=== PATIENT | female | born 1940 | race Caucasian/White ===

== ENCOUNTER 2020-07-13 09:49 | Outpatient (CLI) | payer MEDICARE, SELFPAY ==
--- NOTE | ~2020-07-13 | MM_ITS ---
EXAMINATION: MM screening [facility] BI w ximena HISTORY: Screening mammogram TECHNIQUE: Craniocaudal and mediolateral oblique 3-D tomosynthesis images were obtained and synthetic 2-D images were generated. CAD analysis was submitted and interpreted. COMPARISON: 06/20/2109, 04/08/2016, 07/18/2014 BREAST PARENCHYMAL COMPOSITION: There are scattered areas of fibroglandular density. FINDINGS: Scattered benign-appearing calcifications are present. There is no evidence of suspicious m ass, calcification, or architectural distortion to suggest malignancy in either breast. There has bee n no suspicious interval change. IMPRESSION: 1. No mammographic evidence of malignancy. 2. Recommend routine screening mammography in one year. BI-RADS Category 2: Benign finding(s). Reviewed, dictated and finalized at location A. 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
--- NOTE | ~2020-07-13 | DEXA_ITS ---
Bone Density Report Name: Yolanda Aguirre Age: 79 Sex: Female Ethnicity: White Date of : 1940 Indication: postmenopausal; height loss; Referring Provider: Bianca Bravo Study: Bone densitometry was performed. Exam Date: July 13, 2020 Accession number: [id number] Bone Density: Region BMD T-score Z-score Classification AP Spine (L1-L4) 1.136 0.8 3.4 Normal Femoral Neck (Left) 0.646 -1.8 0.4 Osteopenia Total Hip (Left) 0.833 -0.9 1.1 Normal Total Hip Bilateral Avg 0.873 -0.5 1.5 Normal Femoral Neck (Right) 0.699 -1.4 0.9 Osteopenia Total Hip (Right) 0.913 -0.2 1.8 Normal World Health Organization criteria for BMD impression classify patients as: Normal (T-score at or above -1.0), Osteopenia (T-score between -1.0 and -2.5), or Osteoporosis (T-score at or below -2.5). 10-year Fracture Risk(1): Major Osteoporotic Fracture 14% Hip Fracture 3.6% Reported Risk Factors: [place] (), Neck BMD=0.646, BMI=30.0 (1) FRAX(R) Version 3.08. Fracture probability calculated for an untreated patient. Fracture probability may be lower if the patient has received treatment. Previous Exams: Region Exam Age BMD T-score BMD Change BMD Change Date g/cm2 vs Baseline vs Previous AP Spine(L1-L4) 07/13/2020 79 1.136 0.8 0.071(6.6%)# 0.065(6.1%)* 04/08/2016 75 1.071 0.2 0.005(0.5%)# -0.045(-4.0%)# 05/26/2011 70 1.115 0.6 0.050(4.7%)* 0.050(4.7%)* 10/28/2008 68 1.066 0.2 Total Hip(Left) 07/13/2020 79 0.833 -0.9 -0.070(-7.8%)# -0.010(-1.1%) 04/08/2016 75 0.843 -0.8 -0.061(-6.7%)# -0.018(-2.1%)# 05/26/2011 70 0.861 -0.7 -0.043(-4.8%)* -0.043(-4.8%)* 10/28/2008 68 0.904 -0.3 Total Hip(Right) 07/13/2020 79 0.913 -0.2 -0.002(-0.2%)# 0.083(9.9%)* 04/08/2016 75 0.831 -0.9 -0.085(-9.2%)# -0.054(-6.1%)# 05/26/2011 70 0.885 -0.5 -0.031(-3.4%)* -0.031(-3.4%)* 10/28/2008 68 0.915 -0.2 *Denotes significance at 95% confidence level, LSC for AP Spine = 0.022 g/cm2, LSC for Total Hip = 0.027 g/cm2 Clinical Information Provided by Patient: Has used the following medications: Vitamin D, Calcium Patient maximum height was 65 No regular weight bearing exercise Drinks caffeinated beverages Onset of menses at age 13 Number of children 4 Impression: The patient has low bone mass, based on the Left Femoral Neck T-score. The patient has an estimated ten-year risk of hip f
== END 2020-07-13 09:50 | disposition home or self-care (01) ==
PROVIDERS: PCP Family Medicine; Visit Provider Physician Assistant
DX: Z12.31 Encounter for screening mammogram for malignant neoplasm of breast (principal); Z78.0 Asymptomatic menopausal state; M85.852 Other specified disorders of bone density and structure, left thigh; M85.851 Other specified disorders of bone density and structure, right thigh
CPT/HCPCS: 77063; 77067; 77080

== ENCOUNTER 2022-07-14 09:51 | Outpatient (CLI) | payer MEDICARE, SELFPAY ==
--- NOTE | ~2022-07-14 | DEXA_ITS ---
Bone Density Report Name: PATRICIO JACKMAN Age: 81 Sex: Female Ethnicity: White Date of : 1940 Indication: postmenopausal; screening for osteoporosis; height loss; Referring Provider: GABRIELA REYNOLDS Study: Bone densitometry was performed. Exam Date: July 14, 2022 Accession number: [id number] Bone Density: Region BMD T-score Z-score Classification AP Spine(L1-L4) 1.118 0.6 3.4 Normal Femoral Neck (Left) 0.611 -2.1 0.2 Osteopenia Total Hip (Left) 0.821 -1.0 1.1 Normal Femoral Neck (Right) 0.697 -1.4 1.0 Osteopenia Total Hip (Right) 0.879 -0.5 1.6 Normal Total Hip Mean 0.850 -0.8 1.4 Normal World Health Organization criteria for BMD impression classify patients as: Normal (T-score at or above -1.0), Osteopenia (T-score between -1.0 and -2.5), or Osteoporosis (T-score at or below -2.5). 10-year Fracture Risk(1): Major Osteoporotic Fracture 16% Hip Fracture 4.9% Reported Risk Factors: [place] (), Neck BMD=0.611, BMI=29.8 (1) FRAX(R) Version 3.08. Fracture probability calculated for an untreated patient. Fracture probability may be lower if the patient has received treatment. Clinical Information Provided by Patient: Has used the following medications: Vitamin D, Calcium Patient maximum height was 65 Menopause Age: 51 No regular weight bearing exercise Drinks caffeinated beverages Onset of menses at age 12 Number of children 5 Impression: The patient has low bone mass, based on the Left Femoral Neck T-score. The patient has an estimated ten-year risk of hip fracture of 4.9% and an estimated ten-year risk of major fracture of 16%, based on the WHO FRAX algorithm. Discussion: BONE DENSITY IS LOW AT ONE OR MORE SKELETAL SITES. THE PATIENT'S BMD AND CLINICAL RISK FACTORS CONTRIBUTE TO THIS PATIENT'S INCREASED RISK OF FRACTURE. This patient's lowest T-score is low at one or more skeletal sites. It meets the World Health Organization's (WHO) criteria for ?low bone mass? (T-score between -1.0 and -2.5). The patient's 10-year risk of hip fracture as calculated by FRAX exceeds the threshold where pharmacological therapy is recommended by the National Osteoporosis Foundation (NOF). However, all treatment decisions require clinical judgment and consideration of individual patient factors, including patient preferences, comorbidities, previous drug use, risk factors not captured in the FRAX model (e.g., frailty, falls, vitamin D deficiency, increased bone turnover, interval significant decline in bone density) and possible under or overestimation of fracture risk by FRAX. The patient should follow a healthful lifestyle (good nutrition with adequate calcium and vitamin D, and appropriate weight-bearing exercise). Follow-Up: Consider a repeat BMD and Vertebral Fr
--- NOTE | ~2022-07-14 | MM_ITS ---
EXAMINATION: MM screening [facility] BI w ximena HISTORY: Screening TECHNIQUE: Craniocaudal and mediolateral oblique 3-D tomosynthesis images were obtained and synthetic 2-D images were generated. CAD analysis was submitted and interpreted. COMPARISON: Comparison to multiple prior studies sequentially, with oldest reviewed study dated 10/2012. BREAST PARENCHYMAL COMPOSITION: There are scattered areas of fibroglandular density. FINDINGS: There is no evidence of suspicious mass, calcification, or architectural distortion to sugg est malignancy in either breast. There has been no suspicious interval change. IMPRESSION: 1. No mammographic evidence of malignancy. 2. Recommend routine screening mammography in one year. 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
== END 2022-07-14 09:52 | disposition home or self-care (01) ==
PROVIDERS: PCP Family Medicine; Visit Provider Family Medicine
DX: Z12.31 Encounter for screening mammogram for malignant neoplasm of breast (principal); Z78.0 Asymptomatic menopausal state; M85.852 Other specified disorders of bone density and structure, left thigh; M85.851 Other specified disorders of bone density and structure, right thigh
CPT/HCPCS: 77063; 77067; 77080

== ENCOUNTER → 2022-10-18 11:08 | Outpatient (CLI) | payer MEDICARE, SELFPAY ==
--- NOTE | ~2022-10-18 | XR_ITS ---
Clinical Indication: Swelling PA and lateral views of the chest: Comparison: 07/12/2016 Findings: The lungs are clear, without evidence of focal consolidation or pleural effusion. Cardiome diastinal silhouette is stable, status post aortic valve replacement.. Bones and soft tissues are unr emarkable. Impression: Clear lungs. Status post aortic valve replacement. Reviewed, dictated and finalized at location . Impression: Clear lungs. Status post aortic valve replacement.
== END ==
PROVIDERS: PCP Family Medicine; Visit Provider Family Medicine
DX: R22.2 Localized swelling, mass and lump, trunk (principal); Z95.2 Presence of prosthetic heart valve
CPT/HCPCS: 71046

== ENCOUNTER 2024-12-15 16:58 | Emergency (ER) | payer MEDICARE, SELFPAY ==
--- NOTE | ~2024-12-15 | CT_ITS ---
History: Fall with loss of consciousness PROCEDURE: CT head without contrast. COMPARISON: None TECHNIQUE: Axial imaging of the head performed from the skull base to the vertex without IV contrast. Sagittal a nd coronal reformations obtained. DLP: 605 mGy-cm FINDINGS: The ventricles are enlarged. The dilatation of the ventricles is proportional to the degree of sulcal prominence, not uncommon in the senescent brain. Decreased attenuation is identified within the periventricular white matter, likely secondary to micr ovascular ischemic disease, in a patient of this age. There is no mass, mass effect or midline shift. Acute intracranial hemorrhage is identified along the right falx, high in the convexity, likely relat ed to recent trauma. This focus of hemorrhage measures 19 mm in cranial to caudal dimension, and 3.3 mm in medial to lateral dimension. Left occipital scalp hematoma without underlying fracture. Visualized paranasal sinuses are clear. The mastoid air cells are well aerated. No acute displaced fractures within the overlying cranium. Impression: Small acute intracranial hemorrhage along the right falx, high in the convexity, as detailed above. No surrounding edema. No midline shift. These findings were discussed with Ani Harp at 7:00 PM on 12/15/2024 Reviewed, dictated and finalized at location A. Impression: Small acute intracranial hemorrhage along the right falx, high in the convexity , as detailed above. No surrounding edema. No midline shift. These findings were discussed with Ani Hapr at 7:00 PM on 12/15/2024
--- NOTE | ~2024-12-15 | CT_ITS ---
CLINICAL INDICATION: COMPARISON: . TECHNIQUE: Multiple contiguous axial images of the chest was performed without the administration of intravenous contrast. This CT examination was performed utilizing dose reduction techniques. DLP: 280 mGy-cm FINDINGS/OBSERVATIONS: LUNG: Redemonstration of the left sided pneumothorax, previously seen on CT examination of the cervical spi ne. Lateral scar tissue is present, maintaining the left upper lobe without complete collapse. The left lower lobe is intact, with only a small posterior medial pneumothorax, as well as a small le ft-sided pleural effusion, likely hemorrhage from rib fractures. No right-sided pneumothorax is present. HEART: The heart is enlarged, without pericardial effusion. MEDIASTINUM: No pathologically enlarged or morphologically suspicious lymph nodes are identified within the medias tinum, bilateral axilla, within the soft tissues of the anterior chest wall. SOFT TISSUES OF THE CHEST: Unremarkable. BONES OF THE CHEST: Acute minimally displaced fractures of the left anterior lateral third through eighth ribs. No right-sided rib fractures are present. The sternum is intact, with multiple sternal wires. No lytic or blastic lesions are identified. IMPRESSION: Left-sided pneumothorax, of approximately 15-20%, as detailed above. Acute minimally displaced fractures of the left anterior lateral third through eighth ribs. These findings were discussed with Ani Harp at 7:10 PM on 12/15/2024 Reviewed, dictated and finalized at location A.
--- NOTE | ~2024-12-15 | CT_ITS ---
History: Fall PROCEDURE: CT cervical spine without intravenous contrast. COMPARISON: None TECHNIQUE: Multiple contiguous axial images of the cervical spine were performed without the administration of i ntravenous contrast. DLP: 450 mGy-cm FINDINGS: Straightening and slight reversal of the normal curvature of the cervical spine is identified, likely muscular in origin. Severe degenerative disease is identified with osteophyte formation, disc space narrowing, endplate c hanges and vacuum phenomena. Facet arthropathy is also noted. No acute fractures are present within the cervical spine. The right lung apex is unremarkable. A left upper lobe pneumothorax is present, for which the extent will be visualized on CT examination of the chest, performed on the same day. No soft tissue abnormality is present. The airway is patent. Impression: Straightening and slight reversal of the normal curvature of the cervical spine, likely muscular in o rigin. Degenerative disease, without acute fracture. Left-sided pneumothorax, the extent of which will be better delineated on CT examination of the chest , performed on the same day. These findings were discussed with Ani Harp at 7:10 PM on 12/15/2024. Reviewed, dictated and finalized at location A. Impression: Straightening and slight reversal of the normal curvature of the cervical spine , likely muscular in origin. Degenerative disease, without acute fracture. Left-sided pneumothorax, the extent of which will be better delineated on CT ex amination of the chest, performed on the same day. These findings were discussed with Ani Harp at 7:10 PM on 12/15/2024.
--- OUTSIDE RECORDS SUMMARY | 2024-12-15 17:00 | XMS_ITS | Referral Summary ---
Author Organization [facility] [address] [facility] [address] Address [address] [place] [address] Care Team Providers Care Web Production Manager Name Role Phone Ani Leon MD Primary Care Provider Encounters Date Type Department Care Team Description 09/27/2024 11:00 AM FIRE EXTINGUISHER REPAIRER Office Visit [facility] Cardiology [address] [facility] [address] [place] [address] Shaun Benton MD S/P aortic valve replacement with bioprosthetic valve (Primary Dx); History of coronary artery bypass surgery from Last 3 Months Allergies No known active allergies Medications multivit-minera x-jgpf-eqlijb (CENTRUM SILVER ULTRA WOMEN'S) tablet 0 0 5 Active omega-3 fatty acids-vitamin E (FISH OIL) 1,000 mg capsule take 1 by oral route every day 0 0 5 Active aspirin (ASPIR-81) 81 mg tablet take 1 Tablet by oral route every day 0 0 5 Active lisinopril (PRINIVIL,ZESTR IL) 5 mg tablet take 1 tablet by oral route 2 times every day 30 5 5 Active nitroglycerin (NITROSTAT) 0.[address] 1 tablet by sublingual route at the 1st sign of attack; may repeat every 5 min until relief; if pain persists after 3 tablets in 15 min, prompt medical attention is recommended 0 0 6 Active metFORMIN (GLUCOPHAGE) 1,000 mg tablet take 1 tablet by oral route 2 times every day with morning and evening meals 0 0 7 Active Additional Information Patient not taking.Reported on 09/27/2024 metoprolol (LOPRESSOR) 25 mg tablet take 1/2 tablet by oral route 2 times every day 0 0 5 Active Additional Information Patient taking differently:25 mgoral 2 times daily, Reported on 09/27/2024 atorvastatin (LIPITOR) 20 mg tablet Take 1 tablet (20 mg total) by mouth daily. 90 tablet 2 7 Active calcium-vits T4-G-V5-mineral s 166.75 mg- 166.75 unit capsule Take by mouth Active sertraline (ZOLOFT) 25 mg tablet 1 Active alendronate (FOSAMAX) 70 mg tablet Take 1 tablet (70 mg total) by mouth every 7 days Take in the morning with a full glass of water, on an empty stomach, and do not take anything else by mouth or lie down for the next 30 min. Active Active Problems Problem Noted Date Diagnosed Date Bicuspid aortic valve 03/13/2017 S/P aortic valve replacement with bioprosthetic valve 03/13/2017 Chronic fatigue 03/13/2017 Coronary artery disease invo lving [place] coronary artery of [place] heart without angina pectoris 03/13/2017 History of coronary artery bypass surgery 2015 Overview (11/04/2016): S/P CABG (coronary artery bypass graft) Muscle pain 03/23/2016 Overview (11/04/2016): Myalgia H/O acute myocardial infarction 03/23/2016 Overview (11/04/2016): H/O acute myocardial infarction Hypertension associated with diabetes 08/28/2014 Overview (11/04/2016): Hypertension Hypercholesterolemia 08/28/2014 Overview (11/04/2016): Hypercholesterolemia Tobacco dependence syndrome 08/28/2014 Overview (11/04/2016): Tobacco abuse Chronic renal impairment 08/28/2014 Overview (11/04/2016): Chronic kidney disease Mixed diabetic hyperlipidemi a associated with type 2 diabetes mellitus (CMS/HCC) 08/28/2014 Overview (11/04/2016): Diabetes Eczema 08/28/2014 Overview (11/04/2016): Eczema Aortic valve stenosis 08/28/2014 Overview (11/04/2016): Aortic stenosis Resolved Problems Problem Noted Date Diagnosed Date Resolved Date Dyslipidemia 03/23/2016 12/20/2021 Overview (11/04/2016): Dyslipidemia Social History Tobacco Use Types Packs/Day Years Used Date Smoking Tobacco: Former Smokeless Tobacco: Never Tobacco Cessation:Counseling Given: Yes Alcohol Use Standard Drinks/Week Comments No 0 (1 standard drink = 0.6 oz pur e alcohol) Comments Unknown Sex and Gender Information Value Date Recorded Sex Assigned at Not on file Legal Sex Female 2:01 AM FIRE EXTINGUISHER REPAIRER Gender Identity Not on file Sexual Orientation Not on file Last Filed Vital Signs Vital Sign Reading Time Taken Comments Blood Pressure 150/76 09/27/2024 11:06 AM FIRE EXTINGUISHER REPAIRER Pulse 82 09/27/2024 11:06 AM FIRE EXTINGUISHER REPAIRER Temperature - - Respiratory Rate 97 09/27/2024 11:0 6 AM FIRE EXTINGUISHER REPAIRER Oxygen Saturation 99% 12/20/2021 11: 42 AM CDT Inhaled Oxygen Concentration - - Weight 76.1 kg (167 lb 12.8 oz) 025 11:06 AM FIRE EXTINGUISHER REPAIRER Height 162.6 cm (5' 4 ) 09/27/2024 11:0 6 AM FIRE EXTINGUISHER REPAIRER Body Mass Index 28.8 09/27/2024 11:06 AM FIRE EXTINGUISHER REPAIRER Plan of Treatment Not on file Procedures Procedure Name Priority Date/Time Associated Diagnosis Comments POCT LIPID PANEL Routine 12/20/2021 12:4 7 PM CDT Mixed diabetic hyperlipidemia associated with type 2 diabetes mellitus (HCC) from Last 3 Months or Most Recently Relevant to Health Maintenance Results * POCT lipid panel (12/20/2021 12:47 PM CDT) Cholesterol, POC <100 mg/dL Comment:GLU = 140 HDL, POC 25 mg/dL Triglycerides, POC 119 mg/dL LDL Cholesterol POC 51 mg/dL Chol/HDL Ratio, POC N/A Non-HDL Cholesterol, POC N/A mg/dL Cholesterol Total, POC <100 mg/dL Capillary blood 12/20/2021 1 2:47 PM CDT Link Yi MD POINT OF CARE TEST ORDER BEBE Final Result from Last 3 Months or Most Recently Relevant to Health Maintenance Insurance Care Teams Web Production Manager Relationship Specialty Start Date End Date Ani Leon MD [address] [facility] [address] [place] [address] PCP - General Family Medicine 11/02/17
--- OUTSIDE RECORDS SUMMARY | 2024-12-15 17:00 | XMS_ITS | Clinical Summary ---
Author Organization [facility] [address] Address [address] [place] [address] Care Team Providers Care Police Captain Senior Name Role Phone Ani Leon MD Primary Care Provider Allergies No known active allergies Medications multivit-minera b-uqbq-ocgqoe (CENTRUM SILVER ULTRA WOMEN'S) tablet 0 0 [...] daily. 90 tablet 2 7 Active calcium-vits L0-A-W3-mineral s 166.75 mg- 166.75 unit capsule Take [...] fatigue 03/13/2017 Coronary artery disease invo lving minto coronary artery of [place]into heart without angina pectoris 03/13/2017 History of [...] a associated with type 2 diabetes mellitus ([facility]) 08/28/2014 Overview (11/04/2016): Diabetes Eczema 08/28/2014 Overview (11/04/2016): Eczema Aortic valve stenosis 08/28/2014 Overview (11/04/2016): Aortic stenosis Resolved Problems Problem Noted Date Diagnosed Date Resolved Date Dyslipidemia 03/23/2016 12/20/2021 Overview (11/04/2016): Dyslipidemia Encounters Date Type Department Care Team Description 09/27/2024 11:00 AM FINISHER ACCORDION Office Visit [facility] Medical Group Cardiology [address] [place] [address] Shaun Benton MD S/P aortic valve replacement with bioprosthetic valve (Primary Dx); History of coronary artery bypass surgery from Last 3 Months Medical History Medical History Date Comments Hx Other Medical hypertension, a ortic stenosis, eczema, obesity, hi; Comments: [facility] 08/28/2014 - Hx Other Medical CAD; Comments: [facility] 09/25/2014 - Family History Medical History Relation Name Comments Heart attack Father Myocardial infa rction; Cause of : Myocardial infarction Heart attack Mother Myocardial infa rction; Relation Name Status Comments Father Mother Social History Tobacco Use Types Packs/Day Years Used Date Smoking Tobacco: Former Smokeless Tobacco: Never Tobacco Cessation:Counseling Given: Yes Alcohol Use Standard Drinks/Week Comments No 0 (1 standard drink = 0.6 oz pur e alcohol) Comments Unknown Sex and Gender Information Value Date Recorded Sex Assigned at Not on file Legal Sex Female 2:01 AM FINISHER ACCORDION Gender Identity Not on file Sexual Orientation Not on file Obstetrics History Last Filed Vital Signs Vital Sign Reading Time Taken Comments Blood Pressure 150/76 09/27/2024 11:06 AM FINISHER ACCORDION Pulse 82 09/27/2024 11:06 AM FINISHER ACCORDION Temperature - - Respiratory Rate 97 09/27/2024 11:0 6 AM FINISHER ACCORDION Oxygen Saturation 99% 12/20/2021 11: 42 AM CDT Inhaled Oxygen Concentration - - Weight 76.1 kg (167 lb 12.8 oz) 025 11:06 AM FINISHER ACCORDION Height 162.6 cm (5' 4 ) 09/27/2024 11:0 6 AM FINISHER ACCORDION Body Mass Index 28.8 09/27/2024 11:06 AM FINISHER ACCORDION Plan of Treatment Health Maintenance Due Date Last Done Comments Albumin Creatinine Ratio, Urine 1940 Depression Screening 1940 Fall Risk Assessment 1940 Hemoglobin A1C 1940 Osteoporosis Screening-Bone Density Scan 1940 eGFR 1940 Dilated Eye Exam 1941 Foot Exam 1940 DTaP/Tdap/Td Vaccine (1 - Tdap) 1952 Hepatitis B Screening 1959 Pneumococcal vaccine 65+ (1 of 2 - PCV) 1960 Zoster Vaccine (1 of 2) 1991 Well Visit 65+ 2006 Lipid Panel 12/20/2022 12/20/2021, 04/30, 02/08/2019, Additional history exists Influenza Vaccine (Season Ended) 2025 05/09/2019, 05/13/2018, 05/29/2017, Additional history exists Procedures Procedure Name Priority Date/Time Associated Diagnosis [...] Most Recently Relevant to Health Maintenance Insurance [facility] HMO REF [facility] Address: [address] [address] [place] [address] [facility] [employer]CR HMO REF [facility] Address: [address] [address] [place] [address] Care Teams Police Captain Senior Relationship Specialty Start Date End Date Ani Leon MD [address] [place] [address] PCP - General Family Medicine 11/02/17
--- OUTSIDE RECORDS SUMMARY | 2024-12-15 17:00 | XMS_ITS | Clinical Summary ---
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 Name Role Phone Kathleen Vázquez MD Primary Care Provider [phone] Social History Tobacco Use Types Packs/Day Years Used Date Smoking Tobacco: Former Comments Unknown Sex and Gender Information Value Date Recorded Sex Assigned at Not on file Legal Sex Female 9:46 PM CDT Gender Identity Not on file Sexual Orientation Not on file Last Filed Vital Signs Vital Sign Reading Time Taken Comments Blood Pressure 126/70 10/20/2014 2:55 PM CDT Pulse 62 10/20/2014 2:54 PM CDT Temperature - - Respiratory Rate - - Oxygen Saturation - - Inhaled Oxygen Concentration - - Weight 80.7 kg (178 lb) 10/20/2014 2:54 PM CDT Height 162.6 cm (5' 4 ) 10/20/2014 2:54 PM CDT Body Mass Index 30.55 10/20/2014 2:54 PM CDT Plan of Treatment Health Maintenance Due Date Last Done Comments DTaP, Tdap and Td Vaccines ( 1 - Tdap) 1960 Pneumococcal Vaccine: 50+ Ye ars (1 of 1 - PCV) 1991 Zoster Vaccines (1 of 2) 1991 Dexa Scan (General) 2006 RSV Immunization or 60+ Years (1 - 1-dose 75+ series) 2016 COVID-19 Vaccine (2023-2 5 season) 2024 Meningococcal B Vaccine Aged Out No l onger eligible based on patient's age to complete this topic Meningococcal Vaccine Aged Out No emmy cornelius eligible based on patient's age to complete this topic RSV Immunizations Under 20 Months Aged Out No longer eligible based on patient's age to complete this topic Care Teams Machine Setter Sheet Metal Relationship Specialty Start Date End Date Kathleen Vázquez MD PCP - General 10/27/14
[2024-12-15 17:07] VITALS: BP 147/93; PULSE 98; RESP 16; TEMP 36.9; O2SAT 100
--- NOTE | 2024-12-15 17:10 | PC.NURSE ---
KAVITHA Law assessing pt. in triage room.
--- NOTE | 2024-12-15 17:12 | ED_ITS ---
HPI - Fall General Chief Complaint: Fall <Rissa Harp PA-C - Last Filed: 12/16/24 03:06> Stated Complaint: fall, hit head <Rsisa Harp PA-C - Last Filed: 12/16/24 03:06> Time Seen by Provider: 12/15/24 17:12 <Rissa Harp PA-C - Last Filed: 12/16/24 03:06> Focused HPI: 84-year-old female presents to emergency department for fall that occurred prior to arrival. Patient was leaning on a gate in her backyard that she did not realize was open, the gate open and cause the patient to fall down approximately 4 steps. She hit the back of her head on the ground and lost consciousness for about 30 seconds. She is not anticoagulated. She is reporting pain and laceration to the back of her head and pain to the left anterior and posterior ribs. She denies other injuries acquired including back pain, abdominal pain, upper lower extremity injury. Last Tdap unknown. GENERAL: Well-appearing, well-nourished, and in no acute distress. HEAD: Normocephalic. Approximately 4 cm laceration to the posterior scalp, no active bleeding, dried blood to the hair CHEST: Clear to auscultation. No respiratory distress. Tenderness to the left anterior posterior chest wall with no crepitus or deformity HEART: Regular rate and rhythm. NEURO: Alert and oriented x3. Patient screened in triage and initial orders placed. Additional care and disposition to be based upon diagnostic testing and treatment. <Rissa Harp PA-C - Last Filed: 12/16/24 03:06> Source: patient <Sol Francis MD - Last Filed: 12/15/24 20:02> Mode of arrival: EMS <Sol Francis MD - Last Filed: 12/15/24 20:02> Limitations: no limitations <Sol Francis MD - Last Filed: 12/15/24 20:02> History of Present Illness HPI Narrative: Agree with the above with the following additions/corrections: Lock gave way on the fence. Patient took generic acetaminophen prior to arrival. She notes that she is a heart patient with a history of a myocardial infarction in August 2014 requiring stent(s); follows with cardiology at [facility] but then it was followed by a triple bypass procedure in February at [facility] in [facility] with an artificial aortic valve and aortic valve repair. Lost consciousness for approximately 30 seconds reported by son who witnessed the fall. Patient not on anticoagulation but on 81mg ASA. She is complaining of pain where the laceration is back of her head, headache, and, in particular, pain on the left side as well as under her left breast. <Sol Francis MD - Last Filed: 12/15/24 20:02> Related Data Home Medications: Home Medications Medication Instructions Recorded Confirmed Last Taken Type aspirin 81 mg tablet,delayed 81 mg PO DAILY 05/18/20 12/15/24 Unknown History release (Adult Low Dose Aspirin) rosghxky-cjrwlvh-vabe-lutein tablet tablet PO 05/18/20 10/31/24 Unknown History nitroglycerin 0.4 mg sublingual 0.4 mg sublingual Q5M PRN chest 05/18/20 12/15/24 Unknown History tablet pain omega-3 fatty acids 1,000 mg 1,000 mg PO BID 05/18/20 12/15/24 Unknown History capsule (Fish Oil Concentrate) <Rissa Harp PA-C - Last Filed: 12/16/24 03:06> Allergies/Adverse Reactions: Allergies Allergy/AdvReac Type Severity Reaction Status Date / Time No Known Allergies Allergy Mild Verified 12/15/24 16:58 <Rissa Harp PA-C - Last Filed: 12/16/24 03:06> [facility] Past Medical History Medical History: Medical History (Updated 12/16/24 @ 00:01 by Background Slade) Osteopenia Mixed hyperlipidemia Healthcare maintenance Former tobacco use Elevated ALT measurement Vitamin D deficiency, unspecified Valvular heart disease Stable angina Osteopenia of multiple sites Ischemic cardiomyopathy Impaired glucose tolerance Impaired fasting glucose Hyperlipidemia with target LDL less than 100 Hx of myocardial infarction 2015 High risk medication use CKD (chronic kidney disease) stage 3, GFR 30-59 ml/min Breast screening Borderline diabetes Benign essential HTN Aortic valve sclerosis Acute right-sided thoracic back pain Major depressive disorder, recurrent, moderate Prediabetes CAD (coronary artery disease) Mixed hyperlipidemia HTN (hypertension) <Rissa Harp PA-C - Last Filed: 12/16/24 03:06> Surgical History Surgical History: Surgical History (Updated 12/15/24 @ 19:36 by Sol Francis MD) H/O aortic valve replacement [facility] History of right coronary artery stent placement History of coronary artery bypass graft x 2 History of aortic valve replacement with bioprosthetic valve Status post transcatheter aortic valve replacement History of coronary artery stent placement 2015 S/P CABG x 3 <ANGELIKA Brinoes Last Filed: 12/16/24 03:06> Family History Family History: Family History Father Family history of heart disease in male family member before age 55 Hypertension, Onset Age: 79 Family history of coronary artery disease, Onset Age: 79 Mother Family history of heart disease in male family member before age 55 Cerebrovascular accident Sibling Family history of malignant neoplasm of breast in first degree relative Grandparent Family history of heart disease in male family member before age 55 Other Diabetes mellitus <ANGELIKA Briones Last Filed: 12/16/24 03:06> Social History Social History: Social History Social History: Smoking status: Former smoker Tobacco type: cigarettes Second hand tobacco smoke exposure: No Smoking end date: 07/31/14 Alcohol intake: never Substance use: never Substance use type: does not use Do You Feel Safe in your Home?: Yes Lack of Transportation: No Lack of Food: Never True Current Housing: I Have Housing Concerned About Future Housing: No Difficulty Paying Gas/Electric Bills: No Difficulty Paying for Meds: No Currently Unemployed: YES Education: Don't Know Difficulty w/ Childcare or Family Care: No Living arrangements: with family Occupation/Education: retired Gender identity (if verbalized by the patient): Female Sexual Orientation (if Verbalized by the Patient): Straight or Heterosexual <ANGELIKA Briones Last Filed: 12/16/24 03:06> Exam 2 Narrative: GENERAL: Well-appearing, well-nourished, and in no acute distress. HEAD: Normocephalic, atraumatic. 3 cm posterior lateral linear laceration on scalp. Significant bleeding noted on blue armando underneath but bleeding now well controlled on exam after irritgation has been performed, blood on armando may also represent dilution from this. EYES: Non injected, non icteric. ENT: Nares clear, no rhinorrhea or epistaxis. NECK: Supple. CHEST: Speaking in full sentences. No respiratory distress. Tenderness to palpation along left lateral chest as well as in particular along left anterior chest particularly inframammary. No subcutaneous emphysema/crepitus. HEART: Regular rate and rhythm. ABDOMEN: Soft, nondistended. EXTREMITIES: Normal range of motion. No lower extremity edema. SKIN: Warm, dry, laceration as above NEURO: No focal deficits. Alert and oriented x3. PSYCH: Normal mood and affect. <Sol Farncis MD - Last Filed: 12/15/24 20:02> Course Reevaluation(s) Reevaluation #1: Patient signed out to me. CT brain shows small intracranial hemorrhage; this is immediately discussed with patient/family and transfer initiated; they have requested [facility] so I have contacted them; accepting Dr Doherty. Patient/son now requesting [facility]. I contacted [facility], d/w accepting ER Dr Lassiter. <Katelyn Bernal MD - Last Filed: 12/15/24 20:11> Vital Signs Vital signs: Vital Signs Temperature 98.5 F 12/15/24 17:07 Pulse Rate 98 12/15/24 17:07 Respiratory Rate 16 12/15/24 17:07 Blood Pressure 147/93 H 12/15/24 17:07 Pulse Oximetry 100 12/15/24 17:07 Temperature 98.5 F 12/15/24 17:07 Pulse Rate 113 H 12/15/24 20:46 Respiratory Rate 15 12/15/24 20:46 Blood Pressure 134/77 12/15/24 20:46 Pulse Oximetry 98 12/15/24 20:46 <Rissa Harp PA-C - Last Filed: 12/16/24 03:06> Vital Signs Temperature 98.5 F 12/15/24 17:07 Pulse Rate 98 12/15/24 17:07 Respiratory Rate 16 12/15/24 17:07 Blood Pressure 147/93 H 12/15/24 17:07 Pulse Oximetry 100 12/15/24 17:07 Temperature 98.5 F 12/15/24 17:07 Pulse Rate 113 H 12/15/24 20:46 Respiratory Rate 15 12/15/24 20:46 Blood Pressure 134/77 12/15/24 20:46 Pulse Oximetry 98 12/15/24 20:46 <Sol Francis MD - Last Filed: 12/15/24 20:02> Vital Signs Temperature 98.5 F 12/15/24 17:07 Pulse Rate 98 12/15/24 17:07 Respiratory Rate 16 12/15/24 17:07 Blood Pressure 147/93 H 12/15/24 17:07 Pulse Oximetry 100 12/15/24 17:07 Temperature 98.5 F 12/15/24 17:07 Pulse Rate 113 H 12/15/24 20:46 Respiratory Rate 15 12/15/24 20:46 Blood Pressure 134/77 12/15/24 20:46 Pulse Oximetry 98 12/15/24 20:46 <Katelyn Bernal MD - Last Filed: 12/15/24 20:11> Procedures Laceration Laceration 1: Date: 12/15/24 <Sol Francis MD - Last Filed: 12/15/24 20:02> Time: 19:00 <Sol Francis MD - Last Filed: 12/15/24 20:02> Site: scalp <Sol Francis MD - Last Filed: 12/15/24 20:02> Side (If applicable): left <Sol Francis MD - Last Filed: 12/15/24 20:02> Size (cm): 3 <Sol Francis MD - Last Filed: 12/15/24 20:02> Description: linear <Sol Francis MD - Last Filed: 12/15/24 20:02> Depth: simple, single layer <Sol Francis MD - Last Filed: 12/15/24 20:02> Local Anesthetic: none <Sol Francis MD - Last Filed: 12/15/24 20:02> Pre-repair: wound explored and irrigated <Sol Francis MD - Last Filed: 12/15/24 20:02> ====== Skin Level ======: Skin layer closed with: nasrin <Sol Francis MD - Last Filed: 12/15/24 20:02> Number of sutures: 6 <Sol Francis MD - Last Filed: 12/15/24 20:02> Technique: simple, interrupted <Sol Francis MD - Last Filed: 12/15/24 20:02> ====== Subcutaneous Layer ======: ====== Muscle Layer ======: ====== Tendon Layer ======: MDM - Fall MDM Narrative Medical decision making narrative: Patient presents after an accidental ground level fall in which she was leaning on gait which he gave way and she struck her head on concrete behind her. She lost consciousness for 30 seconds as reported by her son. Not on anticoagulation but is on 81 mg aspirin. Sustained a head laceration is complaining of pain there, general headache, and pain along left lateral and anterior chest particularly under breast. In the emergency department she is afebrile with vital signs that are acceptable, mild hypertension. Tetanus updated. CT initially attempted but patient into much pain and she is return to the room. Patient is medicated with morphine and feeling better on reassessment. She has a leukocytosis. She is not anemic. Creatinine is slightly elevated; will give small fluid bolus. Laceration repair as above. PA notified by radiologist that patient has intracranial hemorrhage as below. Oncoming ED physician Dr Bernal informed patient and we both updated patient's son. PA notified by radiologist that patient also has multiple rib fractures and pneumothorax. She has been saturating appropriately but NRB O2 for lung expansion/re-inflation ordered. Oncoming physician discussed patient with OSH who accepted transfer. Transportation to be arranged. == Critical Care: 1 or more vital organ systems impaired with a high probability of imminent or life-threatening deterioration in the patient's condition requiring frequent personal assessment and manipulation of the patient's condition. This included time spent evaluating the patient, speaking with EMS pre-hospital personnel and family, reviewing/interpreting laboratory/imaging studies, discussing the case with consultants or admitting teams, retrieving data and reviewing charts, monitoring for decompensation, documenting the visit, and performing bundled procedures exclusive of separately billed procedures. <Sol Francis MD - Last Filed: 12/15/24 20:02> Differential Diagnosis Differential diagnosis: Likely compression fracture, concussion with loss of consciousness and other (Intracranial hemorrhage, pneumothorax/hemothorax/hemopneumothorax; rib fracures; laceration; skull fracture) <Sol Francis MD - Last Filed: 12/15/24 20:02> Lab Data Attestation: I reviewed the patient's lab results. <Sol Francis MD - Last Filed: 12/15/24 20:02> Result diagrams: 12/15/24 18:14 12/15/24 18:14 <Rissa Harp PA-C - Last Filed: 12/16/24 03:06> Labs: Lab Results 12/15/24 Range/Units 18:14 WBC 12.8 H (4.5-10.0) K/mm3 RBC 4.29 (4.2-5.4) M/mm3 Hgb 12.0 (12.0-15.0) g/dL Hct 38.2 (37.0-47.0) % MCV 89.0 (80-100) fl MCH 28.0 (26-34) pg MCHC 31.4 L (32-36) g/dl RDW 13.5 (11.5-14.5) % Plt Count 210 (150-375) k/mm3 MPV 11.3 H (7.4-10.4) fl Immature Gran % (Auto) 0.7 H (0-0.5) % Neut % (Auto) 80.2 H (45.5-73.1) % Lymph % (Auto) 10.0 L (18.3-44.2) % [place] % (Auto) 8.0 (2.6-8.5) % Eos % (Auto) 0.5 (0-4.4) % Baso % (Auto) 0.6 (0.2-1.2) % Lymph # (Auto) 1.28 (0.9-3.2) K/mm3 [place] # (Auto) 1.0 H (0.1-0.6) K/mm3 Eos # (Auto) 0.1 (0-0.3) K/mm3 Baso # (Auto) 0.1 (0.0-0.1) K/mm3 Abs Immat Gran (auto) 0.09 H (0.00-0.031) K/mm3 Absolute Neuts (auto) 10.3 H (1.3-6.7) K/mm3 Absolute Nucleated RBC 0.000 (0.0-0.012) K/mm3 Nucleated RBC % 0.0 (0.0-0.2) % PT 13.6 (11.1-14.7) Seconds INR 1.0 APTT 29.0 (22.3-36.8) Seconds Sodium 139 (137-145) mmol/L Potassium 5.1 H (3.4-5.0) mmol/L Chloride 102 (98-107) mmol/L Carbon Dioxide 26 (22-30) mmol/L Anion Gap 11 (4-12) mmol/L BUN 37 H (7-17) mg/dL Creatinine 1.18 H (0.7-1.0) mg/dL Estim Creat Clear Calc 31 ml/min Estimated GFR 44 L (59 - ) Glucose 127 H (65-110) mg/dL Calcium 9.2 (8.4-10.2) mg/dL Total Bilirubin 0.9 (0.2-1.3) mg/dL AST 41 H (14-36) U/L ALT 31 (6-35) U/L Alkaline Phosphatase 62 (38-126) U/L Total Protein 8.0 (6.3-8.2) g/dL Albumin 4.4 (3.5-5.1) g/dL <Rissa Harp PA-C - Last Filed: 12/16/24 03:06> Lab Results 12/15/24 Range/Units 18:14 WBC 12.8 H (4.5-10.0) K/mm3 RBC 4.29 (4.2-5.4) M/mm3 Hgb 12.0 (12.0-15.0) g/dL Hct 38.2 (37.0-47.0) % MCV 89.0 (80-100) fl MCH 28.0 (26-34) pg MCHC 31.4 L (32-36) g/dl RDW 13.5 (11.5-14.5) % Plt Count 210 (150-375) k/mm3 MPV 11.3 H (7.4-10.4) fl Immature Gran % (Auto) 0.7 H (0-0.5) % Neut % (Auto) 80.2 H (45.5-73.1) % Lymph % (Auto) 10.0 L (18.3-44.2) % [place] % (Auto) 8.0 (2.6-8.5) % Eos % (Auto) 0.5 (0-4.4) % Baso % (Auto) 0.6 (0.2-1.2) % Lymph # (Auto) 1.28 (0.9-3.2) K/mm3 [place] # (Auto) 1.0 H (0.1-0.6) K/mm3 Eos # (Auto) 0.1 (0-0.3) K/mm3 Baso # (Auto) 0.1 (0.0-0.1) K/mm3 Abs Immat Gran (auto) 0.09 H (0.00-0.031) K/mm3 Absolute Neuts (auto) 10.3 H (1.3-6.7) K/mm3 Absolute Nucleated RBC 0.000 (0.0-0.012) K/mm3 Nucleated RBC % 0.0 (0.0-0.2) % PT 13.6 (11.1-14.7) Seconds INR 1.0 APTT 29.0 (22.3-36.8) Seconds Sodium 139 (137-145) mmol/L Potassium 5.1 H (3.4-5.0) mmol/L Chloride 102 (98-107) mmol/L Carbon Dioxide 26 (22-30) mmol/L Anion Gap 11 (4-12) mmol/L BUN 37 H (7-17) mg/dL Creatinine 1.18 H (0.7-1.0) mg/dL Estim Creat Clear Calc 31 ml/min Estimated GFR 44 L (59 - ) Glucose 127 H (65-110) mg/dL Calcium 9.2 (8.4-10.2) mg/dL Total Bilirubin 0.9 (0.2-1.3) mg/dL AST 41 H (14-36) U/L ALT 31 (6-35) U/L Alkaline Phosphatase 62 (38-126) U/L Total Protein 8.0 (6.3-8.2) g/dL Albumin 4.4 (3.5-5.1) g/dL <Sol Francis MD - Last Filed: 12/15/24 20:02> Lab Results 12/15/24 Range/Units 18:14 WBC 12.8 H (4.5-10.0) K/mm3 RBC 4.29 (4.2-5.4) M/mm3 Hgb 12.0 (12.0-15.0) g/dL Hct 38.2 (37.0-47.0) % MCV 89.0 (80-100) fl MCH 28.0 (26-34) pg MCHC 31.4 L (32-36) g/dl RDW 13.5 (11.5-14.5) % Plt Count 210 (150-375) k/mm3 MPV 11.3 H (7.4-10.4) fl Immature Gran % (Auto) 0.7 H (0-0.5) % Neut % (Auto) 80.2 H (45.5-73.1) % Lymph % (Auto) 10.0 L (18.3-44.2) % [place] % (Auto) 8.0 (2.6-8.5) % Eos % (Auto) 0.5 (0-4.4) % Baso % (Auto) 0.6 (0.2-1.2) % Lymph # (Auto) 1.28 (0.9-3.2) K/mm3 [place] # (Auto) 1.0 H (0.1-0.6) K/mm3 Eos # (Auto) 0.1 (0-0.3) K/mm3 Baso # (Auto) 0.1 (0.0-0.1) K/mm3 Abs Immat Gran (auto) 0.09 H (0.00-0.031) K/mm3 Absolute Neuts (auto) 10.3 H (1.3-6.7) K/mm3 Absolute Nucleated RBC 0.000 (0.0-0.012) K/mm3 Nucleated RBC % 0.0 (0.0-0.2) % PT 13.6 (11.1-14.7) Seconds INR 1.0 APTT 29.0 (22.3-36.8) Seconds Sodium 139 (137-145) mmol/L Potassium 5.1 H (3.4-5.0) mmol/L Chloride 102 (98-107) mmol/L Carbon Dioxide 26 (22-30) mmol/L Anion Gap 11 (4-12) mmol/L BUN 37 H (7-17) mg/dL Creatinine 1.18 H (0.7-1.0) mg/dL Estim Creat Clear Calc 31 ml/min Estimated GFR 44 L (59 - ) Glucose 127 H (65-110) mg/dL Calcium 9.2 (8.4-10.2) mg/dL Total Bilirubin 0.9 (0.2-1.3) mg/dL AST 41 H (14-36) U/L ALT 31 (6-35) U/L Alkaline Phosphatase 62 (38-126) U/L Total Protein 8.0 (6.3-8.2) g/dL Albumin 4.4 (3.5-5.1) g/dL <Katelyn Bernal MD - Last Filed: 12/15/24 20:11> Imaging Data Radiologist's impression: Impressions Head CT 12/15/24 19:01 Impression: Small acute intracranial hemorrhage along the right falx, high in the convexity, as detailed above. No surrounding edema. No midline shift. These findings were discussed with Ani Harp at 7:00 PM on 12/15/[address] 12/15/24 19:09 Impression: Straightening and slight reversal of the normal curvature of the cervical spine, likely muscular in origin. Degenerative disease, without acute fracture. Left-sided pneumothorax, the extent of which will be better delineated on CT examination of the chest, performed on the same day. These findings were discussed with Ani Harp at 7:10 PM on 12/15/2024. Chest CT 12/15/24 19:14 IMPRESSION: Left-sided pneumothorax, of approximately 15-20%, as detailed above. Acute minimally displaced fractures of the left anterior lateral third through eighth ribs. These findings were discussed with Ani Harp at 7:10 PM on 12/15/2024 <Sol Francis MD - Last Filed: 12/15/24 20:02> Critical Care Time Critical Care Time Critical Care Time: Yes <Sol Francis MD - Last Filed: 12/15/24 20:02> Total Critical Care Time: 35 <Sol Francis MD - Last Filed: 12/15/24 20:02> Discharge Plan Discharge Clinical Impression: Fall, Laceration of scalp, Leukocytosis, ELEAZAR (acute kidney injury), Intracranial hemorrhage following injury, Pneumothorax, left, Multiple rib fractures, Fracture of ribs, multiple, closed <Rissa Harp PA-C - Last Filed: 12/16/24 03:06> Patient Disposition: Acute Care Hospital <Rissa Harp PA-C - Last Filed: 12/16/24 03:06> Condition: Serious <ANGELIKA Briones Last Filed: 12/16/24 03:06> Patient Language: Guyanese <Rissa Harp PA-C - Last Filed: 12/16/24 03:06> Prescriptions: No Action aspirin [Adult Low Dose Aspirin] 81 mg tablet,delayed release (DR/EC) 81 mg PO DAILY coxdmjrm-ndgwgee-qqed-lutein Tablet PO nitroglycerin 0.4 mg tablet, sublingual 0.4 mg sublingual Q5M PRN (Reason: chest pain) Rx Instructions: do not exceed 3 doses per episode omega-3 fatty acids [Fish Oil Concentrate] 1,000 mg capsule 1,000 mg PO BID alendronate 70 mg tablet See Rx Instructions .ROUTE .COMPLEX Qty: 12 3RF Dose Instruction: TAKE 1 TABLET BY MOUTH WEEKLY WITH 8 OZ OF PLAIN WATER 30 MINUTES BEFORE FIRST FOOD, DRINK OR MEDS. STAY UPRIGHT FOR 30 MINS Rx Instructions: TAKE 1 TABLET BY MOUTH WEEKLY WITH 8 OZ OF PLAIN WATER 30 MINUTES BEFORE FIRST FOOD, DRINK OR MEDS. STAY UPRIGHT FOR 30 MINS lisinopril 10 mg tablet See Rx Instructions .ROUTE .COMPLEX Qty: 180 3RF Dose Instruction: TAKE 1 TABLET BY MOUTH TWICE DAILY Rx Instructions: TAKE 1 TABLET BY MOUTH TWICE DAILY atorvastatin 20 mg tablet 20 mg PO DAILY Qty: 100 1RF sertraline 25 mg tablet See Rx Instructions .ROUTE .COMPLEX Qty: 100 6RF Dose Instruction: TAKE 2 TABLETS BY MOUTH DAILY Rx Instructions: TAKE 2 TABLETS BY MOUTH DAILY metoprolol tartrate 25 mg tablet 12.5 mg PO BID Qty: 100 2RF <Rissa Harp PA-C - Last Filed: 12/16/24 03:06> Follow-up/Referrals: Sancho Zavala MD [Primary Care Provider] - <Rissa Harp PA-C - Last Filed: 12/16/24 03:06>
--- NOTE | 2024-12-15 17:13 | PC.NURSE ---
Pt. brought back to a room by ALYSSA Alfaro via WC. Pt. alert and VSS at this time. Son in WR and provided with update.
--- OUTSIDE RECORDS SUMMARY | 2024-12-15 17:26 | XMS_ITS | Clinical Summary ---
Author Organization [facility] Address [address] [place] [id number] Care Team Providers Care Physical Ther Name Role Phone Kathleen Vázquez MD Primary Care Provider [phone] Social History Tobacco Use Types Packs/Day Years [...] age to complete this topic Care Teams Physical Ther Relationship Specialty Start Date End Date Kathleen Vázquez MD PCP - General 10/27/14
[2024-12-15] MEDS: MORPHINE SULFATE (*CRX) 4 MG/ML INJ IV PUSH (18:05)
[2024-12-15] MEDS: TETANUS,DIPHTHERIA,AC PERTUSSIS ADULT (0.5 ML) BOOSTRIX IM (18:06)
[2024-12-15 18:21] LABS: Basophils Absolute Auto 0.1 K/mm3 (0.0-0.1); Basophils Percent Auto 0.6 % (0.2-1.2); Eosinophils Absolute Auto 0.1 K/mm3 (0-0.3); Eosinophils Percent Auto 0.5 % (0-4.4); Hematocrit 38.2 % (37.0-47.0); Immature Granulocyte Absolute 0.09 K/mm3 (0.00-0.031); Immature Granulocyte Percent A 0.7 % (0-0.5); Lymphocytes Absolute Auto 1.28 K/mm3 (0.9-3.2); Mean Corpuscular HGB Conc 31.4 g/dl (32-36); Mean Platelet Volume 11.3 fl (7.4-10.4); Neutrophils Absolute Auto 10.3 K/mm3 (1.3-6.7); Neutrophils Percent Auto 80.2 % (45.5-73.1); Platelet Count Result 210 k/mm3 (150-375); Red Blood Count 4.29 M/mm3 (4.2-5.4); Red Cell Distribution Width 13.5 % (11.5-14.5); White Blood Count 12.8 K/mm3 (4.5-10.0)
[2024-12-15 18:31] LABS: Prothrombin Time 13.6 Seconds (11.1-14.7)
[2024-12-15 18:32] LABS: Alanine Aminotransferase 31 U/L (6-35); Albumin Level 4.4 g/dL (3.5-5.1); Alkaline Phosphatase 62 U/L (38-126); Anion Gap 11 mmol/L (4-12); Aspartate Amino Transferase 41 U/L (14-36); Bilirubin,Total 0.9 mg/dL (0.2-1.3); Blood Urea Nitrogen 37 mg/dL (7-17); Calcium 9.2 mg/dL (8.4-10.2); Carbon Dioxide 26 mmol/L (22-30); Chloride 102 mmol/L (98-107); Estimated CRCL calculation 31 ml/min; Estimated Glomerular Filt Rate 44; Glucose 127 mg/dL (65-110); Potassium 5.1 mmol/L (3.4-5.0); Sodium 139 mmol/L (137-145)
[2024-12-15] MEDS: SODIUM CHLORIDE 0.9% IV 500 ML 999 ML IV CONT (19:06)
[2024-12-15] MEDS: HYDROmorphone HCL INJ (*CRX) 2 MG/ML VIAL 0.5 MG IV PUSH ×2 (19:42→21:02)
[2024-12-15 20:16] VITALS: BP 119/70; RESP 26; O2SAT 99
--- NOTE | 2024-12-15 20:19 | PC.NURSE ---
This RN spoke to Zaheer SHAH from [facility] and gave nurse-nurse report for patient acceptance. Informed of ETA to this facility of 2029.
[2024-12-15 20:31] VITALS: BP 126/61; PULSE 106; RESP 18; O2SAT 99
[2024-12-15 20:46] VITALS: BP 134/77; PULSE 113; RESP 15; O2SAT 98
== END 2024-12-15 21:10 | disposition short-term general hospital (02) ==
PROVIDERS: Student in an Organized Health Care Education/Training Program; Emergency Provider Emergency Medicine; PCP Family Medicine
DX: S01.01XA Laceration without foreign body of scalp, initial encounter (principal); S22.42XA Multiple fractures of ribs, left side, initial encounter for closed fracture; J93.9 Pneumothorax, unspecified; N17.9 Acute kidney failure, unspecified; W10.9XXA Fall (on) (from) unspecified stairs and steps, initial encounter; Z79.82 Long term (current) use of aspirin; E78.2 Mixed hyperlipidemia; E55.9 Vitamin D deficiency, unspecified; N18.30 Chronic kidney disease, stage 3 unspecified; I25.2 Old myocardial infarction; I12.9 Hypertensive chronic kidney disease with stage 1 through stage 4 chronic kidney disease, or unspecified chronic kidney disease; I25.10 Atherosclerotic heart disease of native coronary artery without angina pectoris; Z87.891 Personal history of nicotine dependence; Z23 Encounter for immunization
CPT/HCPCS: 12002; 36415; 70450; 71250; 72125; 80053; 85025; 85610; 85730; 90471; 90715; 96361; 96374; 96375; 96376; 99291; J1171; J2270; J7040

== ENCOUNTER 2025-01-09 15:48 | Outpatient (CLI) | payer MEDICARE, SELFPAY ==
--- NOTE | ~2025-01-09 | XR_ITS ---
Clinical Indication: Atrial fibrillation PA and lateral views of the chest: Comparison: 10/18/2022 Findings: The lungs are clear, without evidence of focal consolidation or pleural effusion. Cardiome diastinal silhouette is stable, status post aortic valve replacement. Bones and soft tissues are unre markable. Impression: Clear lungs. Reviewed, dictated and finalized at location M. Impression: Clear lungs.
== END 2025-01-09 15:49 | disposition home or self-care (01) ==
LOC: MICIMG 15:50
PROVIDERS: PCP Family Medicine; Visit Provider Physician Assistant
DX: I48.91 Unspecified atrial fibrillation (principal)
CPT/HCPCS: 71046

== ENCOUNTER 2025-03-03 16:50 | Inpatient (IN) | payer MEDICARE, SELFPAY ==
[2025-03-03] VITALS (9 sets, daily range): BP systolic 94–138; BP diastolic 56–81; PULSE 92–166; RESP 18–33; TEMP 36.9–37.2; O2SAT 96–98; BMI 28.1
--- NOTE | ~2025-03-03 | XR_ITS ---
CHEST RADIOGRAPH CLINICAL HISTORY: cough, shortness of breath . COMPARISON: 01/09/2025 TECHNIQUE: Single portable view of the chest. FINDINGS Sternal wires and mediastinal clips are identified, the wires are midline and intact. The remainder of the cardiomediastinal silhouette is otherwise unremarkable. Left-sided pleural thickening, unchanged from previous examination and likely secondary to prior rib fractures with subsequent left-sided pneumothorax (in November 2024). Interstitial thickening detected bilaterally, unchanged from prior. The remainder of the lungs are clear. IMPRESSION: No focal infiltrate or effusion. Reviewed, dictated and finalized at location A.
--- OUTSIDE RECORDS SUMMARY | 2025-03-03 16:54 | XMS_ITS | Clinical Summary ---
Author Organization [facility] [address] Address [address] [place] [address] Care Team Providers Care Airline Pilot/First Officer Name Role Phone Sancho Zavala MD Primary Care Provider Allergies No known active allergies Medications multivit-minera h-godf-kbixim (CENTRUM SILVER ULTRA WOMEN'S) tablet 0 0 [...] Active Additional Information Patient not taking.Reported on 01/14/2025 metoprolol (LOPRESSOR) 25 mg tablet take 1/2 tablet by oral route 2 times every day 0 0 5 Active Additional Information Patient taking differently: (No dose reported), Take 0.5 tablet in the morning and 1 tablet at night, Reported on 01/14/2025 atorvastatin (LIPITOR) 20 mg tablet Take 1 tablet (20 mg total) by mouth daily. 90 tablet 2 7 Active calcium-vits T2-P-Z9-mineral s 166.75 mg- 166.75 unit capsule Take [...] down for the next 30 min. 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 Bicuspid aortic valve 03/13/2017 S/P aortic valve replacement with bioprosthetic valve 03/13/2017 Chronic fatigue 03/13/2017 Coronary artery disease invo lving [place] coronary artery of [place] heart without angina pectoris 03/13/2017 History of [...] Encounters Date Type Department Care Team Description 01/30/2025 9:00 AM CDT Office Visit [facility] Cardiology [address] [facility] [address] [place] [phone] Shaun Benton MD S/P aortic valve replacement with bioprosthetic valve (Primary Dx); History of coronary artery bypass surgery; Persistent atrial fibrillation (HCC) 01/23/2025 2:00 PM CDT Ancillary Procedure [facility] Cardiology at [address] [place] [phone] Persistent atrial fibrillation (HCC) 01/16/2025 Anticoagulation Visit [facility] Cardiology at [address] [place] [address] Iona Bryan RN Atrial fibrillation, unspecified type (HCC) (Primary Dx) 01/15/2025 Telephone [facility] Cardiology [address] [facility] [address] [place] [address] Shaun Benton MD 01/14/2025 2:00 PM CDT Ancillary Procedure [facility] Cardiology at [address] [place] [address] 01/14/2025 1:30 PM CDT Office Visit [facility] Cardiology at [address] [place] [phone] Shaun Benton MD S/P aortic valve replacement with bioprosthetic valve (Primary Dx); History of coronary artery bypass surgery; Persistent atrial fibrillation (HCC); Other thrombophilia (HCC) 01/13/2025 Telephone [facility] Cardiology [address] [place] [address] Shaun Benton MD from Last 3 Months Medical History Medical History Date Comments Hx Other Medical hypertension, a ortic stenosis, eczema, obesity, hi; Comments: [facility] 08/28/2014 - Hx Other Medical CAD; Comments: [facility] 09/25/2014 - Family History Medical History [...] on file Legal Sex Female 2:01 AM TICKET TAKER Gender Identity Not on file Sexual Orientation Not on file Obstetrics History Last Filed Vital Signs Vital Sign Reading Time Taken Comments Blood Pressure 122/60 01/30/2025 8:59 AM CDT Pulse 59 01/30/2025 8:59 AM CDT Temperature - - Respiratory Rate 97 09/27/2024 11:06 AM TICKET TAKER Oxygen Saturation 96% 01/30/2025 8:59 AM CDT Inhaled Oxygen Concentration - - Weight 75.8 kg (167 lb 3.2 oz) 01/30/2025 8:59 A M CDT Height 162.6 cm (5' 4) 01/30/2025 8:59 AM CDT Body Mass Index 28.7 01/30/2025 8:59 AM CDT Plan of Treatment Health Maintenance Due Date Last Done Comments Albumin Creatinine Ratio, Urine 1940 Depression Screening 1940 Fall Risk Assessment 1940 Osteoporosis Screening-Bone Density Scan 1940 eGFR 1940 Dilated Eye Exam 1940 Foot Exam 1940 DTaP/Tdap/Td Vaccine (1 - Tdap) 1952 Hepatitis B Screening 1959 Pneumococcal vaccine 65+ (1 of 2 - PCV) 1960 Zoster Vaccine (1 of 2) 1991 Well Visit 65+ 2006 Lipid Panel 12/20/2022 12/20/2021, 04/30, 02/08/2019, Additional history exists Influenza Vaccine (#1) 2025 9, 05/13/2018, 05/29/2017, Additional history exists Hemoglobin A1C 06/22/2025 12/20/2024, 12/16/2024 Procedures Procedure Name Priority Date/Time Associated Diagnosis Comments TRANSTHORACIC ECHO (TTE) COMPLETE W DOPPLER/CF WO CONTRAST Routine 01/23/2025 2:24 PM CDT Persistent atrial fibrillation (HCC) HOLTER MONITOR 48 HR Routine 01/14/2025 2:26 PM CDT Persistent atrial fibrillation (HCC) POCT LIPID PANEL Routine 12/20/2021 12:4 7 PM CDT Mixed diabetic hyperlipidemia associated with type 2 diabetes mellitus (HCC) from Last 3 Months or Most Recently Relevant to Health Maintenance Results * TRANSTHORACIC ECHO (TTE) COMPLETE W DOPPLER/CF WO CONTRAST (01/23/2025 2:24 PM CDT) Estimated EF 65-70 % CONS SCIMAGE EF Mod BP 65 % CONS SCIMAGE Anatomical Region Laterality Modality Ultrasound 01/23/2025 1:58 PM CDT Narrative 01/23/2025 4:44 PM CDT [facility] Cardiology [facility] [address], [place] [address] [phone] P:[phone] Echocardiographic Report Patient Name: PATRICIO AGUIRRE A : 1940 Study Date: 01/23/2025 1:58:36 PM Gender: F Supervisor Bakery Sanitation: SAMANTHA Location: [facility] Ref Provider: SHAUN BENTON Height(Cm): 163 BSA: 1.84 Weight(Kg): 74.4 Heart Rate: 120 BP: 120 / 72 Quality: Good Order Provider: SHAUN BENTON PROCEDURES: Echocardiographic Report: Transthoracic echocardiogram with complete 2D, M-Mode, and color Doppler examination. INDICATIONS: History of Aortic Valve Replacement and I48.19 Other persistent atrial fibrillation. MEASUREMENTS: 2D/MM Value Range Doppler Value Range EF Mod BP 65 % [ 54 - 74 ] BISHNU Vmax 2.18 cm2 [ 2.00 - 4.00 ] Estimated EF 65-70 % AV Mean PG 9 mmHg LVIDd 2D 3.69 cm [ 3.80 - 5.20 ] AV Peak Blu 1.92 m/s [ 1.00 - 1.70 ] LVIDd MM 4.44 cm [ 3.80 - 5.20 ] AV Peak PG 15 mmHg LVIDs 2D 2.69 cm [ 2.20 - 3.50 ] AV VTI 35.76 cm LVIDs MM 3.34 cm [ 2.20 - 3.50 ] LVOT Diam 2.05 cm [ 1.70 - 2.10 ] LVPWd 2D 1.14 cm [ 0.60 - 0.90 ] LVOT Peak Blu 1.28 m/s [ 0.70 - 1.10 ] LVPWd MM 0.84 cm [ 0.60 - 0.90 ] LVOT VTI 22.61 cm IVSd 2D 1.00 cm [ 0.60 - 0.90 ] MV E Peak Blu 1.18 m/s [ 0.60 - 1.30 ] IVSd MM 0.92 cm [ 0.60 - 0.90 ] MV Decel Time 220 msec [ 104 - 258 ] LA Dimension MM 3.92 cm [ 2.70 - 3.80 ] PV Peak Blu 1.06 m/s [ 0.40 - 0.80 ] AoR Diam MM 3.60 cm [ 2.70 - 3.70 ] TR Peak Blu 2.65 m/s [ 1.00 - 2.80 ] LA Volume Index 38 cc/m2 [ 16 - 34 ] TR Peak PG 28 mmHg ACS MM 1.04 cm RVSP 36.00 mmHg [ 10.00 - 36.00 ] Lateral E` 0.10 m/s [ 0.10 - 0.15 ] E/E` 11 2D/MM Value Range Doppler Value Range - FINDINGS: Interpretation Site: Exam was interpreted at [facility]. Left Ventricle: Normal left ventricular size. Mild concentric left ventricular hypertrophy. Normal global left ventricular systolic function. Indeterminate diastolic function. Ejection fraction is measured at 65 %. Ejection Fraction is visually estimated to be 65-70 %. These segments of the LV are hypokinetic: basal inferior segment. These segments of the LV are akinetic: basal inferoseptum segment. Right Ventricle: Normal right ventricular systolic function. Mild enlargement of right ventricle. Left Atrium: There is severe enlargement of left atrium. Right Atrium: There is moderate enlargement of right atrium. Atrial Septum: Normal atrial septum. Mitral Valve: Mild mitral annular calcification. Mild mitral valve regurgitation. There is no hemodynamically significant mitral stenosis by Doppler. Aortic Valve: Peak Velocity of 1.92 m/s. Peak gradient of 15.0 mmHg. Mean gradient of 9.0 mmHg. Valve area of 2.2 cm2. Trace aortic valve regurgitation. Gradients normal for valve type and size. Normal appearing aortic valve bioprosthesis. Tricuspid Valve: Normal appearance of the tricuspid valve. Mild pulmonary hypertension based on right ventricular systolic pressure. Estimated peak RVSP is 36 mmHg. Mild tricuspid regurgitation. Pulmonic Valve: Normal appearance of the pulmonic valve. No pulmonic stenosis. Mild pulmonic regurgitation. Pericardium: Normal pericardium with no significant pericardial effusion. Aorta: No aortic root dilation. IVC: Normal size and normal respiratory collapse consistent with normal right atrial pressure (<5 mmHg). CONCLUSIONS: Normal left ventricular size. Mild concentric left ventricular hypertrophy. Normal global left ventricular systolic function. Indeterminate diastolic function. Ejection fraction is measured at 65 %. Ejection Fraction is visually estimated to be 65-70 %. These segments of the LV are hypokinetic: basal inferior segment. These segments of the LV are akinetic: basal inferoseptum segment. Normal right ventricular systolic function. Mild enlargement of right ventricle. There is severe enlargement of left atrium. There is moderate enlargement of right atrium. Mild mitral annular calcification. Mild mitral valve regurgitation. Peak Velocity of 1.92 m/s. Peak gradient of 15.0 mmHg. Mean gradient of 9.0 mmHg. Valve area of 2.2 cm2. Trace aortic valve regurgitation. Gradients normal for valve type and size. Normal appearing aortic valve bioprosthesis. Mild pulmonary hypertension based on right ventricular systolic pressure. Estimated peak RVSP is 36 mmHg. Mild tricuspid regurgitation. Mild pulmonic regurgitation. Atrial fibrillation with rapid ventricular response throughout the entirety of the study with heart rates between 100- 120 beats per minute. Electronically Signed By: Marvin Alvarado MD 01/23/2025 4:43:27 PM CDT Procedure Note Marvin Alvarado MD - 01/23/2025 [facility] Cardiology [address] [facility], [address], [place] [address] P:[phone] P:[phone] Echocardiographic Report Patient Name: PATRICIO AGUIRRE A : 1940 Study Date: 01/23/2025 1:58:36 PM Gender: F Supervisor Bakery Sanitation: SAMANTHA Location: [facility] Ref Provider: SHAUN BENTON Height(Cm): 163 BSA: 1.84 Weight(Kg): 74.4 Heart Rate: 120 BP: 120 / 72 Quality: Good Order Provider: SHAUN BENTON PROCEDURES: Echocardiographic Report: Transthoracic echocardiogram with complete 2D, M-Mode, and color Dopplerexamination. INDICATIONS: History of Aortic Valve Replacement and I48.19 Other persistent atrialfibrillation. MEASUREMENTS: 2D/MM Value Range Doppler ValueRange EF Mod BP 65 % [ 54 - 74 ] BISHNU Vmax 2.18cm2 [ 2.00 - 4.00 ] Estimated EF 65-70 % AV Mean PG 9mmHg LVIDd 2D 3.69 cm [ 3.80 - 5.20 ] AV Peak Blu 1.92m/s [ 1.00 - 1.70 ] LVIDd MM 4.44 cm [ 3.80 - 5.20 ] AV Peak PG 15mmHg LVIDs 2D 2.69 cm [ 2.20 - 3.50 ] AV VTI 35.76cm LVIDs MM 3.34 cm [ 2.20 - 3.50 ] LVOT Diam 2.05 cm[ 1.70 - 2.10 ] LVPWd 2D 1.14 cm [ 0.60 - 0.90 ] LVOT Peak Blu 1.28m/s [ 0.70 - 1.10 ] LVPWd MM 0.84 cm [ 0.60 - 0.90 ] LVOT VTI 22.61cm IVSd 2D 1.00 cm [ 0.60 - 0.90 ] MV E Peak Blu 1.18m/s [ 0.60 - 1.30 ] IVSd MM 0.92 cm [ 0.60 - 0.90 ] MV Decel Time 220msec [ 104 - 258 ] LA Dimension MM 3.92 cm [ 2.70 - 3.80 ] PV Peak Blu 1.06m/s [ 0.40 - 0.80 ] AoR Diam MM 3.60 cm [ 2.70 - 3.70 ] TR Peak Blu 2.65m/s [ 1.00 - 2.80 ] LA Volume Index 38 cc/m2 [ 16 - 34 ] TR Peak PG 28mmHg ACS MM 1.04 cm RVSP 36.00mmHg [ 10.00 - 36.00 ] Lateral E` 0.10 m/s [ 0.10 - 0.15 ] E/E` 11 2D/MM Value Range Doppler ValueRange - FINDINGS: Interpretation Site: Exam was interpreted at [facility]. Left Ventricle: Normal left ventricular size. Mild concentric left ventricularhypertrophy. Normal global left ventricular systolic function. Indeterminate diastolic function.Ejection fraction is measured at 65 %. Ejection Fraction is visually estimated to be 65-70%. These segments of the LV are hypokinetic: basal inferior segment. These segmentsof the LV are akinetic: basal inferoseptum segment. Right Ventricle: Normal right ventricular systolic function. Mild enlargement of rightventricle. Left Atrium: There is severe enlargement of left atrium. Right Atrium: There is moderate enlargement of right atrium. Atrial Septum: Normal atrial septum. Mitral Valve: Mild mitral annular calcification. Mild mitral valve regurgitation. Thereis no hemodynamically significant mitral stenosis by Doppler. Aortic Valve: Peak Velocity of 1.92 m/s. Peak gradient of 15.0 mmHg. Mean gradient of9.0 mmHg. Valve area of 2.2 cm2. Trace aortic valve regurgitation. Gradients normal forvalve type and size. Normal appearing aortic valve bioprosthesis. Tricuspid Valve: Normal appearance of the tricuspid valve. Mild pulmonary hypertensionbased on right ventricular systolic pressure. Estimated peak RVSP is 36 mmHg. Mildtricuspid regurgitation. Pulmonic Valve: Normal appearance of the pulmonic valve. No pulmonic stenosis. Mildpulmonic regurgitation. Pericardium: Normal pericardium with no significant pericardial effusion. Aorta: No aortic root dilation. IVC: Normal size and normal respiratory collapse consistent with normal rightatrial pressure (<5 mmHg). CONCLUSIONS: Normal left ventricular size. Mild concentric left ventricularhypertrophy. Normal global left ventricular systolic function. Indeterminate diastolic function.Ejection fraction is measured at 65 %. Ejection Fraction is visually estimated to be 65-70%. These segments of the LV are hypokinetic: basal inferior segment. These segmentsof the LV are akinetic: basal inferoseptum segment. Normal right ventricular systolic function. Mild enlargement of rightventricle. There is severe enlargement of left atrium. There is moderate enlargement of right atrium. Mild mitral annular calcification. Mild mitral valve regurgitation. Peak Velocity of 1.92 m/s. Peak gradient of 15.0 mmHg. Mean gradient of9.0 mmHg. Valve area of 2.2 cm2. Trace aortic valve regurgitation. Gradients normal forvalve type and size. Normal appearing aortic valve bioprosthesis. Mild pulmonary hypertension based on right ventricular systolic pressure.Estimated peak RVSP is 36 mmHg. Mild tricuspid regurgitation. Mild pulmonic regurgitation. Atrial fibrillation with rapid ventricular response throughout theentirety of the study with heart rates between 100- 120 beats per minute. Electronically Signed By: Marvin Alvarado MD 01/23/2025 4:43:27 PM CDT Shaun Benton MD CV ECHO PROCEDURES Final Result * 48 HR Holter Monitor (01/14/2025 2:26 PM CDT) Anatomical Region Laterality Modality Electrocardiogra phy Narrative 01/30/2025 7:01 AM CDT AMBULATORY MANAGER MARKET DEVELOPMENT REPORT Patient Name: Patricio Aguirre Date of : 1940 Requesting Physician: Chetan Date of interpretation: 01/30/25 Type of monitor : 48 hour Holter monitor Date of the study/Enrollment period: Initiated on 01/14/2025 Indication: Atrial fibrillation Quality of the study: Favorable Interpretation: Patient's basic cardiac rhythm is atrial fibrillation with controlled ventricular response the heart rate varies from a minimum of 53 to a maximum of 179. The average heart rate was 94. There were no pauses identified. There was no evidence of sinus rhythm during this study the rhythm was persistent/chronic atrial fibrillation No supraventricular arrhythmias other than AFib were identified Ventricular ectopic activity was rare single PVCs occurred at a rate of less than 1 complex per hour. There were no ventricular couplets or runs There were no symptoms during this exam Conclusions: Atrial fibrillation with overall controlled ventricular response Rare ventricular ectopic activity No evidence of sinus rhythm No symptoms Voice recognition software was used to complete this document, therefore, sewing machine operator variances may occur. Shaun Benton MD [facility] 01/30/25 Shaun Benton MD CV CARDIAC SERVICES PROC EDURES Final Result * POCT lipid panel (12/20/2021 12:47 PM [...] Most Recently Relevant to Health Maintenance Insurance [facility] MEDICARE ADVANTAGE Care Teams Airline Pilot/First Officer Relationship Specialty Start Date End Date Sancho Zavala MD [address] [place] [address] PCP - General Family Medicine 01/14/25
--- OUTSIDE RECORDS SUMMARY | 2025-03-03 16:54 | XMS_ITS | Referral Summary ---
Author Organization [place] [facility] [address] [address] [place] [phone] Care Team Providers Care Active Directory Architect Name Role Phone Sancho Zavala MD Primary Care Provider Encounters Date Type Department Care Team Description 01/30/2025 9:00 AM CDT Office Visit [facility] Cardiology [address] [place] [address] [address] [place] [address] Shaun Benton MD S/P aortic valve replacement with bioprosthetic valve (Primary Dx); History of coronary artery bypass surgery; Persistent atrial fibrillation (HCC) 01/23/2025 2:00 PM CDT Ancillary Procedure [facility] Cardiology at [address] [place] [address] Persistent atrial fibrillation (HCC) 01/16/2025 Anticoagulation Visit [facility] Cardiology at [address] [place] [address] Iona Bryan RN Atrial fibrillation, unspecified type (HCC) (Primary Dx) 01/15/2025 Telephone [facility] Cardiology [address] [place] [address] [address] [place] [address] Shaun Benton MD 01/14/2025 2:00 PM CDT Ancillary Procedure [facility] Cardiology at [address] [place] [address] 01/14/2025 1:30 PM CDT Office Visit [facility] Cardiology at [address] [place] [address] Shaun Benton MD S/P aortic valve replacement with bioprosthetic valve (Primary Dx); History of coronary artery bypass surgery; Persistent atrial fibrillation (HCC); Other thrombophilia (HCC) 01/13/2025 Telephone [facility] Cardiology [address] [place] [address] Shaun Benton MD from Last 3 Months Allergies No known active allergies Medications multivit-minera i-hxcr-arifhr (CENTRUM SILVER ULTRA WOMEN'S) tablet 0 0 [...] daily. 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 Gender Identity Not on file Sexual Orientation Not on file Last Filed Vital Signs Vital Sign Reading Time Taken Comments Blood Pressure 122/60 01/30/2025 8:59 AM CDT Pulse 59 01/30/2025 8:59 AM CDT Temperature - - Respiratory Rate 97 09/27/2024 11:06 AM SOCIAL STUDIES DEPARTMENT CHAIR Oxygen Saturation 96% 01/30/2025 8:59 AM CDT Inhaled Oxygen Concentration - - Weight 75.8 kg (167 lb 3.2 oz) 01/30/2025 8:59 A M CDT Height 162.6 cm (5' 4) 01/30/2025 8:59 AM CDT Body Mass Index 28.7 01/30/2025 8:59 AM CDT Plan of Treatment Not on file Procedures [...] PM CDT Narrative 01/23/2025 4:44 PM CDT [facility] Cardiology [address], [place] [address] P:[phone] P:[phone] Echocardiographic Report Patient Name: PATRICIO AGUIRRE A : 1940 Study Date: 01/23/2025 1:58:36 PM Gender: F 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 Left Ventricle: Normal left ventricular size. Mild [...] Procedure Note Marvin Alvarado MD - 01/23/2025 [facility] Cardiology [address], [address], [place] [address] P:[phone] P:[phone] Echocardiographic Report Patient Name: PATRICIO AGUIRRE A : 1940 Study Date: 01/23/2025 1:58:36 PM Gender: F 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 Left Ventricle: Normal left ventricular size. Mild [...] Marvin Alvarado MD 01/23/2025 4:43:27 PM CDT us Shaun Benton MD CV ECHO PROCEDURES Final Result * 48 HR Holter Monitor (01/14/2025 2:26 PM CDT) Anatomical Region Laterality Modality Electrocardiogra phy Narrative 01/30/2025 7:01 AM CDT AMBULATORY FRONT DESK COORDINATOR REPORT Patient Name: Patricio Aguirre Date of [...] was used to complete this document, therefore, fender repairer variances may occur. Shaun Benton MD [facility] 01/30/25 Shaun Benton MD CV CARDIAC SERVICES PROC EDURES Final Result * POCT lipid panel (12/20/2021 12:47 PM CDT) Cholesterol, POC <100 mg/dL Comment:GLU = 140 HDL, POC 25 mg/dL Triglycerides, POC 119 mg/dL LDL Cholesterol POC 51 mg/dL Chol/HDL Ratio, POC N/A Non-HDL Cholesterol, POC N/A mg/dL Cholesterol Total, POC <100 mg/dL Capillary blood 12/20/2021 1 2:47 PM CDT us Link Yi MD POINT OF CARE TEST ORDER BEBE Final Result from Last 3 Months or Most Recently Relevant to Health Maintenance Insurance [facility] MEDICARE ADVANTAGE [facility] MEDICARE Address: [facility] [address] [place] [address] Care Teams Active Directory Architect Relationship Specialty Start Date End Date Sancho Zavala MD [address] [place] [id number] PCP - General Family Medicine 01/14/25
--- OUTSIDE RECORDS SUMMARY | 2025-03-03 16:54 | XMS_ITS | Clinical Summary ---
Author Organization [facility] Address [address] [place] [id number] Care Team Providers Care Licensed Staff Mft Name Role Phone Kathleen Vázquez MD Primary Care Provider [phone] Social History Tobacco Use Types Packs/Day Years [...] 2:54 PM CDT Height 162.6 cm (5' 4) 10/20/2014 2:54 PM CDT Body Mass Index [...] age to complete this topic Care Teams Licensed Staff Mft Relationship Specialty Start Date End Date Kathleen Vázquez MD PCP - General 10/27/14
--- OUTSIDE RECORDS SUMMARY | 2025-03-03 16:55 | XMS_ITS | Clinical Summary ---
Author Organization [facility] Address [address] [facility] [place] [address] Care Team Providers Care Civil Process Server Name Role Phone Sancho Zavala MD Primary Care Provider [phone] Source Comments [facility],non-owned Affiliates and Associated Physician Practices is amultiple site organization consisting of ambulatory clinics and hospital sitesin [place], [place], [place] and [place]. This disclosure is being madepursuant to the Care Everywhere program and may not contain all information available regarding this patient. Last updated 18.[facility] Allergies No known active allergies Medications * Be aware that medications may not be up to date on this document. Alwaysverify current medications with the patient. acetaminophen (Tylenol) 500 MG tablet Take 2 (two) tablets by mouth every 8 hours Maximum allowable Acetaminophen amount = 4 Grams (4000 mg) / 24 hours. 5 Active atorvastatin (Lipitor) 20 MG tablet Take 1 (one) tablet by mouth at bedtime 5 Active metoprolol tartrate IR (Lopressor) 25 MG tablet Take 0.5 (one-half) tablet by mouth 2 times daily 5 Active lidocaine (Lidoderm) 5 % patch Apply 1 (one) patch to skin once daily Apply patch to most painful area and remove after 12 hours. May reapply a new patch 12 hours later. 5 Active polyethylene glycol 3350 (Miralax) 17 g packetIndicati ons:Constipati on Take 17 (seventeen) g by mouth once daily Reasons: Constipation 5 Active senna-docusate (Senokot-S) 8.6-50 MG tablet Take 1 (one) tablet by mouth once daily 5 Active vitamin D3 (Cholecalcifer ol) 25 MCG (1000 UNITS) tablet Take 2 (two) tablets by mouth once daily 5 Active oxyCODONE, immediate release, (Roxicodone) 5 MG tabletIndicati ons:Acute Pain Take 1 (one) tablet by mouth every 6 hours as needed for Pain Reasons: Acute Pain 12 tablet 5 Active Active Problems Problem Noted Date Diagnosed Date Lumbar transverse process fracture 12/19/2024 Acute pain 12/19/2024 Acute blood loss anemia 12/19/2024 Lesion of bladder 12/19/2024 Scalp laceration 12/19/2024 Fall, initial encounter 12/16/2024 Closed fracture of multiple ribs of left side, initial encounter 12/16/2024 Pneumothorax, unspecified type 12/16/2024 SAH (subarachnoid hemorrhage) 12/16/2024 Encounters Date Type Department Care Team Description 01/20/2025 Telephone [facility] - General Surgery [address] [place] [phone] Isabella Ballard RN Coordination Of Care 01/17/2025 Transitional Care [facility] CARE COORDINATION [address] [place] [address] Eileen Doran RN Transitions Of Care 01/16/2025 12:00 PM CDT Clinical Support [facility] - General Surgery [address] [place] [phone] Closed fracture of multiple ribs of left side, initial encounter 01/16/2025 Travel 01/15/2025 9:57 AM CDT - 01/15/2025 11:59 PM CDT Hospital Encounter [facility] - [facility] Imaging Discharge Disposition: Home or Self Care 01/14/2025 Telephone [facility] - General Surgery [address] [place] [phone] Isabella Ballard RN Imaging 12/24/2024 Transitional Care [facility] CARE COORDINATION [address] [place] [address] Eileen Doran RN Transitions Of Care 12/16/2024 11:14 AM CDT Anesthesia Event [facility] DIAGNOSTIC RAD [address] [place] [address] Vitor Red, 12/15/2024 9:51 PM CDT - 12/21/2024 7:00 PM CDT Hospital Encounter [facility] 5S ACUTE [address] [place] [address] Adis Gillis MD Chukwuanu, Kene A, MD Behr, Christopher A, MD Trauma Discharge Disposition: Home or Self Care 12/15/2024 Travel from Last 3 Months Immunizations Immunization Administration Dates Next Due TDAP (7yrs+) 12/15/2024(Deferred: Other - giv en at OSH prior to transfer) Social History Tobacco Use Types Packs/Day Years Used Date Smoking Tobacco: Former Cigarettes Q uit: 1985 Passive Smoke Exposure: Past Smokeless Tobacco: Never Tobacco Cessation:Counseling Given: Not Answered Alcohol Use Standard Drinks/Week Comments Never 0 (1 standard drink = 0.6 oz pur e alcohol) AUDIT-C Answer Date Recorded Q1: How often do you have a drink containing alcohol? Never 12/16/2024 Q2: How many drinks containi ng alcohol do you have on a typical day when you are drinking? Patient does not drink Q3: How often do you have si x or more drinks on one occasion? Never 12/16/2024 Overall Financial Resource Strain (CARDIA) Answe r Date Recorded How hard is it for you to pa y for the very basics like food, housing, medical care, and heating? Not very hard 12/16/2024 [facility] - Occupational Stress Questionnaire Answer Date Recorded Do you feel stress - tense, restless, nervous, or anxious, or unable to sleep at night because your mind is troubled all the time - these days? Not at all 12/16/2024 Hunger Vital Sign Answer Date Recorded Within the past 12 months, y ou worried that your food would run out before you got the money to buy more. Never true 12/17/19 25 Within the past 12 months, t he food you bought just didn't last and you didn't have money to get more. Never true 12/16/2024 PRAPARE - Transportation Answer Date Re corded In the past 12 months, has l ack of transportation kept you from medical appointments or from getting medications? No 11/28 In the past 12 months, has l ack of transportation kept you from meetings, work, or from getting things needed for daily living? No 12/16/2024 Housing Stability Vital Sign Answer Yovany e Recorded In the last 12 months, was t here a time when you were not able to pay the mortgage or rent on time? No 12/16/2024 In the past 12 months, how m any times have you moved where you were living? 1 12/16/2024 At any time in the past 12 m [facility], were you homeless or living in a longterm (including now)? No 12/16/2024 Comments Unknown Sex and Gender Information Value Date Recorded Sex Assigned at Not on file Legal Sex Female 8:09 PM CDT Gender Identity Not on file Sexual Orientation Not on file Last Filed Vital Signs Vital Sign Reading Time Taken Comments Blood Pressure 127/66 01/16/2025 11:41 AM CDT Pulse 56 01/16/2025 11:41 AM CDT Temperature 36.7 C (98 F) 01/16/2025 11:41 AM CDT Respiratory Rate 18 01/16/2025 11:41 AM CDT Oxygen Saturation 97% 01/16/2025 11:41 AM CDT Inhaled Oxygen Concentration - - Weight 79.4 kg (175 lb) 01/16/2025 11:41 AM CDT Height 162.6 cm (5' 4) 01/16/2025 11:41 AM CDT Body Mass Index 30.04 01/16/2025 11:41 AM CDT Plan of Treatment Health Maintenance Due Date Last Done Comments BONE DENSITY TESTING 1941 DTAP/TDAP/TD VACCINES (1 - Tdap) 1960 PNEUMOCOCCAL VACCINE 50+ (1 of 1 - PCV) 1991 ZOSTER VACCINE (1 of 2) 1991 Respiratory Syncytial Virus (RSV) Vaccine Pt: or over 60 yrs (1 - 1-dose 75+ series) 2016 COVID-19 VACCINE ( - 2023-2 5 season) 2024 DEPRESSION SCREENING 07/31/2024 MEDICARE AWV CALENDAR YEAR 2024 INFLUENZA VACCINE (#1) 2025 HEPATITIS B VACCINE Aged Out No longe r eligible based on patient's age to complete this topic HIB VACCINE Aged Out No longer eligi ble based on patient's age to complete this topic HPV VACCINE Aged Out No longer eligi ble based on patient's age to complete this topic MENINGOCOCCAL (Group B) VACC INE SHARED DECISION-MAKING Aged Out No longer eligibl e based on patient's age to complete this topic MENINGOCOCCAL GROUPS A/C/Y/W VACCINE Aged Out No longer eligible b ased on patient's age to complete this topic Procedures Procedure Name Priority Date/Time Associated Diagnosis Comments XR CHEST OUTSIDE Routine 01/09/2025 10:4 2 AM CDT POTASSIUM BLOOD STAT 12/21/2024 5:41 PM CDT EKG 12-LEAD Routine 12/21/2024 4:56 PM CDT Fall, initial encounter XR CHEST 1VW PORTABLE Routine 12/21/2024 3:14 PM CDT Pneumothorax, unspecified type BASIC METABOLIC PANEL (CALCIUM TOTAL) Routine 12/21/2024 1:59 PM CDT GLUCOSE - POINT OF CARE Routine 12/21/2024 8:15 AM CDT XR CHEST 1VW PORTABLE Routine 12/21/2024 6:03 AM CDT Pneumothorax, unspecified type PHOSPHORUS BLOOD Routine 12/21/2024 4:07 AM CDT MAGNESIUM BLOOD Routine 12/21/2024 4:07 AM CDT BASIC METABOLIC PANEL (CALCIUM TOTAL) Routine 12/21/2024 4:07 AM CDT GLUCOSE - POINT OF CARE Routine 12/20/2024 4:44 PM CDT GLUCOSE - POINT OF CARE Routine 12/20/2024 12:08 PM CDT GLUCOSE - POINT OF CARE Routine 12/20/2024 8:19 AM CDT XR CHEST 1VW PORTABLE Routine 12/20/2024 4:59 AM CDT Pneumothorax, unspecified type HEMOGLOBIN A1C Routine 12/20/2024 3:14 AM CDT PHOSPHORUS BLOOD Routine 12/20/2024 3:14 AM CDT MAGNESIUM BLOOD Routine 12/20/2024 3:14 AM CDT BASIC METABOLIC PANEL (CALCIUM TOTAL) Routine 12/20/2024 3:14 AM CDT GLUCOSE - POINT OF CARE Routine 12/19/2024 11:17 PM CDT GLUCOSE - POINT OF CARE Routine 12/19/2024 6:45 PM CDT GLUCOSE - POINT OF CARE Routine 12/19/2024 11:45 AM CDT GLUCOSE - POINT OF CARE Routine 12/19/2024 8:30 AM CDT XR CHEST 1VW PORTABLE Routine 12/19/2024 4:45 AM CDT Pneumothorax, unspecified type PHOSPHORUS BLOOD Routine 12/19/2024 3:49 AM CDT MAGNESIUM BLOOD Routine 12/19/2024 3:49 AM CDT CBC W AUTO DIFFERENTIAL Routine 12/19/2024 3:49 AM CDT CALCIUM IONIZED WHOLE BLOOD Routine 12/19/2024 3:49 AM CDT BASIC METABOLIC PANEL (CALCIUM TOTAL) Routine 12/19/2024 3:49 AM CDT GLUCOSE - POINT OF CARE Routine 12/18/2024 10:14 PM CDT GLUCOSE - POINT OF CARE Routine 12/18/2024 9:17 PM CDT GLUCOSE - POINT OF CARE Routine 12/18/2024 4:24 PM CDT GLUCOSE - POINT OF CARE Routine 12/18/2024 11:54 AM CDT GLUCOSE - POINT OF CARE Routine 12/18/2024 8:07 AM CDT PHOSPHORUS BLOOD Routine 12/18/2024 5:39 AM CDT MAGNESIUM BLOOD Routine 12/18/2024 5:39 AM CDT CBC W AUTO DIFFERENTIAL Routine 12/18/2024 5:39 AM CDT CALCIUM IONIZED WHOLE BLOOD Routine 12/18/2024 5:39 AM CDT BASIC METABOLIC PANEL (CALCIUM TOTAL) Routine 12/18/2024 5:39 AM CDT GLUCOSE - POINT OF CARE Routine 12/17/2024 7:55 PM CDT GLUCOSE - POINT OF CARE Routine 12/17/2024 6:37 PM CDT CARDIAC EKG ORDER 12/17/2024 2:0 0 PM CDT GLUCOSE - POINT OF CARE Routine 12/17/2024 11:54 AM CDT GLUCOSE - POINT OF CARE Routine 12/17/2024 8:43 AM CDT XR CHEST 1VW PORTABLE Routine 12/17/2024 4:30 AM CDT Fall, initial encounter Closed fracture of multiple ribs of left side, initial encounter Pneumothorax, unspecified type CALCIUM IONIZED WHOLE BLOOD Routine 12/17/2024 1:38 AM CDT PHOSPHORUS BLOOD Routine 12/17/2024 1:38 AM CDT MAGNESIUM BLOOD Routine 12/17/2024 1:38 AM CDT CBC W AUTO DIFFERENTIAL Routine 12/17/2024 1:38 AM CDT BASIC METABOLIC PANEL (CALCIUM TOTAL) Routine 12/17/2024 1:38 AM CDT GLUCOSE - POINT OF CARE Routine 12/16/2024 11:06 PM CDT GLUCOSE - POINT OF CARE Routine 12/16/2024 5:[address] 3D RECON W INDEPENDENT WKSN STAT 12/16/2024 1:24 PM CDT Closed fracture of multiple ribs of left side, initial encounter GLUCOSE - POINT OF CARE Routine 12/16/2024 11:55 AM CDT NEURAXIAL BLOCK Routine 12/16/2024 11:15 AM CDT GLUCOSE - POINT OF CARE Routine 12/16/2024 8:17 AM CDT CALCIUM IONIZED WHOLE BLOOD STAT 12/16/2024 7:55 AM CDT PHOSPHORUS BLOOD STAT 12/16/2024 7:55 AM CDT MAGNESIUM BLOOD STAT 12/16/2024 7:55 AM CDT BASIC METABOLIC PANEL (CALCIUM TOTAL) STAT 12/16/2024 7:55 AM CDT CBC W/O DIFFERENTIAL STAT 12/16/2024 7:[address] HEAD WO CONTRAST STAT 12/16/2024 6 :29 AM CDT Fall, initial encounter HEMOGLOBIN A1C BAILEY 12/16/2024 5:54 AM CDT URINALYSIS W/MICROSCOPIC NO CULTURE STAT 12/16/2024 5:53 AM CDT URINE DRUG SCREEN IMMUNOASSAY STAT 12/16/2024 5:53 AM CDT XR CHEST 1VW PORTABLE Routine 12/16/2024 4:19 AM CDT Fall, initial encounter GLUCOSE - POINT OF CARE Routine 12/16/2024 4:14 AM CDT GLUCOSE - POINT OF CARE Routine 12/16/2024 3:51 AM CDT EKG 12-LEAD STAT 12/15/2024 11:24 PM CDT Fall, initial encounter BLOOD TYPE VERIFICATION STAT 12/15/2024 11:[address] LUMBAR SPINE WO CONTRAST STAT 12/15/2024 11:07 PM CDT Fall, initial encounter CT THORACIC SPINE WO CONTRAST STAT 12/15/2024 11:07 PM CDT Fall, initial encounter CT CHEST ABDOMEN PELVIS W CONT STAT 12/15/2024 11:07 PM CDT Fall, initial encounter CT CERVICAL SPINE WO CONTRAST STAT 12/15/2024 11:07 PM CDT Fall, initial encounter CT FACIAL BONES WO CONTRAST STAT 12/15/2024 11:07 PM CDT Fall, initial encounter CT HEAD WO CONTRAST STAT 12/15/2024 1 1:07 PM CDT Fall, initial encounter XR CHEST 1VW PORTABLE STAT 12/15/2024 10:39 PM CDT Fall, initial encounter XR PELVIS 1 OR 2VW STAT 12/15/2024 10 :08 PM CDT Fall, initial encounter XR CHEST 1VW PORTABLE STAT 12/15/2024 10:08 PM CDT Fall, initial encounter TYPE + SCREEN PANEL STAT 12/15/2024 1 0:06 PM CDT TEG 6S PLATELET MAPPING STAT 12/15/2024 10:06 PM CDT TEG 6 GLOBAL HEMOSTASIS W/ LYSIS STAT 12/15/2024 10:06 PM CDT PT-INR [facility] STAT 12/15/2024 10:06 PM CDT CBC W AUTO DIFFERENTIAL STAT 12/15/2024 10:06 PM CDT BASIC METABOLIC PANEL (CALCIUM TOTAL) STAT 12/15/2024 10:06 PM CDT ALCOHOL ETHYL BLOOD STAT 12/15/2024 1 0:06 PM CDT from Last 3 Months Results * XR Chest Outside (01/09/2025 10:42 AM CDT) Narrative [facility] RADIOLOGY - 02/11/2025 10:42 AM CDT This is a study from an outside facility that has been uploaded into PACS. us Provider [employer] IMAGING Final Result [facility] RADIOLOGY * POTASSIUM BLOOD (12/21/2024 5:41 PM CDT) Potassium 4.5 3.5 - 4.5 mmol/L 12/21/2024 6:18 PM CDT [facility] Blood BLOOD SPECIMEN / Unknown Venipuncture / Unknown 12/21/2024 5:41 PM CDT 12/21/2024 5:58 PM CDT us Avani Smith PA-C LAB - CHEMISTRY ORDERABLES Fin al Result Performing Organization Address City/[facility]/ZIP Co de Phone Number [facility] [place] [address] [place] [address], [facility] [phone] * EKG 12-LEAD (12/21/2024 4:56 PM CDT) Only the most recent of2 resultswithin the time period is included. Ventricular Rate 111 BPM [facility] MUSE QRS Duration ms 78 ms [facility] MUSE Q-T Interval ms 338 ms [facility] MUSE QTC Calculation (Bezet) 459 ms [facility] MUSE Calculated R Stanley 10 degrees [facility] MUSE Calculated T Stanley -22 degrees [facility] MUSE Interpretation EKG ATRIAL FIBRILLATION WITH RAPID VENTRICULAR RESPONSE ABNORMAL ECG WHEN COMPARED WITH ECG OF 15-DEC-2024 23:24, NONSPECIFIC T WAVE ABNORMALITY, IMPROVED IN LATERAL LEADS Confirmed by JENNIFER CANAS MD ([id number]) on 12/23/2024 12:38:05 PM [facility] MUSE 12/21/2024 4:56 PM CDT 12/23/2024 12:38 PM CDT Avani Smith PA-C ECG ORDERABLES Edited Result - Final Performing Organization Address [facility] de Phone Number [facility] CHRIS * XR Chest 1Vw Portable (12/21/2024 3:14 PM CDT) Only the most recent of8 resultswithin the time period is included. Anatomical Region Laterality Modality Chest Digital Radiogra phy 12/21/2024 3:31 PM CDT Narrative 12/21/2024 6:06 PM CDT PROCEDURE: XR CHEST 1VW PORTABLE, DATE/TIME OF EXAM: 12/21/2024 3:14 PM, LOCATION [facility] INDICATION: J93.9: Pneumothorax, unspecified type ADDITIONAL CLINICAL INFORMATION: Ordering Provider Reason For Exam: S/p L chest tube pull Technologist Note: Additional: COMPARISON: Chest x-ray from 12/21/2024. FINDINGS/IMPRESSION: Median sternotomy changes, mediastinal surgical clips, prosthetic cardiac valve are unchanged. Interval removal of left thoracostomy tube. Improving small left apical pneumothorax. Trace right pleural effusion. Bibasilar atelectasis/airspace disease. Mild pulmonary edema. Cardiomediastinal silhouette is normal. Redemonstrated multiple left-sided rib fractures. > Dictated by Luis Byrd MD (resident in diagnostic radiology). Philipp Green MD have personally reviewed and interpreted this examination/study. > Interpreting Provider: Philipp Shepherd MD on 12/21/2024 6:06 PM Procedure Note Philipp Shepherd MD - 12/21/2024 PROCEDURE: XR CHEST 1VW PORTABLE, DATE/TIME OF EXAM: 12/21/2024 3:14PM, LOCATION [facility] INDICATION: J93.9: Pneumothorax, unspecified type ADDITIONAL CLINICAL INFORMATION: Ordering Provider Reason For Exam: S/p L chest tube pull Technologist Note: Additional: COMPARISON: Chest x-ray from 12/21/2024. FINDINGS/IMPRESSION: Median sternotomy changes, mediastinal surgical clips, prostheticcardiac valve are unchanged. Interval removal of left thoracostomy tube. Improving small left apical pneumothorax. Trace right pleural effusion. Bibasilar atelectasis/airspace disease. Mild pulmonary edema. Cardiomediastinal silhouette is normal. Redemonstrated multipleleft-sided rib fractures. > Dictated by Luis Byrd MD (resident in diagnostic radiology). Philipp Green MD have personally reviewed and interpreted this examination/study. > Interpreting Provider: Philipp Shepherd MD on 12/21/2024 6:06 PM Avani Smith PA-C DIAGNOSTIC IMAGING ORDERABLES Final Result * (ABNORMAL) BASIC METABOLIC PANEL (CALCIUM TOTAL) (12/21/2024 1:59 PM CDT) Only the most recent of8 resultswithin the time period is included. BUN 30(H) 7 - 26 mg/dL 12/21/2024 2:27 PM CDT [facility] Creatinine 1.01(H) 0.56 - 0.96 mg/dL 12/21/2024 2:27 PM CDT [facility] Sodium 138 136 - 145 mmol/L 12/21/2024 2:27 PM [facility] Potassium 5.1(H) 3.5 - 4.5 mmol/L 12/21/2024 2:27 PM [facility] Chloride 105 98 - 107 mmol/L 12/21/2024 2:27 PM [facility] CO2 21(L) 22 - 29 mmol/L 12/21/2024 2:27 PM [facility] Glucose 122(H) 70 - 99 mg/dL 12/21/2024 2:27 PM [facility] Calcium 9.0 8.4 - 10.2 mg/dL 12/21/2024 2:27 PM [facility] Anion Gap 12 6 - 16 12/21/2024 2:27 PM [facility] BUN/Creatinine Ratio 30(H) 7 - 23 12/21/2024 2:27 PM [facility] Osmolality Calculated 293 275 - 295 mOsm/kg 12/21/2024 2:27 PM [facility] eGFR by CKD-EPI 55(L) >=90 mL/min/1.7 3 m2 12/21/2024 2:27 PM [facility] Blood BLOOD SPECIMEN / Unknown Lab Venipuncture / Unknown 12/21/2024 1:59 PM CDT 12/21/2024 2:06 PM CDT us Avani Smith PA-C LAB - CHEMISTRY ORDERABLES Fin al Result Performing Organization Address [facility]/State/ZIP Co de Phone Number [facility] [address] [place] [phone], [facility] [phone] * (ABNORMAL) GLUCOSE - POINT OF CARE (12/21/2024 8:15 AM CDT) Only the most recent of23 resultswithin the time period is included. Glucose WB/POC 126(H) 70 - 99 mg/dL 12/21/2024 8:16 AM [facility] Specimen Type Arterial/C apillary 12/21/2024 8:16 AM [facility] Blood BLOOD SPECIMEN / Unknown 12/21/2024 8:15 AM CDT 12/21/2024 8:16 AM CDT Frank River MD LAB - POINT OF CARE ORDERA BLES Final Result Performing Organization Address City/[facility]/ZIP Co de Phone Number [address] [address], [place] [phone] * PHOSPHORUS BLOOD (12/21/2024 4:07 AM CDT) Only the most recent of6 resultswithin the time period is included. Phosphorus 4.9 2.9 - 5.1 mg/dL 12/21/2024 5:00 AM CDT [facility] Blood BLOOD SPECIMEN / Unknown Lab Venipuncture / Unknown 12/21/2024 4:07 AM CDT 12/21/2024 4:24 AM CDT Frank River MD LAB - CHEMISTRY ORDERABLES Final Result Performing Organization Address [facility] Co de Phone Number [address] [address], [place] [phone] * MAGNESIUM BLOOD (12/21/2024 4:07 AM CDT) Only the most recent of6 resultswithin the time period is included. Magnesium 1.9 1.6 - 2.6 mg/dL 12/21/2024 5:00 AM CDT [facility] Blood BLOOD SPECIMEN / Unknown Lab Venipuncture / Unknown 12/21/2024 4:07 AM CDT 12/21/2024 4:24 AM CDT Frank River MD LAB - CHEMISTRY ORDERABLES Final Result Performing Organization Address City/[facility]/ZIP Co de Phone Number [address] [address], [place] [phone] * (ABNORMAL) HEMOGLOBIN A1C (12/20/2024 3:14 AM CDT) Only the most recent of2 resultswithin the time period is included. Hemoglobin A1c 5.9(H) <=5.6 % 12/20/2024 11:23 AM [facility] Estimated Average Glucose 123 mg/dL 12/20/2024 11:23 AM T [facility] Comment: HbA1c Interpretation: Normal : < 5.7% Pre-diabetes: 5.7-6.4% Diabetes: Equal to or greater than 6.5% Test results diagnostic of diabetes should be repeated for confirmation. Treatment target values recommended by ADA and other clinical organizations should be used to evaluate metabolic control in patients. Reference: [place] [employer], Standards of Care in Diabetes -2020 In patients 70 years and older consider HbA1c target range of 7.0-7.5% (Reference: José Miguel Durand et al. JAMDA. 2012) The Sebia assay for the measurement of HbA1c is a National Glycohemoglobin Standardization Program (NGSP) certified method. Blood BLOOD SPECIMEN / Unknown Lab Venipuncture / Unknown 12/20/2024 3:14 AM CDT 12/20/2024 4:46 AM CDT Andra Santillan APRN-SOIL CONSERVATIONIST LAB - CHEMISTRY ORDERABL ES Final Result [facility] [address] [address], [facility] [phone] * (ABNORMAL) CALCIUM IONIZED WHOLE BLOOD (12/19/2024 3:49 AM CDT) Only the most recent of4 resultswithin the time period is included. Calcium Ionized 1.20 mmol/L 12/19/2024 3:58 AM [facility] pH 7.36 7.35 - 7.45 pH 12/19/2024 3:58 AM T [facility] Ionized Calcium pH Adjusted 1.18(L) 1.19 - 1.34 mmol/L 12/19/2024 3:58 AM T [facility] Blood BLOOD SPECIMEN / Unknown Lab Venipuncture / Unknown 12/19/2024 3:49 AM CDT 12/19/2024 3:53 AM CDT us Frank River MD LAB - CHEMISTRY ORDERABLES Final Result [facility] [address] [place] [address], [facility] [phone] * (ABNORMAL) CBC W AUTO DIFFERENTIAL (12/19/2024 3:49 AM CDT) Only the most recent of4 resultswithin the time period is included. WBC 8.5 4.0 - 10.7 x10E9/L 12/19/2024 4:06 AM [facility] RBC Count 3.70(L) 3.90 - 5.20 x10E12/L 12/19/2024 4:06 AM [facility] Hemoglobin 10.5(L) 11.9 - 15.8 g/dL 12/19/2024 4:06 AM [facility] Hematocrit 32.0(L) 34.8 - 46.1 % 12/19/2024 4:06 AM [facility] MCV 86.5 80.0 - 98.0 fL 12/19/2024 4:06 AM [facility] MCH 28.4 26.7 - 33.6 pg 12/19/2024 4:06 AM [facility] MCHC 32.8 31.7 - 36.3 g/dL 12/19/2024 4:06 AM [facility] RDW-CV 13.6 11.3 - 14.8 % 12/19/2024 4:06 AM [facility] Platelet Count 189 150 - 420 x10E9/L 12/19/2024 4:06 AM [facility] MPV 11.6(H) 7.8 - 11.4 fL 12/19/2024 4:06 AM [facility] Neutrophil % 59.1 41.0 - 74.0 % 12/19/2024 4:06 AM [facility] Lymphocyte % 25.3 17.0 - 47.0 % 12/19/2024 4:06 AM [facility] Monocyte % 11.2(H) 3.0 - 11.0 % 12/19/2024 4:06 AM [facility] Eosinophil % 3.3 0.0 - 7.0 % 12/19/2024 4:06 AM [facility] Basophil % 0.9 0.0 - 1.6 % 12/19/2024 4:06 AM [facility] Immature Granulocytes % 0.2 0.0 - 1.0 % 12/19/2024 4:06 AM [facility] Neutrophil Absolute 5.00 1.60 - 7.50 x10E9/L 12/19/2024 4:06 AM [facility] Lymphocyte Absolute 2.14 1.00 - 4.40 x10E9/L 12/19/2024 4:06 AM [facility] Monocyte Absolute 0.95 0.15 - 1.00 x10E9/L 12/19/2024 4:06 AM [facility] [facility] Eosinophil Absolute 0.28 0.00 - 0.60 x10E9/L 12/19/2024 4:06 AM [facility] Basophil Absolute 0.08 0.00 - 0.13 x10E9/L 12/19/2024 4:06 AM [facility] Blood BLOOD SPECIMEN / Unknown Lab Venipuncture / Unknown 12/19/2024 3:49 AM CDT 12/19/2024 3:57 AM CDT us Frank River MD LAB - HEMATOLOGY ORDERABLE S Final Result Performing Organization Address [facility]/State/[facility] Co de Phone Number [address] [address], [facility] [phone] * CARDIAC EKG ORDER (12/17/2024 2:00 PM CDT) Narrative 12/17/2024 2:00 PM CDT Ordered by an unspecified provider. us Scanned Document CARDIAC SERVICES ORDERABLES Fin al Result * CT 3D Recon W Independent Wksn (12/16/2024 1:24 PM CDT) Anatomical Region Laterality Modality Computed Tomogra phy 12/16/2024 2:41 PM CDT Impressions 12/16/2024 2:42 PM CDT IMPRESSION: Three-dimensional rendering for operative planning. > Interpreting Provider: Beba Maddox MD on 12/16/2024 2:42 PM Narrative 12/16/2024 2:42 PM CDT PROCEDURE: CT 3D RECON W INDEPENDENT WKSN, DATE/TIME OF EXAM: 12/16/2024 1:24 PM, LOCATION [facility] INDICATION: S22.42XA: Closed fracture of multiple ribs of left side, initial encounter ADDITIONAL CLINICAL INFORMATION: Ordering Provider Reason For Exam: chest CT - rib fractures Technologist Note: Additional: COMPARISON: None. TECHNIQUE: Three-dimensional shaded surface rendering of the ribs was performed by a technologist on a separate three-dimensional workstation at the request of the referring physician and submitted for review. FINDINGS: The three-dimensional images confirm the findings of CT scan of the chest abdomen and pelvis obtained on the same day. Please see the report from the original study for further details. Procedure Note Beba Maddox MD - 12/16/2024 PROCEDURE: CT 3D RECON W INDEPENDENT SN, DATE/TIME OF EXAM:12/16/2024 1:24 PM, LOCATION [facility] INDICATION: S22.42XA: Closed fracture of multiple ribs of left side, initialencounter ADDITIONAL CLINICAL INFORMATION: Ordering Provider Reason For Exam: chest CT - rib fractures Technologist Note: Additional: COMPARISON: None. TECHNIQUE: Three-dimensional shaded surface rendering of the ribs was performed by a technologist on a separate three-dimensional workstationat the request of the referring physician and submitted for review. FINDINGS: The three-dimensional images confirm the findings of CT scan of thechest abdomen and pelvis obtained on the same day. Please see the report fromthe original study for further details. IMPRESSION: Three-dimensional rendering for operative planning. > Interpreting Provider: Beba Maddox MD on 52:42 PM us Frank River MD CT ORDERABLES Final Resu lt * EPIDURAL BLOCK PERF (12/16/2024 11:15 AM CDT) Narrative Vitor Red DO - 12/16/2024 11:15 AM CDT Vitor Red DO 12/16/2024 11:19 AM Neuraxial Block Note Pre-Procedure: Procedure Name: Neuraxial Block Patient Location: Inpatient Room Indications: at surgeon's request and procedure for pain Pre-Anesthetic Checklist: Patient identified, IV Checked, Risks and benefits discussed, Surgical consent verified, Monitors and equipment, Site examined, Pre-op evaluation done, Time-out performed, Informed consent obtained, Questions answered/anesthesia questions answered and Allergies reviewed Anticoagulation/ Anti-thrombosis status confirmed? Yes Supplemental O2: nasal cannula Monitors: BP, continuous pluse ox and EKG Patient Condition: awake and sedated, meaningful contact maintained throughout procedure Patient Sedated? No Procedure: Block Type: Epidural Prep: Chloraprep Sterile Field: mask, cap/hat, sterile established and sterile gloves Approach: midline Skin was localized? Yes Skin localized with: lidocaine (XYLOCAINE) 1 % injection - Infiltration 1 mL - 12/16/2024 11:00:00 AM 1 mL - 12/16/2024 11:09:00 AM Epidural Block: Is this procedure for postop pain? Yes Reason: anticipated postoperative pain Diagnosis: see diagnosis Needle Type: Tuohy Needle gauge: 18 G Needle length: 90 mm Placement Site: Other - please comment (T8) Number of Attempts: 2 Loss of Resistance: 7 saline Catheter threaded to (cm): 20 Catheter length at skin (cm): 12 CSF Aspirated from catheter: No Blood Aspirated: No Test Dose: lidocaine 1.5% with 1-200,000 epinephrine 3 mL at 12/16/2024 11:12 AM Test Dose Response: No Epidural Local Anesthetic Used? Yes Epidural Local Anesthetic: bupivacaine PF (MARCAINE PF) 0.25 % injection - Epidural 5 mL - 12/16/2024 11:17:00 AM Degree of difficulty: none Procedure Tolerance: tolerated well Sensory Level: other - please comment Position post procedure: head of bed elevated 30 degrees, supine Vital Signs: Vital signs moniitored and stable throughout. See nursing vitals flowsheet for details. Start Time: 12/16/2024 11:00 AM End Time: 12/16/2024 11:18 AM Total Time: 18 Staff: Anesthesia Provider: Vitor Red DO - performed the procedure Provider #1: Fuentes Max DO - performed the procedure Provider #2: Crystal Salcedo DO Additional Notes: The patient was seen for post-operative pain. I have seen and examined the patient with the resident and I agree with the findings and plan of care as documented by the resident. Procedure was performed for post operative pain. I was present for and supervised the entire procedure. Referring/Authorizing Physician: Aleta LO# #diagnosis# Vitor Red DO [employer] [facility] Department of Anesthesiology & Critical Care 12/16/2024 11:18 AM us Frank River MD GENERAL ANESTHESIA ORDERAB LES Final Result * (ABNORMAL) CBC W/O DIFFERENTIAL (12/16/2024 7:55 AM T) WBC 10.3 4.0 - 10.7 x10E9/L 12/16/2024 8:06 AM [facility] RBC Count 3.84(L) 3.90 - 5.20 x10E12/L 12/16/2024 8:06 AM [facility] Hemoglobin 10.8(L) 11.9 - 15.8 g/dL 12/16/2024 8:06 AM [facility] Hematocrit 32.9(L) 34.8 - 46.1 % 12/16/2024 8:06 AM [facility] MCV 85.7 80.0 - 98.0 fL 12/16/2024 8:06 AM [facility] MCH 28.1 26.7 - 33.6 pg 12/16/2024 8:06 AM [facility] MCHC 32.8 31.7 - 36.3 g/dL 12/16/2024 8:06 AM [facility] RDW-CV 13.5 11.3 - 14.8 % 12/16/2024 8:06 AM [facility] Platelet Count 172 150 - 420 x10E9/L 12/16/2024 8:06 AM [facility] MPV 11.4 7.8 - 11.4 fL 12/16/2024 8:06 AM [facility] Blood BLOOD SPECIMEN / Unknown Venipuncture / Unknown 12/16/2024 7:55 AM CDT 12/16/2024 8:00 AM CDT us Frank River MD LAB - HEMATOLOGY ORDERABLE S Final Result [facility] [address] [place] [address], [facility] [phone] * CT Head Wo Contrast (12/16/2024 6:29 AM CDT) Only the most recent of2 resultswithin the time period is included. Anatomical Region Laterality Modality Head Computed Tomogra phy 12/16/2024 6:37 AM CDT Impressions 12/16/2024 1:32 PM CDT IMPRESSION: 1.Interval slightly increased trace volume of subdural hemorrhage along the superior parasagittal falx measuring up to 4 mm. 2.No midline shift. The basal cisterns are patent. Report dictated by Paul Landry MD, (Billet Cutter). I, Ponce Segura MD have personally reviewed and interpreted this examination/study. > Interpreting Provider: Ponce Segura MD on 12/16/2024 1:32 PM Narrative 12/16/2024 1:32 PM CDT PROCEDURE: CT HEAD WO CONTRAST, DATE/TIME OF EXAM: 12/16/2024 6:29 AM, LOCATION [facility] INDICATION: W19.XXXA: Fall, initial encounter EXAMINATION: Computed tomography (CT) of the head without contrast ADDITIONAL CLINICAL INFORMATION: Ordering Provider Reason For Exam: follow up on trace SAH TECHNIQUE: CT of the head was performed without contrast according to standard protocol. CT dose reduction technique was used, including Automated Exposure Control. COMPARISON: CT head 12/15/2024 FINDINGS: Interval slightly increased trace volume of subdural hemorrhage along the superior parasagittal falx (series 5, image 40 and 41) measuring up to 4 mm. Soft tissue laceration and swelling along the left parietal scalp with associated skin nasrin. There is mild cerebral volume loss with associated ex vacuo ventricular dilatation. The basilar cisterns are patent. No mass effect or midline shift is seen. The givens-white matter differentiation is normal. Periventricular white matter hypoattenuation is indicative of chronic small vessel ischemic disease. There is vascular calcification of the carotid siphons and V4 segments of the vertebral arteries. No acute calvarial fracture is identified. Other than bilateral cataract extractions, the orbits appear normal. There is mild paranasal sinus disease. The mastoid air cells are clear. Periodontal disease. Procedure Note Ponce Segura MD - 12/16/2024 PROCEDURE: CT HEAD WO CONTRAST, DATE/TIME OF EXAM: 12/16/2024 6:29 AM, LOCATION [facility] INDICATION: [id number].XXXA: Fall, initial encounter EXAMINATION: Computed tomography (CT) of the head without contrast ADDITIONAL CLINICAL INFORMATION: Ordering Provider Reason For Exam: follow up on trace SAH TECHNIQUE: CT of the head was performed without contrast according to standard protocol. CT dose reduction technique was used, including Automated Exposure Control. COMPARISON: CT head 12/15/2024 FINDINGS: Interval slightly increased trace volume of subdural hemorrhage alongthe superior parasagittal falx (series 5, image 40 and 41) measuring up to 4 mm. Soft tissue laceration and swelling along the left parietal scalpwith associated skin nasrin. There is mild cerebral volume loss with associated ex vacuo ventricular dilatation. The basilar cisterns are patent. No mass effect or midline shift is seen. The givens-white matter differentiation is normal. Periventricular white matter hypoattenuation is indicative of chronicsmall vessel ischemic disease. There is vascular calcification of the carotid siphons and V4 segments of the vertebral arteries. No acute calvarial fracture is identified. Other than bilateral cataract extractions, the orbits appear normal. There is mild paranasal sinus disease. The mastoid air cells are clear. Periodontal disease. IMPRESSION: 1.Interval slightly increased trace volume of subdural hemorrhage alongthe superior parasagittal falx measuring up to 4 mm. 2.No midline shift. The basal cisterns are patent. Report dictated by Paul Landry MD, (Billet Cutter). IPonce MD have personally reviewed and interpreted this examination/study. > Interpreting Provider: Ponce Segura MD on 12/16/2024 1:32 PM Dante Jarquin MD CT ORDERABLES Final Result * (ABNORMAL) URINALYSIS W/MICROSCOPIC NO CULTURE (12/16/2024 5:53 AM [facility]) Color UA Yellow Yellow, Straw 12/16/2024 6:08 AM [facility] Clarity UA Clear Clear 12/16/2024 6:08 AM [facility] Glucose UA Negative Negative 12/16/2024 6:08 AM [facility] Bilirubin UA Negative Negative 12/16/2024 6:08 AM [facility] Ketone UA Negative Negative 12/16/2024 6:08 AM [facility] Specific [place] UA 1.020 1.005 - 1.030 12/16/2024 6:08 AM [facility] Blood UA 2+(A) Negative 12/16/2024 6:08 AM [facility] pH UA 5.0 5.0 - 8.0 pH 12/16/2024 6:08 AM [facility] Protein UA Negative Negative 12/16/2024 6:08 AM [facility] Urobilinogen UA Negative Negative mg/dL 12/16/2024 6:08 AM [facility] Nitrite UA Negative Negative 12/16/2024 6:08 AM [facility] Leukocyte Esterase UA Negative Negative 12/16/2024 6:08 AM [facility] RBC UA 6-10(A) 0 - 5 # /hpf 12/16/2024 6:08 AM [facility] WBC UA 0-5 0 - 5 # /hpf 12/16/2024 6:08 AM [facility] Bacteria UA None Seen None Seen 12/16/2024 6:08 AM [facility] Squamous Epithelial Cells 0-2 0 - 5 /hpf 12/16/2024 6:08 AM [facility] Urine URINE SPECIMEN OBTAINED BY SINGLE CATHETERIZATION OF URINARY BLADDER / Unknown Collection / Unknown 12/16/2024 5:53 AM CDT 12/16/2024 5:59 AM T us Frank River MD LAB - URINALYSIS ORDERABLE S Final Result [facility] [address] [place] [address], [facility] [phone] * (ABNORMAL) URINE DRUG SCREEN IMMUNOASSAY (12/16/2024 5:53 AM CDT) [facility] Amphetamines Screen Urine Negative Negative : < 1000 ng/mL 12/16/2024 6:20 AM [facility] Barbiturates Screen Urine Negative Negative : < 200 ng/mL 12/16/2024 6:20 AM [facility] Benzodiazepine Screen Urine Negative Negative : < 200 ng/mL 12/16/2024 6:20 AM [facility] Opiates Urine Positive(A) Negative : < 300 ng/mL 12/16/2024 6:20 AM [facility] Comment:Positive urine opiat e screening results should be confirmed by another generally accepted non-immunological method such as gas chromatography or mass spectrometry. Cocaine Metabolites Urine Negative Negative : < 300 ng/mL 12/16/2024 6:20 AM [facility] Phencyclidine Screen Urine Negative Negative : < 25 ng/ml 12/16/2024 6:20 AM [facility] Cannabinoids Screen Urine Negative Negative : <50 ng/mL 12/16/2024 6:20 AM [facility] Methadone Screen Urine Negative Negative : < 300 ng/mL 12/16/2024 6:20 AM [facility] Fentanyl Screen Urine Positive(A) Negative : <1.5 ng/mL 12/16/2024 6:20 AM [facility] Comment:Positive urine fenta nyl screening results should be confirmed by another generally accepted non-immunological method such as gas chromatography or mass spectrometry. Urine URINE / Unknown Collection / Unknown 12/16/2024 5:53 AM CDT 12/16/2024 6:00 AM [facility] - 12/16/2024 6:20 AM [facility] The Urine Toxicology Screening Panel does not screen for Propoxyphene, Meprobamate, Carisoprodol, Trazodone, fklg-pwz-xoybojl medications and/or volatiles (Acetone, Isopropanol, Methanol or Ethylene Glycol). Ethanol, Salicylate, Acetaminophen, Tricyclic Antidepressants and several therapeutic drugs may be individually assayed in serum or plasma specimen. Toxicology testing by the [facility] is an aid to medical diagnosis and treatment of patients. No documented chain of custody was maintained. Results are intended to be used for clinical purposes only. us Frank River MD LAB - URINE CHEMISTRY ORDE LUIZA Final Result Performing Organization Address City/[facility]/ZIP Co de Phone Number [facility] [address] [place] [address], [facility] [phone] * BLOOD TYPE VERIFICATION (12/15/2024 11:22 PM CDT) ABO Rh O POS 12/16/2024 12:01 AM CDT [facility] Blood Bank BLOOD SPECIMEN / Unknown Venipuncture / Unknown 12/15/2024 11:22 PM CDT 12/15/2024 11:27 PM CDT Adis Gillis MD LAB - BLOOD BANK ORDERA BLES Final Result Performing Organization Address [facility] Co de Phone Number [facility] [address] [place] [address], [facility] [phone] * CT CHEST ABDOMEN PELVIS W CONT - Abdomen-pelvis trauma, blunt or penetrating (12/15/2024 11:07 PM CDT) Anatomical Region Laterality Modality Chest, Abdomen, Pelvis Computed Tomography 12/15/2024 11:1 2 PM CDT Impressions 12/16/2024 4:45 AM CDT Impression: 1.Acute fractures of the left third through eighth ribs with a left-sided chest tube in place with a small left pneumothorax. 2.No acute injury in the abdomen or pelvis. 3.There is a 1.9 x 1.8 cm hyperdense lesion noted in the left posterior urinary bladder. This is indeterminate but could represent malignancy. Recommend direct visualization. 4.Small hiatal hernia. 5.Colonic diverticulosis 6.Cholelithiasis > Dictated by Artem Crowder MD, (resident in diagnostic radiology). IPonce MD have personally reviewed and interpreted this examination/study. > Interpreting Provider: Ponce Segura MD on 12/16/2024 4:45 AM Narrative 12/16/2024 4:45 AM CDT PROCEDURE: CT CHEST ABDOMEN PELVIS W CONT, DATE/TIME OF EXAM: 12/15/2024 11:09 PM, LOCATION [facility] INDICATION: [id number].XXXA: Fall, initial encounter COMPARISON: None. TECHNIQUE: CT of the chest, abdomen, and pelvis was performed after the uneventful administration of 100 mL of Isovue 370 intravenous contrast according to standard protocol. Findings: Chest: Lower Neck and Axillae: Subcentimeter hypodense nodules within the thyroid gland. Lungs: There is a small left pneumothorax with left-sided chest tube in place. No suspicious pulmonary nodules are identified. Heart and Pericardium: The cardiac chambers are normal in size. No pericardial fluid or thickening is present. Mediastinum and Jillian: Postoperative changes of median sternotomy. No mediastinal hematoma Thoracic Vasculature: The aorta and its branches are atherosclerotic. Abdomen/pelvis: Liver: Multiple subcentimeter hypoattenuating hepatic lesions are too small to characterize, but likely represent hepatic cysts. Gallbladder and Bile Ducts: Multiple gallstones are seen. No wall thickening or pericholecystic fluid. Spleen: Normal. Pancreas: Normal. Adrenals: Normal. Kidneys: There is a 2.8 cm cyst inferior pole of the right kidney. Kidneys otherwise normal Gastrointestinal: There is a small hiatal hernia. Stomach otherwise normal. Small bowel loops are within normal limits. There is sigmoid colonic diverticulosis without diverticulitis. There is no evidence of bowel obstruction. Normal appendix. Mesentery/Peritoneum/Retroperitoneum: No free intraperitoneal air. No free fluid in the abdomen or pelvis. Bladder: There is a 1.9 x 1.8 cm hyperdense lesion noted along the left posterior bladder. Reproductive Organs: The uterus is normal. Abdominal Vasculature: Extensive atherosclerotic calcification of the aorta and its branch vessels. Bones: Bone windows demonstrate no suspicious lytic or blastic lesions. Acute fractures of the left third fourth fifth sixth seventh and eighth ribs. Soft tissues: Small hematoma left chest wall, likely secondary to fractures. Subcutaneous air in the left chest wall, likely postprocedural Procedure Note Ponce Segura MD - 12/16/2024 PROCEDURE: CT CHEST ABDOMEN PELVIS W CONT, DATE/TIME OF EXAM:12/15/2024 11:09 PM, LOCATION [facility] INDICATION: [id number].XXXA: Fall, initial encounter COMPARISON: None. TECHNIQUE: CT of the chest, abdomen, and pelvis was performed after the uneventful administration of 100 mL of Isovue 370 intravenous contrast according to standard protocol. Findings: Chest: Lower Neck and Axillae: Subcentimeter hypodense nodules within the thyroid gland. Lungs: There is a small left pneumothorax with left-sided chest tube in place.No suspicious pulmonary nodules are identified. Heart and Pericardium: The cardiac chambers are normal in size. No pericardial fluid orthickening is present. Mediastinum and Jillian: Postoperative changes of median sternotomy. No mediastinal hematoma Thoracic Vasculature: The aorta and its branches are atherosclerotic. Abdomen/pelvis: Liver: Multiple subcentimeter hypoattenuating hepatic lesions are too small to characterize, but likely represent hepatic cysts. Gallbladder and Bile Ducts: Multiple gallstones are seen. No wall thickening or pericholecystic fluid. Spleen: Normal. Pancreas: Normal. Adrenals: Normal. Kidneys: There is a 2.8 cm cyst inferior pole of the right kidney. Kidneysotherwise normal Gastrointestinal: There is a small hiatal hernia. Stomach otherwise normal. Small bowelloops are within normal limits. There is sigmoid colonic diverticulosiswithout diverticulitis. There is no evidence of bowel obstruction. Normalappendix. Mesentery/Peritoneum/Retroperitoneum: No free intraperitoneal air. No free fluid in the abdomen or pelvis. Bladder: There is a 1.9 x 1.8 cm hyperdense lesion noted along the left posterior bladder. Reproductive Organs: The uterus is normal. Abdominal Vasculature: Extensive atherosclerotic calcification of the aorta and its branch vessels. Bones: Bone windows demonstrate no suspicious lytic or blastic lesions. Acute fractures of the left third fourth fifth sixth seventh and eighth ribs. Soft tissues: Small hematoma left chest wall, likely secondary to fractures.Subcutaneous air in the left chest wall, likely postprocedural Impression: 1.Acute fractures of the left third through eighth ribs with aleft-sided chest tube in place with a small left pneumothorax. 2.No acute injury in the abdomen or pelvis. 3.There is a 1.9 x 1.8 cm hyperdense lesion noted in the left posterior urinary bladder. This is indeterminate but could represent malignancy. Recommend direct visualization. 4.Small hiatal hernia. 5.Colonic diverticulosis 6.Cholelithiasis > Dictated by Artem Crowder MD, (resident in diagnostic radiology). Ponce Green MD have personally reviewed and interpreted this examination/study. > Interpreting Provider: Ponce Segura MD on 12/16/2024 4:45 AM Frank River MD CT ORDERABLES Final Resu lt * CT LUMBAR SPINE WO CONTRAST - T/L-spine trauma, Spine fracture (12/15/2024 11:07 PM CDT) Anatomical Region Laterality Modality Spine Computed Tomogra phy 12/15/2024 11:1 9 PM CDT Impressions 12/16/2024 2:16 AM CDT IMPRESSION: 1.Trace volume of extra-axial, possibly subdural hemorrhage along the superior parasagittal falx (series 4, image 12 and series 6, image 37). 2.Soft tissue laceration and swelling along the left parietal scalp with associated skin nasrin. 3.No acute facial bone fractures identified. 4.Comminuted, mildly displaced, acute fracture of the left L3 transverse process. Mildly displaced, acute fracture of the left L4 transverse process. Additional fractures are not excluded. 5.Otherwise, no evidence of visible/displaced acute fracture in the cervical, thoracic, or lumbar spine. 6.Small left pneumothorax. Left-sided chest tube. Consolidation at the left lung base, likely aspiration. Partially visualized multiple left-sided rib fractures. 7.Please refer to the concurrent, dedicated body report for findings in the chest, abdomen, and pelvis. Report dictated by Paul Landry MD, (Billet Cutter). Casey Green MD have personally reviewed and interpreted this examination/study. > Interpreting Provider: Casey Smith MD on 12/16/2024 2:16 AM Narrative 12/16/2024 2:16 AM CDT PROCEDURE: CT HEAD WO CONTRAST, CT LUMBAR SPINE WO CONTRAST, CT THORACIC SPINE WO CONTRAST, CT CERVICAL SPINE WO CONTRAST, CT FACIAL BONES WO CONTRAST, DATE/TIME OF EXAM: 12/15/2024 11:09 PM, LOCATION [facility] INDICATION: W19.XXXA: Fall, initial encounter EXAMINATION: 1. Computed tomography (CT) of the head without contrast 2. CT of the maxillofacial bones, orbits, and paranasal sinuses without contrast 3. CT of the cervical spine without contrast 4. CT of the thoracic spine without contrast 5. CT of the lumbar spine without contrast TECHNIQUE: CT of the head, cervical spine, and maxillofacial bones, orbits, and paranasal sinuses was performed without contrast according to standard protocol. Reformatted axial, sagittal, and coronal images of the thoracic and lumbar spine were obtained by the technologist from a concurrently performed body CT and sent to the workstation for review. CT dose reduction technique was used, including Automated Exposure Control. COMPARISON: No prior study is available for comparison at the time of this dictation. FINDINGS: Head: The study is limited due to motion artifact. Trace volume of extra-axial hemorrhage along the superior parasagittal falx (series 4, image 12 and series 6, image 37), possibly subdural or perhaps subarachnoid. Evaluation is however limited due to the presence of motion artifacts. Soft tissue laceration and swelling along the left parietal scalp with associated skin nasrin. There is mild cerebral volume loss with associated ex vacuo ventricular dilatation. The basilar cisterns are patent. No mass effect or midline shift is seen. The givens-white matter differentiation is obscured by motion artifact. Periventricular white matter hypoattenuation is indicative of chronic small vessel ischemic disease. There is vascular calcification of the carotid siphons and V4 segments of the vertebral arteries. No acute calvarial fracture is identified. Maxillofacial: Other than bilateral cataract extractions, the orbits appear normal. There is mild paranasal sinus disease. There are small raghu bullosa of the middle turbinates. Hypertrophy of the inferior turbinates. There are scattered dental caries, broken and missing teeth, and periapical lucencies. The hard palate, mandible, and temporomandibular joints appear normal. No acute facial bone fractures are identified. The mastoid air cells are clear. No soft tissue abnormality is identified. Cervical spine: Grade 1 anterolisthesis of C2 on C3, C3 on C4. Grade 1 retrolisthesis of C4 on C5. Mild dextrocurvature of the cervical spine. Congenital nonfusion of the posterior arch of C1. The bones are diffusely mineralized. Vertebral bodies are normal in height without evidence of acute fracture. Other than middle atlantoaxial joint osteoarthritis, the craniocervical junction appears normal. There is advanced degenerative disc disease. No high-grade central canal stenosis is seen. There are varying degrees of advanced facet osteoarthritis. There are varying degrees of advanced uncovertebral joint osteoarthritis with the same degree of neural foraminal stenosis at these levels. There is atherosclerotic calcification of the carotid bifurcations. A 7 mm hypodense nodule within the left thyroid gland. Retropharyngeal course of the bilateral common and internal carotid arteries. There is a small left apical pneumothorax. Paraseptal emphysema and apical scarring are noted. Thoracic spine: Dextroscoliosis of the thoracic spine. The bones are diffusely demineralized. Less than 20% height loss of the T1, T2, T3 lateral bodies secondary to Schmorl's nodes. Lucency along the anterior lateral osteophyte of the T12 vertebral body, (series 8, image 72), is age-indeterminate. Please correlate with point tenderness.. A subcentimeter sclerotic focus within the T5 vertebral body, likely bone island. No acute fracture seen. There is advanced degenerative disc disease with multilevel Schmorl's nodes. No central canal stenosis is seen. There are varying degrees of mild facet osteoarthritis. There are varying degrees of neural foraminal stenosis at multiple levels. Small left pneumothorax. Left-sided chest tube. Consolidation at the left lung base, likely aspiration. Partially visualized multiple left-sided rib fractures. Atherosclerotic calcifications of the aorta. Lumbar spine: Levoscoliosis of the lumbar spine secondary to degenerative changes at the level of L2-3. Chronic mild anterior wedging of L1 and L2 vertebral bodies less than 20% height loss. Comminuted, mildly displaced, acute fracture of the left L3 transverse process. Mildly displaced, acute fracture of the left L4 transverse process. Subtle lucency along the left aspect of the sacrum may represent a nondisplaced fracture or artifacts. The bones are diffusely osteopenic. There is advanced degenerative disc disease. Severe central canal stenosis at L4-5 secondary to posterior disc bulge and ligamentum flavum hypertrophy. There are varying degrees of advanced facet osteoarthritis. There are varying degrees of neural foraminal stenosis at multiple levels. There is atherosclerotic calcification of the abdominal aorta and its branch vessels. Colonic diverticulosis. A 3.4 cm simple cyst within the inferior pole of the right kidney. Brain injury guidelines: Skull fracture: No Subdural hematoma: </=4mm. Epidural hematoma: No epidural hematoma. Intraparenchymal hemorrhage: No intraparenchymal hemorrhage. Subarachnoid hemorrhage: No subarachnoid hemorrhage. Intraventricular hemorrhage: No. Midline shift: No. Procedure Note Casey Smith MD - 12/16/2024 PROCEDURE: CT HEAD WO CONTRAST, CT LUMBAR SPINE WO CONTRAST, CTTHORACIC SPINE WO CONTRAST, CT CERVICAL SPINE WO CONTRAST, CT FACIAL BONES WO CONTRAST, DATE/TIME OF EXAM: 12/15/2024 11:09 PM, LOCATION [facility] INDICATION: [id number]: Fall, initial encounter EXAMINATION: 1. Computed tomography (CT) of the head without contrast 2. CT of the maxillofacial bones, orbits, and paranasal sinuses without contrast 3. CT of the cervical spine without contrast 4. CT of the thoracic spine without contrast 5. CT of the lumbar spine without contrast TECHNIQUE: CT of the head, cervical spine, and maxillofacial bones,orbits, and paranasal sinuses was performed without contrast according tostandard protocol. Reformatted axial, sagittal, and coronal images of thethoracic and lumbar spine were obtained by the technologist from a concurrently performed body CT and sent to the workstation for review. CT dosereduction technique was used, including Automated Exposure Control. COMPARISON: No prior study is available for comparison at the time ofthis dictation. FINDINGS: Head: The study is limited due to motion artifact. Trace volume of extra-axial hemorrhage along the superior parasagittalfalx (series 4, image 12 and series 6, image 37), possibly subdural orperhaps subarachnoid. Evaluation is however limited due to the presence ofmotion artifacts. Soft tissue laceration and swelling along the left parietal scalp with associated skin nasrin. There is mild cerebral volume losswith associated ex vacuo ventricular dilatation. The basilar cisterns are patent. No mass effect or midline shift is seen. The givens-white matter differentiation is obscured by motion artifact. Periventricular white matter hypoattenuation is indicative of chronic small vessel ischemic disease. There is vascular calcification of the carotid siphons and V4 segments of the vertebral arteries. No acute calvarial fracture is identified. Maxillofacial: Other than bilateral cataract extractions, the orbits appear normal.There is mild paranasal sinus disease. There are small raghu bullosa of the middle turbinates. Hypertrophy of the inferior turbinates. There are scattered dental caries, broken and missing teeth, and periapical lucencies. The hard palate, mandible, and temporomandibular jointsappear normal. No acute facial bone fractures are identified. The mastoid air cells are clear. No soft tissue abnormality is identified. Cervical spine: Grade 1 anterolisthesis of C2 on C3, C3 on C4. Grade 1 retrolisthesis ofC4 on C5. Mild dextrocurvature of the cervical spine. 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 The bones are diffusely mineralized. Vertebral bodies are normal in height without evidence of acute fracture. Otherthan middle atlantoaxial joint osteoarthritis, the craniocervical junction appears normal. There is advanced degenerative disc disease. Nohigh-grade central canal stenosis is seen. There are varying degrees of advancedfacet osteoarthritis. There are varying degrees of advanced uncovertebraljoint osteoarthritis with the same degree of neural foraminal stenosis atthese levels. There is atherosclerotic calcification of the carotidbifurcations. A 7 mm hypodense nodule within the left thyroid gland. Retropharyngeal course of the bilateral common and internal carotid arteries. There is a small left apical pneumothorax. Paraseptal emphysema and apical scarring are noted. Thoracic spine: Dextroscoliosis of the thoracic spine. The bones are diffusely demineralized. Less than 20% height loss of the T1, T2, T3 lateralbodies secondary to Schmorl's nodes. Lucency along the anterior lateralosteophyte of the T12 vertebral body, (series 8, image 72), is age-indeterminate. Please correlate with point tenderness.. A subcentimeter sclerotic focus within the T5 vertebral body, likely bone island. No acute fractureseen. There is advanced degenerative disc disease with multilevel Schmorl's nodes. No central canal stenosis is seen. There are varying degrees of mild facet osteoarthritis. There are varying degrees of neuralforaminal stenosis at multiple levels. Small left pneumothorax. Left-sided chest tube. Consolidation at the left lung base, likely aspiration. Partially visualized multiple left-sided rib fractures. Atherosclerotic calcifications of the aorta. Lumbar spine: Levoscoliosis of the lumbar spine secondary to degenerative changes atthe level of L2-3. Chronic mild anterior wedging of L1 and L2 vertebralbodies less than 20% height loss. Comminuted, mildly displaced, acute fractureof the left L3 transverse process. Mildly displaced, acute fracture of the left L4 transverse process. Subtle lucency along the left aspect of the sacrum may represent a nondisplaced fracture or artifacts. The bones are diffusely osteopenic. There is advanced degenerative disc disease.Severe central canal stenosis at L4-5 secondary to posterior disc bulge and ligamentum flavum hypertrophy. There are varying degrees of advancedfacet osteoarthritis. There are varying degrees of neural foraminal stenosisat multiple levels. There is atherosclerotic calcification of the abdominal aorta and its branch vessels. Colonic diverticulosis. A 3.4 cm simplecyst within the inferior pole of the right kidney. Brain injury guidelines: Skull fracture: No Subdural hematoma: </=4mm. Epidural hematoma: No epidural hematoma. Intraparenchymal hemorrhage: No intraparenchymal hemorrhage. Subarachnoid hemorrhage: No subarachnoid hemorrhage. Intraventricular hemorrhage: No. Midline shift: No. IMPRESSION: 1.Trace volume of extra-axial, possibly subdural hemorrhage along the superior parasagittal falx (series 4, image 12 and series 6, image 37). 2.Soft tissue laceration and swelling along the left parietal scalp with associated skin nasrin. 3.No acute facial bone fractures identified. 4.Comminuted, mildly displaced, acute fracture of the left L3 transverse process. Mildly displaced, acute fracture of the left L4 transverse process. Additional fractures are not excluded. 5.Otherwise, no evidence of visible/displaced acute fracture in the cervical, thoracic, or lumbar spine. 6.Small left pneumothorax. Left-sided chest tube. Consolidation at theleft lung base, likely aspiration. Partially visualized multiple left-sidedrib fractures. 7.Please refer to the concurrent, dedicated body report for findings inthe chest, abdomen, and pelvis. Report dictated by Paul Landry MD, (Billet Cutter). I, Casey Smith MD have personally reviewed and interpretedthis examination/study. > Interpreting Provider: Casey Smith MD on 12/16/2024 2:16 AM us [place] MD CT ORDERABLES Final Resu lt * CT THORACIC SPINE WO CONTRAST - T/L-spine trauma, spine fracture (12/15/2024 11:07 PM CDT) Anatomical Region Laterality Modality Spine Computed Tomogra phy 12/15/2024 11:1 9 PM CDT Impressions 12/16/2024 2:16 AM CDT IMPRESSION: 1.Trace volume of extra-axial, possibly subdural hemorrhage along the superior parasagittal falx (series 4, image 12 and series 6, image 37). 2.Soft tissue laceration and swelling along the left parietal scalp with associated skin nasrin. 3.No acute facial bone fractures identified. 4.Comminuted, mildly displaced, acute fracture of the left L3 transverse process. Mildly displaced, acute fracture of the left L4 transverse process. Additional fractures are not excluded. 5.Otherwise, no evidence of visible/displaced acute fracture in the cervical, thoracic, or lumbar spine. 6.Small left pneumothorax. Left-sided chest tube. Consolidation at the left lung base, likely aspiration. Partially visualized multiple left-sided rib fractures. 7.Please refer to the concurrent, dedicated body report for findings in the chest, abdomen, and pelvis. Report dictated by Paul Landyr MD, (Billet Cutter). I, Casey Smith MD have personally reviewed and interpreted this examination/study. > Interpreting Provider: Casey Smith MD on 12/16/2024 2:16 AM Narrative 12/16/2024 2:16 AM CDT PROCEDURE: CT HEAD WO CONTRAST, CT LUMBAR SPINE WO CONTRAST, CT THORACIC SPINE WO CONTRAST, CT CERVICAL SPINE WO CONTRAST, CT FACIAL BONES WO CONTRAST, DATE/TIME OF EXAM: 12/15/2024 11:09 PM, LOCATION [facility] INDICATION: [id number]: Fall, initial encounter EXAMINATION: 1. Computed tomography (CT) of the head without contrast 2. CT of the maxillofacial bones, orbits, and paranasal sinuses without contrast 3. CT of the cervical spine without contrast 4. CT of the thoracic spine without contrast 5. CT of the lumbar spine without contrast TECHNIQUE: CT of the head, cervical spine, and maxillofacial bones, orbits, and paranasal sinuses was performed without contrast according to standard protocol. Reformatted axial, sagittal, and coronal images of the thoracic and lumbar spine were obtained by the technologist from a concurrently performed body CT and sent to the workstation for review. CT dose reduction technique was used, including Automated Exposure Control. COMPARISON: No prior study is available for comparison at the time of this dictation. FINDINGS: Head: The study is limited due to motion artifact. Trace volume of extra-axial hemorrhage along the superior parasagittal falx (series 4, image 12 and series 6, image 37), possibly subdural or perhaps subarachnoid. Evaluation is however limited due to the presence of motion artifacts. Soft tissue laceration and swelling along the left parietal scalp with associated skin nasrin. There is mild cerebral volume loss with associated ex vacuo ventricular dilatation. The basilar cisterns are patent. No mass effect or midline shift is seen. The givens-white matter differentiation is obscured by motion artifact. Periventricular white matter hypoattenuation is indicative of chronic small vessel ischemic disease. There is vascular calcification of the carotid siphons and V4 segments of the vertebral arteries. No acute calvarial fracture is identified. Maxillofacial: Other than bilateral cataract extractions, the orbits appear normal. There is mild paranasal sinus disease. There are small raghu bullosa of the middle turbinates. Hypertrophy of the inferior turbinates. There are scattered dental caries, broken and missing teeth, and periapical lucencies. The hard palate, mandible, and temporomandibular joints appear normal. No acute facial bone fractures are identified. The mastoid air cells are clear. No soft tissue abnormality is identified. Cervical spine: Grade 1 anterolisthesis of C2 on C3, C3 on C4. Grade 1 retrolisthesis of C4 on C5. Mild dextrocurvature of the cervical spine. Congenital nonfusion of the posterior arch of C1. The bones are diffusely mineralized. Vertebral bodies are normal in height without evidence of acute fracture. Other than middle atlantoaxial joint osteoarthritis, the craniocervical junction appears normal. There is advanced degenerative disc disease. No high-grade central canal stenosis is seen. There are varying degrees of advanced facet osteoarthritis. There are varying degrees of advanced uncovertebral joint osteoarthritis with the same degree of neural foraminal stenosis at these levels. There is atherosclerotic calcification of the carotid bifurcations. A 7 mm hypodense nodule within the left thyroid gland. Retropharyngeal course of the bilateral common and internal carotid arteries. There is a small left apical pneumothorax. Paraseptal emphysema and apical scarring are noted. Thoracic spine: Dextroscoliosis of the thoracic spine. The bones are diffusely demineralized. Less than 20% height loss of the T1, T2, T3 lateral bodies secondary to Schmorl's nodes. Lucency along the anterior lateral osteophyte of the T12 vertebral body, (series 8, image 72), is age-indeterminate. Please correlate with point tenderness.. A subcentimeter sclerotic focus within the T5 vertebral body, likely bone island. No acute fracture seen. There is advanced degenerative disc disease with multilevel Schmorl's nodes. No central canal stenosis is seen. There are varying degrees of mild facet osteoarthritis. There are varying degrees of neural foraminal stenosis at multiple levels. Small left pneumothorax. Left-sided chest tube. Consolidation at the left lung base, likely aspiration. Partially visualized multiple left-sided rib fractures. Atherosclerotic calcifications of the aorta. Lumbar spine: Levoscoliosis of the lumbar spine secondary to degenerative changes at the level of L2-3. Chronic mild anterior wedging of L1 and L2 vertebral bodies less than 20% height loss. Comminuted, mildly displaced, acute fracture of the left L3 transverse process. Mildly displaced, acute fracture of the left L4 transverse process. Subtle lucency along the left aspect of the sacrum may represent a nondisplaced fracture or artifacts. The bones are diffusely osteopenic. There is advanced degenerative disc disease. Severe central canal stenosis at L4-5 secondary to posterior disc bulge and ligamentum flavum hypertrophy. There are varying degrees of advanced facet osteoarthritis. There are varying degrees of neural foraminal stenosis at multiple levels. There is atherosclerotic calcification of the abdominal aorta and its branch vessels. Colonic diverticulosis. A 3.4 cm simple cyst within the inferior pole of the right kidney. Brain injury guidelines: Skull fracture: No Subdural hematoma: </=4mm. Epidural hematoma: No epidural hematoma. Intraparenchymal hemorrhage: No intraparenchymal hemorrhage. Subarachnoid hemorrhage: No subarachnoid hemorrhage. Intraventricular hemorrhage: No. Midline shift: No. Procedure Note Casey Smith MD - 12/16/2024 PROCEDURE: CT HEAD WO CONTRAST, CT LUMBAR SPINE WO CONTRAST, CTTHORACIC SPINE WO CONTRAST, CT CERVICAL SPINE WO CONTRAST, CT FACIAL BONES WO CONTRAST, DATE/TIME OF EXAM: 12/15/2024 11:09 PM, LOCATION [facility] INDICATION: [id number]: Fall, initial encounter EXAMINATION: 1. Computed tomography (CT) of the head without contrast 2. CT of the maxillofacial bones, orbits, and paranasal sinuses without contrast 3. CT of the cervical spine without contrast 4. CT of the thoracic spine without contrast 5. CT of the lumbar spine without contrast TECHNIQUE: CT of the head, cervical spine, and maxillofacial bones,orbits, and paranasal sinuses was performed without contrast according tostandard protocol. Reformatted axial, sagittal, and coronal images of thethoracic and lumbar spine were obtained by the technologist from a concurrently performed body CT and sent to the workstation for review. CT dosereduction technique was used, including Automated Exposure Control. COMPARISON: No prior study is available for comparison at the time ofthis dictation. FINDINGS: Head: The study is limited due to motion artifact. Trace volume of extra-axial hemorrhage along the superior parasagittalfalx (series 4, image 12 and series 6, image 37), possibly subdural orperhaps subarachnoid. Evaluation is however limited due to the presence ofmotion artifacts. Soft tissue laceration and swelling along the left parietal scalp with associated skin nasrin. There is mild cerebral volume losswith associated ex vacuo ventricular dilatation. The basilar cisterns are patent. No mass effect or midline shift is seen. The givens-white matter differentiation is obscured by motion artifact. Periventricular white matter hypoattenuation is indicative of chronic small vessel ischemic disease. There is vascular calcification of the carotid siphons and V4 segments of the vertebral arteries. No acute calvarial fracture is identified. Maxillofacial: Other than bilateral cataract extractions, the orbits appear normal.There is mild paranasal sinus disease. There are small raghu bullosa of the middle turbinates. Hypertrophy of the inferior turbinates. There are scattered dental caries, broken and missing teeth, and periapical lucencies. The hard palate, mandible, and temporomandibular jointsappear normal. No acute facial bone fractures are identified. The mastoid air cells are clear. No soft tissue abnormality is identified. Cervical spine: Grade 1 anterolisthesis of C2 on C3, C3 on C4. Grade 1 retrolisthesis ofC4 on C5. Mild dextrocurvature of the cervical spine. 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 The bones are diffusely mineralized. Vertebral bodies are normal in height without evidence of acute fracture. Otherthan middle atlantoaxial joint osteoarthritis, the craniocervical junction appears normal. There is advanced degenerative disc disease. Nohigh-grade central canal stenosis is seen. There are varying degrees of advancedfacet osteoarthritis. There are varying degrees of advanced uncovertebraljoint osteoarthritis with the same degree of neural foraminal stenosis atthese levels. There is atherosclerotic calcification of the carotidbifurcations. A 7 mm hypodense nodule within the left thyroid gland. Retropharyngeal course of the bilateral common and internal carotid arteries. There is a small left apical pneumothorax. Paraseptal emphysema and apical scarring are noted. Thoracic spine: Dextroscoliosis of the thoracic spine. The bones are diffusely demineralized. Less than 20% height loss of the T1, T2, T3 lateralbodies secondary to Schmorl's nodes. Lucency along the anterior lateralosteophyte of the T12 vertebral body, (series 8, image 72), is age-indeterminate. Please correlate with point tenderness.. A subcentimeter sclerotic focus within the T5 vertebral body, likely bone island. No acute fractureseen. There is advanced degenerative disc disease with multilevel Schmorl's nodes. No central canal stenosis is seen. There are varying degrees of mild facet osteoarthritis. There are varying degrees of neuralforaminal stenosis at multiple levels. Small left pneumothorax. Left-sided chest tube. Consolidation at the left lung base, likely aspiration. Partially visualized multiple left-sided rib fractures. Atherosclerotic calcifications of the aorta. Lumbar spine: Levoscoliosis of the lumbar spine secondary to degenerative changes atthe level of L2-3. Chronic mild anterior wedging of L1 and L2 vertebralbodies less than 20% height loss. Comminuted, mildly displaced, acute fractureof the left L3 transverse process. Mildly displaced, acute fracture of the left L4 transverse process. Subtle lucency along the left aspect of the sacrum may represent a nondisplaced fracture or artifacts. The bones are diffusely osteopenic. There is advanced degenerative disc disease.Severe central canal stenosis at L4-5 secondary to posterior disc bulge and ligamentum flavum hypertrophy. There are varying degrees of advancedfacet osteoarthritis. There are varying degrees of neural foraminal stenosisat multiple levels. There is atherosclerotic calcification of the abdominal aorta and its branch vessels. Colonic diverticulosis. A 3.4 cm simplecyst within the inferior pole of the right kidney. Brain injury guidelines: Skull fracture: No Subdural hematoma: </=4mm. Epidural hematoma: No epidural hematoma. Intraparenchymal hemorrhage: No intraparenchymal hemorrhage. Subarachnoid hemorrhage: No subarachnoid hemorrhage. Intraventricular hemorrhage: No. Midline shift: No. IMPRESSION: 1.Trace volume of extra-axial, possibly subdural hemorrhage along the superior parasagittal falx (series 4, image 12 and series 6, image 37). 2.Soft tissue laceration and swelling along the left parietal scalp with associated skin nasrin. 3.No acute facial bone fractures identified. 4.Comminuted, mildly displaced, acute fracture of the left L3 transverse process. Mildly displaced, acute fracture of the left L4 transverse process. Additional fractures are not excluded. 5.Otherwise, no evidence of visible/displaced acute fracture in the cervical, thoracic, or lumbar spine. 6.Small left pneumothorax. Left-sided chest tube. Consolidation at theleft lung base, likely aspiration. Partially visualized multiple left-sidedrib fractures. 7.Please refer to the concurrent, dedicated body report for findings inthe chest, abdomen, and pelvis. Report dictated by Paul Landry MD, (Billet Cutter). I, Casey Smith MD have personally reviewed and interpretedthis examination/study. > Interpreting Provider: Casey Smith MD on 12/16/2024 2:16 AM [place] MD CT ORDERABLES Final Resu lt * CT CERVICAL SPINE WO CONTRAST - C-Spine Trauma, Spine fracture (12/15/2024 11:07 PM CDT) Anatomical Region Laterality Modality Spine Computed Tomogra phy 12/15/2024 11:1 9 PM CDT Impressions 12/16/2024 2:16 AM CDT IMPRESSION: 1.Trace volume of extra-axial, possibly subdural hemorrhage along the superior parasagittal falx (series 4, image 12 and series 6, image 37). 2.Soft tissue laceration and swelling along the left parietal scalp with associated skin nasrin. 3.No acute facial bone fractures identified. 4.Comminuted, mildly displaced, acute fracture of the left L3 transverse process. Mildly displaced, acute fracture of the left L4 transverse process. Additional fractures are not excluded. 5.Otherwise, no evidence of visible/displaced acute fracture in the cervical, thoracic, or lumbar spine. 6.Small left pneumothorax. Left-sided chest tube. Consolidation at the left lung base, likely aspiration. Partially visualized multiple left-sided rib fractures. 7.Please refer to the concurrent, dedicated body report for findings in the chest, abdomen, and pelvis. Report dictated by Paul Landry MD, (Billet Cutter). I, Casey Smith MD have personally reviewed and interpreted this examination/study. > Interpreting Provider: Casey Smith MD on 12/16/2024 2:16 AM Narrative 12/16/2024 2:16 AM CDT PROCEDURE: CT HEAD WO CONTRAST, CT LUMBAR SPINE WO CONTRAST, CT THORACIC SPINE WO CONTRAST, CT CERVICAL SPINE WO CONTRAST, CT FACIAL BONES WO CONTRAST, DATE/TIME OF EXAM: 12/15/2024 11:09 PM, LOCATION [facility] INDICATION: [id number]: Fall, initial encounter EXAMINATION: 1. Computed tomography (CT) of the head without contrast 2. CT of the maxillofacial bones, orbits, and paranasal sinuses without contrast 3. CT of the cervical spine without contrast 4. CT of the thoracic spine without contrast 5. CT of the lumbar spine without contrast TECHNIQUE: CT of the head, cervical spine, and maxillofacial bones, orbits, and paranasal sinuses was performed without contrast according to standard protocol. Reformatted axial, sagittal, and coronal images of the thoracic and lumbar spine were obtained by the technologist from a concurrently performed body CT and sent to the workstation for review. CT dose reduction technique was used, including Automated Exposure Control. COMPARISON: No prior study is available for comparison at the time of this dictation. FINDINGS: Head: The study is limited due to motion artifact. Trace volume of extra-axial hemorrhage along the superior parasagittal falx (series 4, image 12 and series 6, image 37), possibly subdural or perhaps subarachnoid. Evaluation is however limited due to the presence of motion artifacts. Soft tissue laceration and swelling along the left parietal scalp with associated skin nasrin. There is mild cerebral volume loss with associated ex vacuo ventricular dilatation. The basilar cisterns are patent. No mass effect or midline shift is seen. The givens-white matter differentiation is obscured by motion artifact. Periventricular white matter hypoattenuation is indicative of chronic small vessel ischemic disease. There is vascular calcification of the carotid siphons and V4 segments of the vertebral arteries. No acute calvarial fracture is identified. Maxillofacial: Other than bilateral cataract extractions, the orbits appear normal. There is mild paranasal sinus disease. There are small raghu bullosa of the middle turbinates. Hypertrophy of the inferior turbinates. There are scattered dental caries, broken and missing teeth, and periapical lucencies. The hard palate, mandible, and temporomandibular joints appear normal. No acute facial bone fractures are identified. The mastoid air cells are clear. No soft tissue abnormality is identified. Cervical spine: Grade 1 anterolisthesis of C2 on C3, C3 on C4. Grade 1 retrolisthesis of C4 on C5. Mild dextrocurvature of the cervical spine. Congenital nonfusion of the posterior arch of C1. The bones are diffusely mineralized. Vertebral bodies are normal in height without evidence of acute fracture. Other than middle atlantoaxial joint osteoarthritis, the craniocervical junction appears normal. There is advanced degenerative disc disease. No high-grade central canal stenosis is seen. There are varying degrees of advanced facet osteoarthritis. There are varying degrees of advanced uncovertebral joint osteoarthritis with the same degree of neural foraminal stenosis at these levels. There is atherosclerotic calcification of the carotid bifurcations. A 7 mm hypodense nodule within the left thyroid gland. Retropharyngeal course of the bilateral common and internal carotid arteries. There is a small left apical pneumothorax. Paraseptal emphysema and apical scarring are noted. Thoracic spine: Dextroscoliosis of the thoracic spine. The bones are diffusely demineralized. Less than 20% height loss of the T1, T2, T3 lateral bodies secondary to Schmorl's nodes. Lucency along the anterior lateral osteophyte of the T12 vertebral body, (series 8, image 72), is age-indeterminate. Please correlate with point tenderness.. A subcentimeter sclerotic focus within the T5 vertebral body, likely bone island. No acute fracture seen. There is advanced degenerative disc disease with multilevel Schmorl's nodes. No central canal stenosis is seen. There are varying degrees of mild facet osteoarthritis. There are varying degrees of neural foraminal stenosis at multiple levels. Small left pneumothorax. Left-sided chest tube. Consolidation at the left lung base, likely aspiration. Partially visualized multiple left-sided rib fractures. Atherosclerotic calcifications of the aorta. Lumbar spine: Levoscoliosis of the lumbar spine secondary to degenerative changes at the level of L2-3. Chronic mild anterior wedging of L1 and L2 vertebral bodies less than 20% height loss. Comminuted, mildly displaced, acute fracture of the left L3 transverse process. Mildly displaced, acute fracture of the left L4 transverse process. Subtle lucency along the left aspect of the sacrum may represent a nondisplaced fracture or artifacts. The bones are diffusely osteopenic. There is advanced degenerative disc disease. Severe central canal stenosis at L4-5 secondary to posterior disc bulge and ligamentum flavum hypertrophy. There are varying degrees of advanced facet osteoarthritis. There are varying degrees of neural foraminal stenosis at multiple levels. There is atherosclerotic calcification of the abdominal aorta and its branch vessels. Colonic diverticulosis. A 3.4 cm simple cyst within the inferior pole of the right kidney. Brain injury guidelines: Skull fracture: No Subdural hematoma: </=4mm. Epidural hematoma: No epidural hematoma. Intraparenchymal hemorrhage: No intraparenchymal hemorrhage. Subarachnoid hemorrhage: No subarachnoid hemorrhage. Intraventricular hemorrhage: No. Midline shift: No. Procedure Note Casey Smith MD - 12/16/2024 PROCEDURE: CT HEAD WO CONTRAST, CT LUMBAR SPINE WO CONTRAST, CTTHORACIC SPINE WO CONTRAST, CT CERVICAL SPINE WO CONTRAST, CT FACIAL BONES WO CONTRAST, DATE/TIME OF EXAM: 12/15/2024 11:09 PM, LOCATION [facility] INDICATION: [id number]: Fall, initial encounter EXAMINATION: 1. Computed tomography (CT) of the head without contrast 2. CT of the maxillofacial bones, orbits, and paranasal sinuses without contrast 3. CT of the cervical spine without contrast 4. CT of the thoracic spine without contrast 5. CT of the lumbar spine without contrast TECHNIQUE: CT of the head, cervical spine, and maxillofacial bones,orbits, and paranasal sinuses was performed without contrast according tostandard protocol. Reformatted axial, sagittal, and coronal images of thethoracic and lumbar spine were obtained by the technologist from a concurrently performed body CT and sent to the workstation for review. CT dosereduction technique was used, including Automated Exposure Control. COMPARISON: No prior study is available for comparison at the time ofthis dictation. FINDINGS: Head: The study is limited due to motion artifact. Trace volume of extra-axial hemorrhage along the superior parasagittalfalx (series 4, image 12 and series 6, image 37), possibly subdural orperhaps subarachnoid. Evaluation is however limited due to the presence ofmotion artifacts. Soft tissue laceration and swelling along the left parietal scalp with associated skin nasrin. There is mild cerebral volume losswith associated ex vacuo ventricular dilatation. The basilar cisterns are patent. No mass effect or midline shift is seen. The givens-white matter differentiation is obscured by motion artifact. Periventricular white matter hypoattenuation is indicative of chronic small vessel ischemic disease. There is vascular calcification of the carotid siphons and V4 segments of the vertebral arteries. No acute calvarial fracture is identified. Maxillofacial: Other than bilateral cataract extractions, the orbits appear normal.There is mild paranasal sinus disease. There are small raghu bullosa of the middle turbinates. Hypertrophy of the inferior turbinates. There are scattered dental caries, broken and missing teeth, and periapical lucencies. The hard palate, mandible, and temporomandibular jointsappear normal. No acute facial bone fractures are identified. The mastoid air cells are clear. No soft tissue abnormality is identified. Cervical spine: Grade 1 anterolisthesis of C2 on C3, C3 on C4. Grade 1 retrolisthesis ofC4 on C5. Mild dextrocurvature of the cervical spine. 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 The bones are diffusely mineralized. Vertebral bodies are normal in height without evidence of acute fracture. Otherthan middle atlantoaxial joint osteoarthritis, the craniocervical junction appears normal. There is advanced degenerative disc disease. Nohigh-grade central canal stenosis is seen. There are varying degrees of advancedfacet osteoarthritis. There are varying degrees of advanced uncovertebraljoint osteoarthritis with the same degree of neural foraminal stenosis atthese levels. There is atherosclerotic calcification of the carotidbifurcations. A 7 mm hypodense nodule within the left thyroid gland. Retropharyngeal course of the bilateral common and internal carotid arteries. There is a small left apical pneumothorax. Paraseptal emphysema and apical scarring are noted. Thoracic spine: Dextroscoliosis of the thoracic spine. The bones are diffusely demineralized. Less than 20% height loss of the T1, T2, T3 lateralbodies secondary to Schmorl's nodes. Lucency along the anterior lateralosteophyte of the T12 vertebral body, (series 8, image 72), is age-indeterminate. Please correlate with point tenderness.. A subcentimeter sclerotic focus within the T5 vertebral body, likely bone island. No acute fractureseen. There is advanced degenerative disc disease with multilevel Schmorl's nodes. No central canal stenosis is seen. There are varying degrees of mild facet osteoarthritis. There are varying degrees of neuralforaminal stenosis at multiple levels. Small left pneumothorax. Left-sided chest tube. Consolidation at the left lung base, likely aspiration. Partially visualized multiple left-sided rib fractures. Atherosclerotic calcifications of the aorta. Lumbar spine: Levoscoliosis of the lumbar spine secondary to degenerative changes atthe level of L2-3. Chronic mild anterior wedging of L1 and L2 vertebralbodies less than 20% height loss. Comminuted, mildly displaced, acute fractureof the left L3 transverse process. Mildly displaced, acute fracture of the left L4 transverse process. Subtle lucency along the left aspect of the sacrum may represent a nondisplaced fracture or artifacts. The bones are diffusely osteopenic. There is advanced degenerative disc disease.Severe central canal stenosis at L4-5 secondary to posterior disc bulge and ligamentum flavum hypertrophy. There are varying degrees of advancedfacet osteoarthritis. There are varying degrees of neural foraminal stenosisat multiple levels. There is atherosclerotic calcification of the abdominal aorta and its branch vessels. Colonic diverticulosis. A 3.4 cm simplecyst within the inferior pole of the right kidney. Brain injury guidelines: Skull fracture: No Subdural hematoma: </=4mm. Epidural hematoma: No epidural hematoma. Intraparenchymal hemorrhage: No intraparenchymal hemorrhage. Subarachnoid hemorrhage: No subarachnoid hemorrhage. Intraventricular hemorrhage: No. Midline shift: No. IMPRESSION: 1.Trace volume of extra-axial, possibly subdural hemorrhage along the superior parasagittal falx (series 4, image 12 and series 6, image 37). 2.Soft tissue laceration and swelling along the left parietal scalp with associated skin nasrin. 3.No acute facial bone fractures identified. 4.Comminuted, mildly displaced, acute fracture of the left L3 transverse process. Mildly displaced, acute fracture of the left L4 transverse process. Additional fractures are not excluded. 5.Otherwise, no evidence of visible/displaced acute fracture in the cervical, thoracic, or lumbar spine. 6.Small left pneumothorax. Left-sided chest tube. Consolidation at theleft lung base, likely aspiration. Partially visualized multiple left-sidedrib fractures. 7.Please refer to the concurrent, dedicated body report for findings inthe chest, abdomen, and pelvis. Report dictated by Paul Landry MD, (Billet Cutter). Casey Green MD have personally reviewed and interpretedthis examination/study. > Interpreting Provider: Casey Smith MD on 12/16/2024 2:16 AM us [place] MD CT ORDERABLES Final Resu lt * CT FACIAL BONES WO CONTRAST - Facial trauma, fx suspected, blunt (12/15/2024 11:07 PM CDT) Anatomical Region Laterality Modality Head Computed Tomogra phy 12/15/2024 11:1 9 PM CDT Impressions 12/16/2024 2:16 AM CDT IMPRESSION: 1.Trace volume of extra-axial, possibly subdural hemorrhage along the superior parasagittal falx (series 4, image 12 and series 6, image 37). 2.Soft tissue laceration and swelling along the left parietal scalp with associated skin nasrin. 3.No acute facial bone fractures identified. 4.Comminuted, mildly displaced, acute fracture of the left L3 transverse process. Mildly displaced, acute fracture of the left L4 transverse process. Additional fractures are not excluded. 5.Otherwise, no evidence of visible/displaced acute fracture in the cervical, thoracic, or lumbar spine. 6.Small left pneumothorax. Left-sided chest tube. Consolidation at the left lung base, likely aspiration. Partially visualized multiple left-sided rib fractures. 7.Please refer to the concurrent, dedicated body report for findings in the chest, abdomen, and pelvis. Report dictated by Paul Landry MD, (Billet Cutter). I, Casey Smith MD have personally reviewed and interpreted this examination/study. > Interpreting Provider: Casey Smith MD on 12/16/2024 2:16 AM Narrative 12/16/2024 2:16 AM CDT PROCEDURE: CT HEAD WO CONTRAST, CT LUMBAR SPINE WO CONTRAST, CT THORACIC SPINE WO CONTRAST, CT CERVICAL SPINE WO CONTRAST, CT FACIAL BONES WO CONTRAST, DATE/TIME OF EXAM: 12/15/2024 11:09 PM, LOCATION [facility] INDICATION: [id number]: Fall, initial encounter EXAMINATION: 1. Computed tomography (CT) of the head without contrast 2. CT of the maxillofacial bones, orbits, and paranasal sinuses without contrast 3. CT of the cervical spine without contrast 4. CT of the thoracic spine without contrast 5. CT of the lumbar spine without contrast TECHNIQUE: CT of the head, cervical spine, and maxillofacial bones, orbits, and paranasal sinuses was performed without contrast according to standard protocol. Reformatted axial, sagittal, and coronal images of the thoracic and lumbar spine were obtained by the technologist from a concurrently performed body CT and sent to the workstation for review. CT dose reduction technique was used, including Automated Exposure Control. COMPARISON: No prior study is available for comparison at the time of this dictation. FINDINGS: Head: The study is limited due to motion artifact. Trace volume of extra-axial hemorrhage along the superior parasagittal falx (series 4, image 12 and series 6, image 37), possibly subdural or perhaps subarachnoid. Evaluation is however limited due to the presence of motion artifacts. Soft tissue laceration and swelling along the left parietal scalp with associated skin nasrin. There is mild cerebral volume loss with associated ex vacuo ventricular dilatation. The basilar cisterns are patent. No mass effect or midline shift is seen. The givens-white matter differentiation is obscured by motion artifact. Periventricular white matter hypoattenuation is indicative of chronic small vessel ischemic disease. There is vascular calcification of the carotid siphons and V4 segments of the vertebral arteries. No acute calvarial fracture is identified. Maxillofacial: Other than bilateral cataract extractions, the orbits appear normal. There is mild paranasal sinus disease. There are small raghu bullosa of the middle turbinates. Hypertrophy of the inferior turbinates. There are scattered dental caries, broken and missing teeth, and periapical lucencies. The hard palate, mandible, and temporomandibular joints appear normal. No acute facial bone fractures are identified. The mastoid air cells are clear. No soft tissue abnormality is identified. Cervical spine: Grade 1 anterolisthesis of C2 on C3, C3 on C4. Grade 1 retrolisthesis of C4 on C5. Mild dextrocurvature of the cervical spine. Congenital nonfusion of the posterior arch of C1. The bones are diffusely mineralized. Vertebral bodies are normal in height without evidence of acute fracture. Other than middle atlantoaxial joint osteoarthritis, the craniocervical junction appears normal. There is advanced degenerative disc disease. No high-grade central canal stenosis is seen. There are varying degrees of advanced facet osteoarthritis. There are varying degrees of advanced uncovertebral joint osteoarthritis with the same degree of neural foraminal stenosis at these levels. There is atherosclerotic calcification of the carotid bifurcations. A 7 mm hypodense nodule within the left thyroid gland. Retropharyngeal course of the bilateral common and internal carotid arteries. There is a small left apical pneumothorax. Paraseptal emphysema and apical scarring are noted. Thoracic spine: Dextroscoliosis of the thoracic spine. The bones are diffusely demineralized. Less than 20% height loss of the T1, T2, T3 lateral bodies secondary to Schmorl's nodes. Lucency along the anterior lateral osteophyte of the T12 vertebral body, (series 8, image 72), is age-indeterminate. Please correlate with point tenderness.. A subcentimeter sclerotic focus within the T5 vertebral body, likely bone island. No acute fracture seen. There is advanced degenerative disc disease with multilevel Schmorl's nodes. No central canal stenosis is seen. There are varying degrees of mild facet osteoarthritis. There are varying degrees of neural foraminal stenosis at multiple levels. Small left pneumothorax. Left-sided chest tube. Consolidation at the left lung base, likely aspiration. Partially visualized multiple left-sided rib fractures. Atherosclerotic calcifications of the aorta. Lumbar spine: Levoscoliosis of the lumbar spine secondary to degenerative changes at the level of L2-3. Chronic mild anterior wedging of L1 and L2 vertebral bodies less than 20% height loss. Comminuted, mildly displaced, acute fracture of the left L3 transverse process. Mildly displaced, acute fracture of the left L4 transverse process. Subtle lucency along the left aspect of the sacrum may represent a nondisplaced fracture or artifacts. The bones are diffusely osteopenic. There is advanced degenerative disc disease. Severe central canal stenosis at L4-5 secondary to posterior disc bulge and ligamentum flavum hypertrophy. There are varying degrees of advanced facet osteoarthritis. There are varying degrees of neural foraminal stenosis at multiple levels. There is atherosclerotic calcification of the abdominal aorta and its branch vessels. Colonic diverticulosis. A 3.4 cm simple cyst within the inferior pole of the right kidney. Brain injury guidelines: Skull fracture: No Subdural hematoma: </=4mm. Epidural hematoma: No epidural hematoma. Intraparenchymal hemorrhage: No intraparenchymal hemorrhage. Subarachnoid hemorrhage: No subarachnoid hemorrhage. Intraventricular hemorrhage: No. Midline shift: No. Procedure Note Casey Smith MD - 12/16/2024 PROCEDURE: CT HEAD WO CONTRAST, CT LUMBAR SPINE WO CONTRAST, CTTHORACIC SPINE WO CONTRAST, CT CERVICAL SPINE WO CONTRAST, CT FACIAL BONES WO CONTRAST, DATE/TIME OF EXAM: 12/15/2024 11:09 PM, LOCATION [facility] INDICATION: [id number]: Fall, initial encounter EXAMINATION: 1. Computed tomography (CT) of the head without contrast 2. CT of the maxillofacial bones, orbits, and paranasal sinuses without contrast 3. CT of the cervical spine without contrast 4. CT of the thoracic spine without contrast 5. CT of the lumbar spine without contrast TECHNIQUE: CT of the head, cervical spine, and maxillofacial bones,orbits, and paranasal sinuses was performed without contrast according tostandard protocol. Reformatted axial, sagittal, and coronal images of thethoracic and lumbar spine were obtained by the technologist from a concurrently performed body CT and sent to the workstation for review. CT dosereduction technique was used, including Automated Exposure Control. COMPARISON: No prior study is available for comparison at the time ofthis dictation. FINDINGS: Head: The study is limited due to motion artifact. Trace volume of extra-axial hemorrhage along the superior parasagittalfalx (series 4, image 12 and series 6, image 37), possibly subdural orperhaps subarachnoid. Evaluation is however limited due to the presence ofmotion artifacts. Soft tissue laceration and swelling along the left parietal scalp with associated skin nasrin. There is mild cerebral volume losswith associated ex vacuo ventricular dilatation. The basilar cisterns are patent. No mass effect or midline shift is seen. The givens-white matter differentiation is obscured by motion artifact. Periventricular white matter hypoattenuation is indicative of chronic small vessel ischemic disease. There is vascular calcification of the carotid siphons and V4 segments of the vertebral arteries. No acute calvarial fracture is identified. Maxillofacial: Other than bilateral cataract extractions, the orbits appear normal.There is mild paranasal sinus disease. There are small raghu bullosa of the middle turbinates. Hypertrophy of the inferior turbinates. There are scattered dental caries, broken and missing teeth, and periapical lucencies. The hard palate, mandible, and temporomandibular jointsappear normal. No acute facial bone fractures are identified. The mastoid air cells are clear. No soft tissue abnormality is identified. Cervical spine: Grade 1 anterolisthesis of C2 on C3, C3 on C4. Grade 1 retrolisthesis ofC4 on C5. Mild dextrocurvature of the cervical spine. 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 The bones are diffusely mineralized. Vertebral bodies are normal in height without evidence of acute fracture. Otherthan middle atlantoaxial joint osteoarthritis, the craniocervical junction appears normal. There is advanced degenerative disc disease. Nohigh-grade central canal stenosis is seen. There are varying degrees of advancedfacet osteoarthritis. There are varying degrees of advanced uncovertebraljoint osteoarthritis with the same degree of neural foraminal stenosis atthese levels. There is atherosclerotic calcification of the carotidbifurcations. A 7 mm hypodense nodule within the left thyroid gland. Retropharyngeal course of the bilateral common and internal carotid arteries. There is a small left apical pneumothorax. Paraseptal emphysema and apical scarring are noted. Thoracic spine: Dextroscoliosis of the thoracic spine. The bones are diffusely demineralized. Less than 20% height loss of the T1, T2, T3 lateralbodies secondary to Schmorl's nodes. Lucency along the anterior lateralosteophyte of the T12 vertebral body, (series 8, image 72), is age-indeterminate. Please correlate with point tenderness.. A subcentimeter sclerotic focus within the T5 vertebral body, likely bone island. No acute fractureseen. There is advanced degenerative disc disease with multilevel Schmorl's nodes. No central canal stenosis is seen. There are varying degrees of mild facet osteoarthritis. There are varying degrees of neuralforaminal stenosis at multiple levels. Small left pneumothorax. Left-sided chest tube. Consolidation at the left lung base, likely aspiration. Partially visualized multiple left-sided rib fractures. Atherosclerotic calcifications of the aorta. Lumbar spine: Levoscoliosis of the lumbar spine secondary to degenerative changes atthe level of L2-3. Chronic mild anterior wedging of L1 and L2 vertebralbodies less than 20% height loss. Comminuted, mildly displaced, acute fractureof the left L3 transverse process. Mildly displaced, acute fracture of the left L4 transverse process. Subtle lucency along the left aspect of the sacrum may represent a nondisplaced fracture or artifacts. The bones are diffusely osteopenic. There is advanced degenerative disc disease.Severe central canal stenosis at L4-5 secondary to posterior disc bulge and ligamentum flavum hypertrophy. There are varying degrees of advancedfacet osteoarthritis. There are varying degrees of neural foraminal stenosisat multiple levels. There is atherosclerotic calcification of the abdominal aorta and its branch vessels. Colonic diverticulosis. A 3.4 cm simplecyst within the inferior pole of the right kidney. Brain injury guidelines: Skull fracture: No Subdural hematoma: </=4mm. Epidural hematoma: No epidural hematoma. Intraparenchymal hemorrhage: No intraparenchymal hemorrhage. Subarachnoid hemorrhage: No subarachnoid hemorrhage. Intraventricular hemorrhage: No. Midline shift: No. IMPRESSION: 1.Trace volume of extra-axial, possibly subdural hemorrhage along the superior parasagittal falx (series 4, image 12 and series 6, image 37). 2.Soft tissue laceration and swelling along the left parietal scalp with associated skin nasrin. 3.No acute facial bone fractures identified. 4.Comminuted, mildly displaced, acute fracture of the left L3 transverse process. Mildly displaced, acute fracture of the left L4 transverse process. Additional fractures are not excluded. 5.Otherwise, no evidence of visible/displaced acute fracture in the cervical, thoracic, or lumbar spine. 6.Small left pneumothorax. Left-sided chest tube. Consolidation at theleft lung base, likely aspiration. Partially visualized multiple left-sidedrib fractures. 7.Please refer to the concurrent, dedicated body report for findings inthe chest, abdomen, and pelvis. Report dictated by Paul Landry MD, (Billet Cutter). ICasey MD have personally reviewed and interpretedthis examination/study. > Interpreting Provider: Casey Smith MD on 12/16/2024 2:16 AM us Frank River MD CT ORDERABLES Final Resu lt * XR PELVIS 1 OR 2VW (12/15/2024 10:08 PM CDT) Anatomical Region Laterality Modality Pelvis Digital Radiogra phy 12/15/2024 10:2 1 PM CDT Impressions 12/16/2024 9:36 AM CDT IMPRESSION: No acute fracture identified. Report dictated by Paul Landry MD, (Billet Cutter). Lori Green MD have personally reviewed and interpreted this examination/study. > Interpreting Provider: Lori Bernal MD on 12/16/2024 9:36 AM Narrative 12/16/2024 9:36 AM CDT PROCEDURE: XR PELVIS 1 OR 2VW, DATE/TIME OF EXAM: 12/15/2024 10:08 PM, LOCATION [facility] INDICATION: W19.XXXA: Fall, initial encounter COMPARISON: None. FINDINGS: No acute fracture is identified. Minimal bilateral hip arthritis. The femoral heads appear well-seated within their respective acetabula. Degenerative changes of the symphysis pubis. Bone density and texture are normal. The sacroiliac joints are intact. Vascular calcifications. Procedure Note Lori Bernal MD - 12/16/2024 PROCEDURE: XR PELVIS 1 OR 2VW, DATE/TIME OF EXAM: 12/15/2024 10:08 PM, LOCATION [facility] INDICATION: W19.XXXA: Fall, initial encounter COMPARISON: None. FINDINGS: No acute fracture is identified. Minimal bilateral hip arthritis. The femoral heads appear well-seated within their respective acetabula. Degenerative changes of the symphysis pubis. Bone density and textureare normal. The sacroiliac joints are intact. Vascular calcifications. IMPRESSION: No acute fracture identified. Report dictated by Paul Landry MD, (Billet Cutter). Lori Green MD have personally reviewed and interpreted this examination/study. > Interpreting Provider: Lori Bernal MD on 12/16/2024 9:36 AM us Frank River MD DIAGNOSTIC IMAGING ORDERAB LES Final Result * TEG 6 GLOBAL HEMOSTASIS W/ LYSIS (12/15/2024 10:06 PM CDT) Citrated Kaolin R (Reaction Time) 5.8 4.6 - 9.1 min 12/15/2024 11:15 PM CDT [facility] Citrated Kaolin LY30 (Lysis) 0.1 0.0 - 2.6 % 12/15/2024 11:15 PM CDT [facility] Citrated Functional Fibrinogen MA (Max Amplitude) 20.4 15.0 - 32.0 mm 12/15/2024 11:15 PM CDT [facility] Citrated RapidTEG MA (Max Amplitude) 65.2 52.0 - 70.0 mm 12/15/2024 11:15 PM CDT [facility] Blood BLOOD SPECIMEN / Unknown Venipuncture / Unknown 12/15/2024 10:06 PM CDT 12/15/2024 10:15 PM CDT us Frank River MD LAB - HEMATOLOGY ORDERABLE S Final Result [facility] [address] [place] [id number], [facility] [phone] * (ABNORMAL) TEG 6S PLATELET MAPPING (12/15/2024 10:06 PM CDT) TEGPLM (Max Amplitude) Koalin 64.7 53.0 - 68.0 mm 12/15/2024 11:05 PM CDT [facility] TEGPLM (Max Amplitude) ACTF 12.0 2.0 - 19.0 mm 12/15/2024 11:05 PM CDT [facility] TEGPLM (Max Amplitude) ADP 61.3 45.0 - 69.0 mm 12/15/2024 11:05 PM CDT [facility] TEGPLM (Max Amplitude) AA 56.0 51.0 - 71.0 mm 12/15/2024 11:05 PM [facility] TEGPLM %Inhibition ADP 6.5 0.0 - 17.0 % 12/15/2024 11:05 PM [facility] TEGPLM %Inhibition AA 16.5(H) 0.0 - 11.0 % 12/15/2024 11:05 PM [facility] TEGPLM %Aggregation ADP 93.5 83.0 - 100.0 % 12/15/2024 11:05 PM [facility] TEGPLM % Aggregation AA 83.5(L) 89.0 - 100.0 % 12/15/2024 11:05 PM [facility] Blood BLOOD SPECIMEN / Unknown Venipuncture / Unknown 12/15/2024 10:06 PM CDT 12/15/2024 10:15 PM CDT us Frank River MD LAB - HEMATOLOGY ORDERABLE S Final Result Performing Organization Address [facility] Co de Phone Number [facility] [address] [place] [address], [facility] [phone] * PT-INR [facility] (12/15/2024 10:06 PM CDT) PT 14.0 12.1 - 14.8 Seconds 12/15/2024 10:32 PM [facility] INR 1.1 See Comment 12/15/2024 10:32 PM [facility] Comment:The suggested therap eutic range for standard coumadin (warfarin) therapy is an INR of 2.0-3.0. For high-risk patients (Mechanical Mitral Valve Prosthesis, etc.), the suggested prophylactic therapeutic range is an INR of 2.5-3.5. Blood BLOOD SPECIMEN / Unknown Venipuncture / Unknown 12/15/2024 10:06 PM CDT 12/15/2024 10:08 PM CDT us Frank River MD LAB - COAGULATION ORDERABL ES Final Result [facility] [address] [place] [address], [place] [phone] * TYPE + SCREEN PANEL (12/15/2024 10:06 PM CDT) Antibody Screen NEG 10:56 PM CDT [facility] BLOOD BANK LAB ABO Rh O POS 12/15/2024 10:56 PM CDT [facility] BLOOD BANK LAB Blood Bank BLOOD SPECIMEN / Unknown Venipuncture / Unknown 12/15/2024 10:06 PM CDT 12/15/2024 10:12 PM CDT us Frank River MD LAB - BLOOD BANK ORDERABLE S Final Result Performing Organization Address [facility] de Phone Number [facility] BLOOD BANK LAB [address] [place] [address], [place] [phone] * ALCOHOL ETHYL BLOOD (12/15/2024 10:06 PM CDT) Ethanol (mg/dL) <10 <10 mg/dL 10:38 PM CDT [facility] Ethanol Calculated (g/dL) <0.010 <=0.010 g/dL 12/15/2024 10:38 PM CDT [facility] Blood BLOOD SPECIMEN / Unknown Venipuncture / Unknown 12/15/2024 10:06 PM CDT 12/15/2024 10:11 PM CDT Narrative [facility] - 12/15/2024 10:38 PM CDT Ethanol Interp <10: None Detected. Depression of SOIL CONSERVATIONIST: >100 mg/dl Potentially Critical: >250 mg/dl Potentially Fatal >400 mg/dl Ethanol in the patient's blood will contribute to the osmolar gap. Ethanol's contribution to the osmolar gap can be estimated by dividing the concentration of ethanol in mg/dL by 4.6. This test is for clinical use only and does not equal a RODRICK for legal purposes. us Frank River MD LAB - CHEMISTRY ORDERABLES Final Result Performing Organization Address [facility]/ZIP Co de Phone Number [facility] [address] [place] [address], [place] [phone] from Last 3 Months Insurance [facility] MANAGED MEDICARE ADV Advance Directives * Full Code (Latest Code Status on File) Date Activated Date Inactivated Comments 12/16/2024 2:06 AM 12/21/2024 9:26 PM Care Teams Civil Process Server Relationship Specialty Start Date End Date Sancho Zavala MD [address] [place] [address] PCP - General Family Medicine 12/16/24
--- NOTE | 2025-03-03 17:04 | ECG_ITS ---
Test Date: 2025-03-03 17:09:04 Measurements Intervals [place] Rate: 150 P: 0 [place]: 0 QRS: 16 QRSD: 86 T: 31 QT: 276 QTc: 436 Interpretive Statements ATRIAL FIBRILLATION WITH RAPID VENTRICULAR RESPONSE DELAYED PRECORDIAL R/S TRANSITION BORDERLINE ST-T WAVE ABNORMALITY- INF/HIGH LAT LEADS ABNORMAL ECG No previous ECG available for comparison Electronically Signed On 03-03-2025 19:39:58 CDT by Renny Neumann D.O.
--- NOTE | 2025-03-03 17:11 | ED_ITS ---
HPI - SOB/Dyspnea General Chief Complaint: Shortness of Breath/Dyspnea <Jeffrey Ash APRN - Last Filed: 03/03/25 17:14> Stated Complaint: SOB, shaking x 1hr, brain hemorrhage 1 mo ago <Jeffrey Ash APRN - Last Filed: 03/03/25 17:14> Time Seen by Provider: 03/03/25 17:22 <Jeffrey Ash APRN - Last Filed: 03/03/25 17:14> 84-year-old female presents to the ER complaining of cough, chills, shortness of breath the last few days. Patient has a history of intracranial hemorrhage, AFib, hypertension. Patient no longer takes blood thinners due to her history of her brain bleed from a fall a month ago. She denies any chest pain, nausea, vomiting, headache, vision change in, dizziness, lightheadedness.F ocused HPI: GENERAL: Well-appearing, well-nourished, and in no acute distress. She is pale appearing. HEAD: Normocephalic, atraumatic. MOUTH: Dry mucous membranes CHEST: Clear to auscultation. ?No respiratory distress. HEART: Irregular rate and irregular rhythm.? NEURO: ?Alert and oriented x3. No obvious focal neurological abnormalities. No pronator drift, no limb ataxia. Cranial nerve 2-12 grossly intact. Manager Cosmetic strength 5/5 equal bilaterally. No facial droop, no slurred speech. Patient screened in triage and initial orders placed.? ?Additional care and disposition to be based upon?diagnostic testing and treatment. <Jeffrey Ash APRN - Last Filed: 03/03/25 17:14> Source: patient <Frank Bird MD - Last Filed: 03/03/25 18:46> Limitations: no limitations <Frank Bird MD - Last Filed: 03/03/25 18:46> History of Present Illness HPI Narrative: 84-year-old with a history of hypertension, CAD status post stent, atrial fibrillation not on any anticoagulation secondary to bleeding high here with a complaint of shortness of breath and having shakes since this afternoon. Patient states that for the past few days she has been having intermittent shortness of breath. She has occasional cough but nonproductive. She denies any fever. <Frank Bird MD - Last Filed: 03/03/25 18:46> MD elicited complaint: shortness of breath <Frank Bird MD - Last Filed: 03/03/25 18:46> Onset (ago): day(s) (1) <Frank Bird MD - Last Filed: 03/03/25 18:46> Timing: constant <Frank Bird MD - Last Filed: 03/03/25 18:46> Severity: moderate <Frank Bird MD - Last Filed: 03/03/25 18:46> Exacerbating factors: lying flat <Frank Bird MD - Last Filed: 03/03/25 18:46> Relieving factors: nothing <Frank Bird MD - Last Filed: 03/03/25 18:46> Known history of: congestive heart failure <Frank Bird MD - Last Filed: 03/03/25 18:46> Associated symptoms: denies other symptoms <Frank Bird MD - Last Filed: 03/03/25 18:46> Treatment prior to arrival: none <Frank Bird MD - Last Filed: 03/03/25 18:46> Related Data Home Medications: Home Medications ?Medication ?Instructions ?Recorded ?Confirmed ?Last Taken ?Type aspirin 81 mg tablet,delayed 81 mg PO DAILY 05/18/20 01/09/25 Unknown History release (Adult Low Dose Aspirin) sapfsmuo-knrttyp-lvod-lutein tablet tablet PO 05/18/20 01/09/25 Unknown History nitroglycerin 0.4 mg sublingual 0.4 mg sublingual Q5M PRN chest 05/18/20 01/09/25 Unknown History tablet pain omega-3 fatty acids 1,000 mg 1,000 mg PO BID 05/18/20 01/09/25 Unknown History capsule (Fish Oil Concentrate) <Jeffrey Ash APRN - Last Filed: 03/03/25 17:14> Allergies/Adverse Reactions: Allergies Allergy/AdvReac Type Severity Reaction Status Date / Time No Known Allergies Allergy Mild Verified 03/03/25 17:03 <Jeffrey Ash APRN - Last Filed: 03/03/25 17:14> Review of Systems 2 Review of Systems: All systems reviewed & are unremarkable except as noted in HPI and below <Frank Bird MD - Last Filed: 03/03/25 18:46> Constitutional: Constitutional: Reports no additional constitutional complaints <Frank Bird MD - Last Filed: 03/03/25 18:46> Eyes: Eyes: Reports no additional eye complaints <Frank Bird MD - Last Filed: 03/03/25 18:46> ENT: Reports system reviewed and no additional complaints, except as documented <Frank Bird MD - Last Filed: 03/03/25 18:46> Cardiovascular: Cardiovascular: Reports no additional cardiovascular complaints <Frank Bird MD - Last Filed: 03/03/25 18:46> Respiratory: Respiratory: Reports as per HPI <Frank Bird MD - Last Filed: 03/03/25 18:46> Gastrointestinal: Gastrointestinal: Reports no additional gastrointestinal complaints <Frank Bird MD - Last Filed: 03/03/25 18:46> Musculoskeletal: Musculoskeletal: Reports no additional musculoskeletal complaints <Frank Bird MD - Last Filed: 03/03/25 18:46> Integumentary/Breasts: Skin/Breast: Reports system reviewed and no additional complaints, except as docu <Frank Bird MD - Last Filed: 03/03/25 18:46> Psychiatric: Psychiatric: Reports no additional psychiatric complaints < Frank Bird MD - Last Filed: 03/03/25 18:46> [facility] Past Medical History Medical History: Medical History (Updated 03/03/25 @ 18:44 by Frank Bird MD) SAH (subarachnoid hemorrhage) Pneumothorax Osteopenia Mixed hyperlipidemia Healthcare maintenance Former tobacco use Elevated ALT measurement Vitamin D deficiency, unspecified Valvular heart disease Stable angina Osteopenia of multiple sites Ischemic cardiomyopathy Impaired glucose tolerance Impaired fasting glucose Hyperlipidemia with target LDL less than 100 Hx of myocardial infarction 2015 High risk medication use CKD (chronic kidney disease) stage 3, GFR 30-59 ml/min Breast screening Borderline diabetes Benign essential HTN Aortic valve sclerosis Acute right-sided thoracic back pain Major depressive disorder, recurrent, moderate Prediabetes CAD (coronary artery disease) Mixed hyperlipidemia HTN (hypertension) <Jeffrey Ash APRN - Last Filed: 03/03/25 17:14> Surgical History Surgical History: Surgical History H/O aortic valve replacement [facility] History of right coronary artery stent placement History of coronary artery bypass graft x 2 History of aortic valve replacement with bioprosthetic valve Status post transcatheter aortic valve replacement History of coronary artery stent placement 2015 S/P CABG x 3 <Jeffrey Ash APRN - Last Filed: 03/03/25 17:14> Family History Family History: Family History Father Family history of heart disease in male family member before age 55 Hypertension, Onset Age: 79 Family history of coronary artery disease, Onset Age: 79 Mother Family history of heart disease in male family member before age 55 Cerebrovascular accident Sibling Family history of malignant neoplasm of breast in first degree relative Grandparent Family history of heart disease in male family member before age 55 Other Diabetes mellitus <Jeffrey Ash APRN - Last Filed: 03/03/25 17:14> Social History Social History: Social History Social History: Smoking status: Former smoker Tobacco type: cigarettes Second hand tobacco smoke exposure: No Smoking end date: 07/31/14 Alcohol intake: never Substance use: never Substance use type: does not use Do You Feel Safe in your Home?: Yes Lack of Transportation: No Lack of Food: Never True Current Housing: I Have Housing Concerned About Future Housing: No Difficulty Paying Gas/Electric Bills: No Difficulty Paying for Meds: No Currently Unemployed: YES Education: Don't Know Difficulty w/ Childcare or Family Care: No Living arrangements: with family Occupation/Education: retired Gender identity (if verbalized by the patient): Female Sexual Orientation (if Verbalized by the Patient): Straight or Heterosexual <Jeffrey Ash APRN - Last Filed: 03/03/25 17:14> Exam 2 Narrative: GENERAL: Well-appearing, well-nourished, and in no acute distress. Anxious HEAD: Normocephalic, atraumatic. EYES: PERRLA and EOMI. ENT: Nares clear, no rhinorrhea or epistaxis. Mucous membranes moist. NECK: Supple. CHEST: Clear to auscultation. No respiratory distress. HEART: Tachycardic No murmur heard. Normal peripheral pulses. ABDOMEN: Soft, nontender, nondistended, normal active bowel sounds. EXTREMITIES: Normal range of motion. No edema. SKIN: Warm, dry, no rash. NEURO: No focal deficits. Alert and oriented x3. PSYCH: Normal mood and affect. <Frank iBrd MD - Last Filed: 03/03/25 18:46> Course Course Emergency Course: Patient upon arrival was in AFib with RVR rate of 150s I did administer 10 mg of Cardizem which brought her down to 120s did administer another additional 10 mg and started on the drip heart rate varies from 1 teens to 120s. Informed patient and her son who is at bedside about the lab work. She is agreeable with admission. I discussed with Dr. Tamayo will see the patient in consult . Hospitalist notified <Frank Bird MD - Last Filed: 03/03/25 18:46> Vital Signs Vital signs: Vital Signs Temperature 37.2 C 03/03/25 16:58 Pulse Rate 92 03/03/25 16:58 Respiratory Rate 22 H 03/03/25 16:58 Blood Pressure 138/73 03/03/25 16:58 Pulse Oximetry 96 03/03/25 16:58 Oxygen Delivery Room Air 03/03/25 16:58 Temperature 37.2 C 03/03/25 16:58 Pulse Rate 166 H 03/03/25 17:30 Respiratory Rate 33 H 03/03/25 17:30 Blood Pressure 121/81 03/03/25 17:30 Pulse Oximetry 97 03/03/25 17:30 Oxygen Delivery Room Air 03/03/25 17:30 <Jeffrey Ash APRN - Last Filed: 03/03/25 17:14> Vital Signs Temperature 37.2 C 03/03/25 16:58 Pulse Rate 92 03/03/25 16:58 Respiratory Rate 22 H 03/03/25 16:58 Blood Pressure 138/73 03/03/25 16:58 Pulse Oximetry 96 03/03/25 16:58 Oxygen Delivery Room Air 03/03/25 16:58 Temperature 37.2 C 03/03/25 16:58 Pulse Rate 166 H 03/03/25 17:30 Respiratory Rate 33 H 03/03/25 17:30 Blood Pressure 121/81 03/03/25 17:30 Pulse Oximetry 97 03/03/25 17:30 Oxygen Delivery Room Air 03/03/25 17:30 <Frank Bird MD - Last Filed: 03/03/25 18:46> MDM - SOB/Dyspnea Differential Diagnosis Differential diagnosis: Likely acute exacerbation of chronic obstructive airways disease and congestive heart failure <Frank Bird MD - Last Filed: 03/03/25 18:46> Medical Records Attestation: I reviewed the patient's medical records. <Frank Bird MD - Last Filed: 03/03/25 18:46> Lab Data Attestation: I reviewed the patient's lab results. <Frank Bird MD - Last Filed: 03/03/25 18:46> Result diagrams: 03/03/25 17:38 03/03/25 17:38 <Jeffrey Ash APRN - Last Filed: 03/03/25 17:14> Labs: Lab Results 03/03/25 03/03/25 Range/Units 17:38 17:55 WBC 9.8 (4.5-10.0) K/mm3 RBC 4.51 (4.2-5.4) M/mm3 Hgb 12.4 (12.0-15.0) g/dL Hct 39.0 (37.0-47.0) % MCV 86.5 (80-100) fl MCH 27.5 (26-34) pg MCHC 31.8 L (32-36) g/dl RDW 14.1 (11.5-14.5) % Plt Count 217 (150-375) k/mm3 MPV 10.9 H (7.4-10.4) fl Immature Gran % (Auto) 0.4 (0-0.5) % Neut % (Auto) 85.7 H (45.5-73.1) % Lymph % (Auto) 9.4 L (18.3-44.2) % [place] % (Auto) 3.2 (2.6-8.5) % Eos % (Auto) 0.7 (0-4.4) % Baso % (Auto) 0.6 (0.2-1.2) % Lymph # (Auto) 0.92 (0.9-3.2) K/mm3 [place] # (Auto) 0.3 (0.1-0.6) K/mm3 Eos # (Auto) 0.1 (0-0.3) K/mm3 Baso # (Auto) 0.1 (0.0-0.1) K/mm3 Abs Immat Gran (auto) 0.04 H (0.00-0.031) K/mm3 Absolute Neuts (auto) 8.4 H (1.3-6.7) K/mm3 Absolute Nucleated RBC 0.000 (0.0-0.012) K/mm3 Nucleated RBC % 0.0 (0.0-0.2) % Sodium 137 (137-145) mmol/L Potassium 4.8 (3.4-5.0) mmol/L Chloride 102 (98-107) mmol/L Carbon Dioxide 23 (22-30) mmol/L Anion Gap 12 (4-12) mmol/L BUN 31 H (7-17) mg/dL Creatinine 1.08 H (0.7-1.0) mg/dL Estim Creat Clear Calc 35 ml/min Estimated GFR 48 L (59 - ) Glucose 137 H (65-110) mg/dL Lactic Acid 2.3 H (0.7-2.0) mmol/L Calcium 9.6 (8.4-10.2) mg/dL Total Bilirubin 1.6 H (0.2-1.3) mg/dL AST 34 (14-36) U/L ALT 24 (6-35) U/L Alkaline Phosphatase 73 (38-126) U/L Troponin I 0.041 H* (0.000-0.034) ng/mL NT-Pro-B Natriuret Pep 2890 H (19.9-100) pg/mL Total Protein 8.0 (6.3-8.2) g/dL Albumin 4.2 (3.5-5.1) g/dL <Jeffrey Ash, BUSINESS CHANGE MANAGER - Last Filed: 03/03/25 17:14> Lab Results 03/03/25 03/03/25 Range/Units 17:38 17:55 WBC 9.8 (4.5-10.0) K/mm3 RBC 4.51 (4.2-5.4) M/mm3 Hgb 12.4 (12.0-15.0) g/dL Hct 39.0 (37.0-47.0) % MCV 86.5 (80-100) fl MCH 27.5 (26-34) pg MCHC 31.8 L (32-36) g/dl RDW 14.1 (11.5-14.5) % Plt Count 217 (150-375) k/mm3 MPV 10.9 H (7.4-10.4) fl Immature Gran % (Auto) 0.4 (0-0.5) % Neut % (Auto) 85.7 H (45.5-73.1) % Lymph % (Auto) 9.4 L (18.3-44.2) % [place] % (Auto) 3.2 (2.6-8.5) % Eos % (Auto) 0.7 (0-4.4) % Baso % (Auto) 0.6 (0.2-1.2) % Lymph # (Auto) 0.92 (0.9-3.2) K/mm3 [place] # (Auto) 0.3 (0.1-0.6) K/mm3 Eos # (Auto) 0.1 (0-0.3) K/mm3 Baso # (Auto) 0.1 (0.0-0.1) K/mm3 Abs Immat Gran (auto) 0.04 H (0.00-0.031) K/mm3 Absolute Neuts (auto) 8.4 H (1.3-6.7) K/mm3 Absolute Nucleated RBC 0.000 (0.0-0.012) K/mm3 Nucleated RBC % 0.0 (0.0-0.2) % Sodium 137 (137-145) mmol/L Potassium 4.8 (3.4-5.0) mmol/L Chloride 102 (98-107) mmol/L Carbon Dioxide 23 (22-30) mmol/L Anion Gap 12 (4-12) mmol/L BUN 31 H (7-17) mg/dL Creatinine 1.08 H (0.7-1.0) mg/dL Estim Creat Clear Calc 35 ml/min Estimated GFR 48 L (59 - ) Glucose 137 H (65-110) mg/dL Lactic Acid 2.3 H (0.7-2.0) mmol/L Calcium 9.6 (8.4-10.2) mg/dL Total Bilirubin 1.6 H (0.2-1.3) mg/dL AST 34 (14-36) U/L ALT 24 (6-35) U/L Alkaline Phosphatase 73 (38-126) U/L Troponin I 0.041 H* (0.000-0.034) ng/mL NT-Pro-B Natriuret Pep 2890 H (19.9-100) pg/mL Total Protein 8.0 (6.3-8.2) g/dL Albumin 4.2 (3.5-5.1) g/dL <Frank Bird MD - Last Filed: 03/03/25 18:46> Imaging Data Radiologist's impression: ITS Impressions Chest X-Ray 03/03/25 17:29 IMPRESSION: No focal infiltrate or effusion. <Frank Bird MD - Last Filed: 03/03/25 18:46> ECG Data EKG #1: ECG completion date: 03/03/25 <Frank Bird MD - Last Filed: 03/03/25 18:46> ECG completion time: 17:09 <Frank Bird MD - Last Filed: 03/03/25 18:46> EKG Interpretation: tachycardia (150), atrial fibrillation, no ectopy and NL axis <Frank Bird MD - Last Filed: 03/03/25 18:46> Critical Care Time Critical Care Time Critical Care Time: Yes <Frank Bird MD - Last Filed: 03/03/25 18:46> Total Critical Care Time: 45 <Frank Bird MD - Last Filed: 03/03/25 18:46> Discharge Plan Discharge Clinical Impression: Atrial fibrillation with RVR, Elevated troponin I level <Jeffrey Ash APRN - Last Filed: 03/03/25 17:14> Patient Disposition: Still a Patient <Jeffrey Ash APRN - Last Filed: 03/03/25 17:14> Condition: Stable <Jeffrey Ash APRN - Last Filed: 03/03/25 17:14> Patient Language: Maltese <Jeffrey Ash APRN - Last Filed: 03/03/25 17:14> Prescriptions: No Action aspirin [Adult Low Dose Aspirin] 81 mg tablet,delayed release (DR/EC) 81 mg PO DAILY aegdjcax-bjbjodn-xhhq-lutein Tablet PO nitroglycerin 0.4 mg tablet, sublingual 0.4 mg sublingual Q5M PRN (Reason: chest pain) Rx Instructions: do not exceed 3 doses per episode omega-3 fatty acids [Fish Oil Concentrate] 1,000 mg capsule 1,000 mg PO BID metoprolol tartrate 25 mg tablet 25 mg PO BID Qty: 100 2RF atorvastatin 20 mg tablet 20 mg PO DAILY Qty: 100 1RF sertraline 25 mg tablet See Rx Instructions .ROUTE .COMPLEX Qty: 100 6RF Dose Instruction: TAKE 2 TABLETS BY MOUTH DAILY Rx Instructions: TAKE 2 TABLETS BY MOUTH DAILY lisinopril 10 mg tablet See Rx Instructions .ROUTE .COMPLEX Qty: 180 3RF Dose Instruction: TAKE 1 TABLET BY MOUTH TWICE DAILY Rx Instructions: TAKE 1 TABLET BY MOUTH TWICE DAILY alendronate 70 mg tablet See Rx Instructions .ROUTE .COMPLEX Qty: 12 3RF Dose Instruction: TAKE 1 TABLET BY MOUTH WEEKLY WITH 8 OZ OF PLAIN WATER 30 MINUTES BEFORE FIRST FOOD, DRINK OR MEDS. STAY UPRIGHT FOR 30 MINS Rx Instructions: TAKE 1 TABLET BY MOUTH WEEKLY WITH 8 OZ OF PLAIN WATER 30 MINUTES BEFORE FIRST FOOD, DRINK OR MEDS. STAY UPRIGHT FOR 30 MINS <Jeffrey Ash APRN - Last Filed: 03/03/25 17:14> Follow-up/Referrals: Sancho Zavala MD [Primary Care Provider] - <Jeffrey Ash APRN - Last Filed: 03/03/25 17:14> Time of Disposition: 18:44 <Jeffrey Ash APRN - Last Filed: 03/03/25 17:14> 18:44 <Frank Bird MD - Last Filed: 03/03/25 18:46>
--- OUTSIDE RECORDS SUMMARY | 2025-03-03 17:41 | XMS_ITS | Clinical Summary ---
Author Organization [facility] [address] Address [address] [place] [address] Care Team Providers Care Field Cane Scale Clerk Name Role Phone Sancho Zavala MD Primary Care Provider Allergies No known active allergies Medications multivit-minera x-cgtk-bwicoc (CENTRUM SILVER ULTRA WOMEN'S) tablet 0 0 [...] daily. 90 tablet 2 7 Active calcium-vits F7-T-R6-mineral s 166.75 mg- 166.75 unit capsule Take [...] fatigue 03/13/2017 Coronary artery disease invo lving king salmon coronary artery of king salmon heart without angina pectoris 03/13/2017 History of [...] Description 01/30/2025 9:00 AM CDT Office Visit [facility] Cardiology [address] [facility] [address] [place] [phone] Shaun Benton MD S/P aortic valve replacement with bioprosthetic valve (Primary Dx); History of coronary artery bypass surgery; Persistent atrial fibrillation (HCC) 01/23/2025 2:00 PM CDT Ancillary Procedure [facility] Cardiology at [address] [place] [phone] Persistent atrial fibrillation (HCC) 01/16/2025 Anticoagulation Visit [facility] Cardiology at [address] [place] [address] Iona Bryan RN Atrial fibrillation, unspecified type (HCC) (Primary Dx) 01/15/2025 Telephone [facility] Cardiology [address] [facility] [address] [place] [address] Shaun Benton MD 01/14/2025 2:00 PM CDT Ancillary Procedure [facility] Cardiology at [address] [place] [address] 01/14/2025 1:30 PM CDT Office Visit [facility] Cardiology at [address] [place] [id number] Shaun Benton MD S/P aortic valve replacement with bioprosthetic valve (Primary Dx); History of coronary artery bypass surgery; Persistent atrial fibrillation (HCC); Other thrombophilia (HCC) 01/13/2025 Telephone [facility] Cardiology [address] [place] [address] Shaun Benton MD from Last 3 Months Medical History Medical History Date Comments Hx Other Medical hypertension, a ortic stenosis, eczema, obesity, hi; Comments: [facility] 08/28/2014 - Hx Other Medical CAD; Comments: [facility] 09/25/2014 - Family History Medical History [...] on file 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 Gender Identity Not on file Sexual Orientation Not on file Obstetrics History Last Filed Vital Signs Vital Sign Reading Time Taken Comments Blood Pressure 122/60 01/30/2025 8:59 AM CDT Pulse 59 01/30/2025 8:59 AM CDT Temperature - - Respiratory Rate 97 09/27/2024 11:06 AM JOB CHANGE CREW MEMBER Oxygen Saturation 96% 01/30/2025 8:59 AM CDT [...] PM CDT Narrative 01/23/2025 4:44 PM CDT [facility] Cardiology [facility] [address], [place] [address] P:[phone] P:[phone] Echocardiographic Report Patient Name: PATRICIO AGUIRRE A : 1940 Study Date: 01/23/2025 1:58:36 PM Gender: F 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 Left Ventricle: Normal left ventricular size. Mild [...] Procedure Note Marvin Alvarado MD - 01/23/2025 [facility] Cardiology [address] [address], [address], [place] [address] P:[phone] P:[phone] Echocardiographic Report Patient Name: PATRICIO AGUIRRE A : 1940 Study Date: 01/23/2025 1:58:36 PM Gender: F Cigar Roller: SAMANTHA Location: [facility] Ref Provider: SHAUN BENTON [...] [ 3.80 - 5.20 ] AV Peak Lbu 1.92m/s [ 1.00 - 1.70 ] LVIDd [...] FINDINGS: Interpretation Site: Exam was interpreted at [facility]. Left Ventricle: Normal left ventricular size. Mild [...] phy Narrative 01/30/2025 7:01 AM CDT AMBULATORY OPTOMETRIC COORDINATOR REPORT Patient Name: Patricio Aguirre Date [...] was used to complete this document, therefore, wound specialist variances may occur. Shaun Benton MD [facility] 01/30/25 Shaun Benton MD [facility] [...] Most Recently Relevant to Health Maintenance Insurance [facility] [address] Care Teams Field Cane Scale Clerk Relationship Specialty Start Date End Date Sancho Zavala MD [address] [place] [address] PCP - General Family Medicine 01/14/25
--- OUTSIDE RECORDS SUMMARY | 2025-03-03 17:41 | XMS_ITS | Clinical Summary ---
Author Organization [facility] Address [address] [place] [address] Care Team Providers [employer] Underwriter Name Role Phone Sancho Zavala MD Primary Care Provider [phone] Source Comments [facility],non-owned Affiliates and Associated Physician Practices is amultiple site organization consisting of ambulatory clinics and hospital sitesin [place], [place], [place] and [place]. This disclosure is being madepursuant to the Care Everywhere program and may not contain all information available regarding this patient. Last updated 18.[facility] Allergies No known active allergies Medications * [...] Telephone [facility] - General Surgery [address] [place] [phone] Isabella Ballard RN Coordination Of Care 01/17/2025 Transitional Care [facility] CARE COORDINATION [address] [place] [address] Eileen Doran RN Transitions Of Care 01/16/2025 12:00 PM CDT Clinical Support [facility] - General Surgery [address] [place] [phone] Closed fracture of multiple ribs of left side, initial encounter 01/16/2025 Travel 01/15/2025 9:57 AM CDT - 01/15/2025 11:59 PM CDT Hospital Encounter [facility] - Outside Imaging Discharge Disposition: Home or Self Care 01/14/2025 Telephone [facility] - General Surgery [address] [place] [phone] Isabella Ballard RN Imaging 12/24/2024 Transitional Care [facility] COORDINATION [address] [place] [address] Eileen Doran RN Transitions Of Care 12/16/2024 11:14 AM CDT Anesthesia Event [facility] DIAGNOSTIC RAD [address] [place] [address] Vitor Red, 12/15/2024 9:51 PM CDT - 12/21/2024 7:00 PM CDT Hospital Encounter [facility] 5S ACUTE [address] [place] [address] Adis Gillis MD [place], Kene A, MD [...] care, and heating? Not very hard 12/16/2024 [facility] [place] of Occupat ional Health - Occupational Stress [...] any time in the past 12 m [facility], were you homeless or living in a retirement (including now)? No 12/16/2024 Comments Unknown Sex [...] LYSIS STAT 12/15/2024 10:06 PM CDT PT-INR [facility] STAT 12/15/2024 10:06 PM CDT CBC W AUTO DIFFERENTIAL STAT 12/15/2024 10:06 PM CDT BASIC METABOLIC PANEL (CALCIUM TOTAL) STAT 12/15/2024 10:06 PM CDT ALCOHOL ETHYL BLOOD STAT 12/15/2024 1 0:06 PM CDT from Last 3 Months Results * XR Chest Outside (01/09/2025 10:42 AM CDT) Narrative [facility] RADIOLOGY - 02/11/2025 10:42 AM CDT This is a study from an outside facility that has been uploaded into PACS. us Provider [employer] IMAGING Final Result [facility] RADIOLOGY * POTASSIUM BLOOD (12/21/2024 5:41 PM CDT) Potassium 4.5 3.5 - 4.5 mmol/L 12/21/2024 6:18 PM CDT [facility] Blood BLOOD SPECIMEN / Unknown Venipuncture / Unknown 12/21/2024 5:41 PM CDT 12/21/2024 5:58 PM CDT us Avani Smith PA-C LAB - CHEMISTRY ORDERABLES Fin al Result Performing Organization Address City/[facility]/ZIP Co de Phone Number [facility] [place] [id number] [place] [address], [facility] [phone] * EKG 12-LEAD (12/21/2024 4:56 PM CDT) Only the most recent of2 resultswithin the time period is included. Ventricular Rate 111 BPM [facility] MUSE QRS Duration ms 78 ms [facility] MUSE Q-T Interval ms 338 ms [facility] MUSE QTC Calculation (Bezet) 459 ms [facility] MUSE Calculated R [place] 10 degrees [facility] MUSE Calculated T [place] -22 degrees [facility] MUSE Interpretation EKG ATRIAL FIBRILLATION WITH RAPID VENTRICULAR RESPONSE ABNORMAL ECG WHEN COMPARED WITH ECG OF 15-DEC-2024 23:24, NONSPECIFIC T WAVE ABNORMALITY, IMPROVED IN LATERAL LEADS Confirmed by JENNIFER CANAS MD ([id number]) on 12/23/2024 12:38:05 PM [facility] MUSE 12/21/2024 4:56 PM CDT 12/23/2024 12:38 PM CDT Avani Smith PA-C ECG ORDERABLES Edited Result - Final Performing Organization Address [facility] de Phone Number [facility] CHRIS * XR Chest 1Vw Portable (12/21/2024 3:14 PM CDT) Only the most recent of8 resultswithin the time period is included. Anatomical Region Laterality Modality Chest Digital Radiogra phy 12/21/2024 3:31 PM CDT Narrative 12/21/2024 6:06 PM CDT PROCEDURE: XR CHEST 1VW PORTABLE, DATE/TIME OF EXAM: 12/21/2024 3:14 PM, LOCATION [facility] INDICATION: J93.9: Pneumothorax, unspecified type ADDITIONAL CLINICAL [...] fractures. > Dictated by Luis Byrd MD (residential field manager). Philipp Green MD have personally reviewed and interpreted this examination/study. > Interpreting Provider: Philipp Shepherd MD on 12/21/2024 6:06 PM Procedure Note Philipp Shepherd MD - 12/21/2024 PROCEDURE: XR CHEST 1VW PORTABLE, DATE/TIME OF EXAM: 12/21/2024 3:14PM, LOCATION [facility] INDICATION: J93.9: Pneumothorax, unspecified type ADDITIONAL CLINICAL [...] fractures. > Dictated by Luis Byrd MD (residential field manager). Philipp Green MD have personally reviewed and interpreted this examination/study. > Interpreting Provider: Philipp Shepherd MD on 12/21/2024 6:06 PM Avani Smith PA-C DIAGNOSTIC IMAGING ORDERABLES Final Result * (ABNORMAL) BASIC METABOLIC PANEL (CALCIUM TOTAL) (12/21/2024 1:59 PM CDT) Only the most recent of8 resultswithin the time period is included. BUN 30(H) 7 - 26 mg/dL 12/21/2024 2:27 PM CDT [facility] Creatinine 1.01(H) 0.56 - 0.96 mg/dL 12/21/2024 2:27 PM CDT [facility] Sodium 138 136 - 145 mmol/L 12/21/2024 2:27 PM [facility] Potassium 5.1(H) 3.5 - 4.5 mmol/L 12/21/2024 2:27 PM [facility] Chloride 105 98 - 107 mmol/L 12/21/2024 2:27 PM [facility] CO2 21(L) 22 - 29 mmol/L 12/21/2024 2:27 PM [facility] Glucose 122(H) 70 - 99 mg/dL 12/21/2024 2:27 PM [facility] Calcium 9.0 8.4 - 10.2 mg/dL 12/21/2024 2:27 PM [facility] Anion Gap 12 6 - 16 12/21/2024 2:27 PM [facility] BUN/Creatinine Ratio 30(H) 7 - 23 12/21/2024 2:27 PM [facility] Osmolality Calculated 293 275 - 295 mOsm/kg 12/21/2024 2:27 PM [facility] eGFR by CKD-EPI 55(L) >=90 mL/min/1.7 3 m2 12/21/2024 2:27 PM [facility] Blood BLOOD SPECIMEN / Unknown Lab Venipuncture / Unknown 12/21/2024 1:59 PM CDT 12/21/2024 2:06 PM CDT us Avani Smith PA-C LAB - CHEMISTRY ORDERABLES Fin al Result Performing Organization Address [facility]/State/ZIP Co de Phone Number [facility] [address] [place] [phone], [facility] [phone] * (ABNORMAL) GLUCOSE - POINT OF CARE (12/21/2024 8:15 AM CDT) Only the most recent of23 resultswithin the time period is included. Glucose WB/POC 126(H) 70 - 99 mg/dL 12/21/2024 8:16 AM [facility] Specimen Type Arterial/C apillary 12/21/2024 8:16 AM [facility] Blood BLOOD SPECIMEN / Unknown 12/21/2024 8:15 AM CDT 12/21/2024 8:16 AM CDT Frank River MD LAB - POINT OF CARE ORDERA BLES Final Result Performing Organization Address City/[facility]/ZIP Co de Phone Number [address] [address], [place] [phone] * PHOSPHORUS BLOOD (12/21/2024 4:07 AM CDT) Only the most recent of6 resultswithin the time period is included. Phosphorus 4.9 2.9 - 5.1 mg/dL 12/21/2024 5:00 AM CDT [facility] Blood BLOOD SPECIMEN / Unknown Lab Venipuncture / Unknown 12/21/2024 4:07 AM CDT 12/21/2024 4:24 AM CDT Frank River MD LAB - CHEMISTRY ORDERABLES Final Result Performing Organization Address [facility] Co de Phone Number [address] [address], [place] [phone] * MAGNESIUM BLOOD (12/21/2024 4:07 AM CDT) Only the most recent of6 resultswithin the time period is included. Magnesium 1.9 1.6 - 2.6 mg/dL 12/21/2024 5:00 AM CDT [facility] Blood BLOOD SPECIMEN / Unknown Lab Venipuncture / Unknown 12/21/2024 4:07 AM CDT 12/21/2024 4:24 AM CDT Frank River MD LAB - CHEMISTRY ORDERABLES Final Result Performing Organization Address City/[facility]/ZIP Co de Phone Number [address] [address], [place] [phone] * (ABNORMAL) HEMOGLOBIN A1C (12/20/2024 3:14 AM CDT) Only the most recent of2 resultswithin the time period is included. Hemoglobin A1c 5.9(H) <=5.6 % 12/20/2024 11:23 AM [facility] Estimated Average Glucose 123 mg/dL 12/20/2024 11:23 AM T [facility] Comment: HbA1c Interpretation: Normal : < 5.7% Pre-diabetes: 5.7-6.4% Diabetes: Equal to or greater than 6.5% Test results diagnostic of diabetes should be repeated for confirmation. Treatment target values recommended by ADA and other clinical organizations should be used to evaluate metabolic control in patients. Reference: [place] [employer], Standards of Care in Diabetes [...] CDT 12/20/2024 4:46 AM CDT Andra Santillan APRN-A&P TECHNICIAN LAB - CHEMISTRY ORDERABL ES Final Result [facility] [address] [address], [facility] [phone] * (ABNORMAL) CALCIUM IONIZED WHOLE BLOOD (12/19/2024 3:49 AM CDT) Only the most recent of4 resultswithin the time period is included. Calcium Ionized 1.20 mmol/L 12/19/2024 3:58 AM [facility] pH 7.36 7.35 - 7.45 pH 12/19/2024 3:58 AM T [facility] Ionized Calcium pH Adjusted 1.18(L) 1.19 - 1.34 mmol/L 12/19/2024 3:58 AM T [facility] Blood BLOOD SPECIMEN / Unknown Lab Venipuncture / Unknown 12/19/2024 3:49 AM CDT 12/19/2024 3:53 AM CDT us Frank River MD LAB - CHEMISTRY ORDERABLES Final Result [facility] [address] [place] [address], [facility] [phone] * (ABNORMAL) CBC W AUTO DIFFERENTIAL (12/19/2024 3:49 AM CDT) Only the most recent of4 resultswithin the time period is included. WBC 8.5 4.0 - 10.7 x10E9/L 12/19/2024 4:06 AM [facility] RBC Count 3.70(L) 3.90 - 5.20 x10E12/L 12/19/2024 4:06 AM [facility] Hemoglobin 10.5(L) 11.9 - 15.8 g/dL 12/19/2024 4:06 AM [facility] Hematocrit 32.0(L) 34.8 - 46.1 % 12/19/2024 4:06 AM [facility] MCV 86.5 80.0 - 98.0 fL 12/19/2024 4:06 AM [facility] MCH 28.4 26.7 - 33.6 pg 12/19/2024 4:06 AM [facility] MCHC 32.8 31.7 - 36.3 g/dL 12/19/2024 4:06 AM [facility] RDW-CV 13.6 11.3 - 14.8 % 12/19/2024 4:06 AM [facility] Platelet Count 189 150 - 420 x10E9/L 12/19/2024 4:06 AM [facility] MPV 11.6(H) 7.8 - 11.4 fL 12/19/2024 4:06 AM [facility] Neutrophil % 59.1 41.0 - 74.0 % 12/19/2024 4:06 AM [facility] Lymphocyte % 25.3 17.0 - 47.0 % 12/19/2024 4:06 AM [facility] Monocyte % 11.2(H) 3.0 - 11.0 % 12/19/2024 4:06 AM [facility] Eosinophil % 3.3 0.0 - 7.0 % 12/19/2024 4:06 AM [facility] Basophil % 0.9 0.0 - 1.6 % 12/19/2024 4:06 AM [facility] Immature Granulocytes % 0.2 0.0 - 1.0 % 12/19/2024 4:06 AM [facility] Neutrophil Absolute 5.00 1.60 - 7.50 x10E9/L 12/19/2024 4:06 AM [facility] Lymphocyte Absolute 2.14 1.00 - 4.40 x10E9/L 12/19/2024 4:06 AM [facility] Monocyte Absolute 0.95 0.15 - 1.00 x10E9/L 12/19/2024 4:06 AM [facility] Eosinophil Absolute 0.28 0.00 - 0.60 x10E9/L 12/19/2024 4:06 AM [facility] Basophil Absolute 0.08 0.00 - 0.13 x10E9/L 12/19/2024 4:06 AM [facility] Blood BLOOD SPECIMEN / Unknown Lab Venipuncture / Unknown 12/19/2024 3:49 AM CDT 12/19/2024 3:57 AM CDT us Frank River MD LAB - HEMATOLOGY ORDERABLE S Final Result Performing Organization Address [facility]/State/[facility] Co de Phone Number [address] [address], [facility] [phone] * CARDIAC EKG ORDER (12/17/2024 2:00 PM [...] DATE/TIME OF EXAM: 12/16/2024 1:24 PM, LOCATION [facility] INDICATION: S22.42XA: Closed fracture of multiple ribs [...] SN, DATE/TIME OF EXAM:12/16/2024 1:24 PM, LOCATION [facility] INDICATION: S22.42XA: Closed fracture of multiple ribs [...] Physician: Aleta LO# #diagnosis# Vitor Red DO [facility] Department of Anesthesiology & Critical Care 12/16/2024 11:18 AM us Frank River MD GENERAL ANESTHESIA ORDERAB LES Final Result * (ABNORMAL) CBC W/O DIFFERENTIAL (12/16/2024 7:55 AM T) WBC 10.3 4.0 - 10.7 x10E9/L 12/16/2024 8:06 AM [facility] RBC Count 3.84(L) 3.90 - 5.20 x10E12/L 12/16/2024 8:06 AM [facility] Hemoglobin 10.8(L) 11.9 - 15.8 g/dL 12/16/2024 8:06 AM [facility] Hematocrit 32.9(L) 34.8 - 46.1 % 12/16/2024 8:06 AM [facility] MCV 85.7 80.0 - 98.0 fL 12/16/2024 8:06 AM [facility] MCH 28.1 26.7 - 33.6 pg 12/16/2024 8:06 AM [facility] MCHC 32.8 31.7 - 36.3 g/dL 12/16/2024 8:06 AM [facility] RDW-CV 13.5 11.3 - 14.8 % 12/16/2024 8:06 AM [facility] Platelet Count 172 150 - 420 x10E9/L 12/16/2024 8:06 AM [facility] MPV 11.4 7.8 - 11.4 fL 12/16/2024 8:06 AM [facility] Blood BLOOD SPECIMEN / Unknown Venipuncture / Unknown 12/16/2024 7:55 AM CDT 12/16/2024 8:00 AM CDT us Frank River MD LAB - HEMATOLOGY ORDERABLE S Final Result [facility] [address] [place] [address], [facility] [phone] * CT Head Wo Contrast (12/16/2024 6:29 [...] patent. Report dictated by Paul Landry MD, (Pediatric Nurse Practitioner). I, Ponce Segura MD have personally reviewed and interpreted this examination/study. > Interpreting Provider: Ponce Segura MD on 12/16/2024 1:32 PM Narrative 12/16/2024 1:32 PM CDT PROCEDURE: CT HEAD WO CONTRAST, DATE/TIME OF EXAM: 12/16/2024 6:29 AM, LOCATION [facility] INDICATION: W19.XXXA: Fall, initial encounter EXAMINATION: Computed [...] DATE/TIME OF EXAM: 12/16/2024 6:29 AM, LOCATION [facility] INDICATION: W19.XXXA: Fall, initial encounter EXAMINATION: Computed [...] patent. Report dictated by Paul Landry MD, (Pediatric Nurse Practitioner). IPonce MD have personally reviewed and interpreted this examination/study. > Interpreting Provider: Ponce Segura MD on 12/16/2024 1:32 PM Dante Jarquin MD CT ORDERABLES Final Result * (ABNORMAL) URINALYSIS W/MICROSCOPIC NO CULTURE (12/16/2024 5:[address] [facility]) Color UA Yellow Yellow, Straw 12/16/2024 6:08 AM [facility] Clarity UA Clear Clear 12/16/2024 6:08 AM [facility] Glucose UA Negative Negative 12/16/2024 6:08 AM [facility] Bilirubin UA Negative Negative 12/16/2024 6:08 AM [facility] Ketone UA Negative Negative 12/16/2024 6:08 AM [facility] Specific Somers UA 1.020 1.005 - 1.030 12/16/2024 6:08 AM [facility] Blood UA 2+(A) Negative 12/16/2024 6:08 AM [facility] pH UA 5.0 5.0 - 8.0 pH 12/16/2024 6:08 AM [facility] Protein UA Negative Negative 12/16/2024 6:08 AM [facility] Urobilinogen UA Negative Negative mg/dL 12/16/2024 6:08 AM [facility] Nitrite UA Negative Negative 12/16/2024 6:08 AM [facility] Leukocyte Esterase UA Negative Negative 12/16/2024 6:08 AM [facility] RBC UA 6-10(A) 0 - 5 # /hpf 12/16/2024 6:08 AM [facility] WBC UA 0-5 0 - 5 # /hpf 12/16/2024 6:08 AM [facility] Bacteria UA None Seen None Seen 12/16/2024 6:08 AM [facility] Squamous Epithelial Cells 0-2 0 - 5 /hpf 12/16/2024 6:08 AM [facility] Urine URINE SPECIMEN OBTAINED BY SINGLE CATHETERIZATION OF URINARY BLADDER / Unknown Collection / Unknown 12/16/2024 5:53 AM CDT 12/16/2024 5:59 AM T us Frank River MD LAB - URINALYSIS ORDERABLE S Final Result [facility] [address] [place] [address], [facility] [phone] * (ABNORMAL) URINE DRUG SCREEN IMMUNOASSAY (12/16/2024 5:53 AM CDT) [facility] Amphetamines Screen Urine Negative Negative : < 1000 ng/mL 12/16/2024 6:20 AM [facility] Barbiturates Screen Urine Negative Negative : < 200 ng/mL 12/16/2024 6:20 AM [facility] Benzodiazepine Screen Urine Negative Negative : < 200 ng/mL 12/16/2024 6:20 AM [facility] Opiates Urine Positive(A) Negative : < 300 ng/mL 12/16/2024 6:20 AM [facility] Comment:Positive urine opiat e screening results should be confirmed by another generally accepted non-immunological method such as gas chromatography or mass spectrometry. Cocaine Metabolites Urine Negative Negative : < 300 ng/mL 12/16/2024 6:20 AM [facility] Phencyclidine Screen Urine Negative Negative : < 25 ng/ml 12/16/2024 6:20 AM [facility] Cannabinoids Screen Urine Negative Negative : <50 ng/mL 12/16/2024 6:20 AM [facility] Methadone Screen Urine Negative Negative : < 300 ng/mL 12/16/2024 6:20 AM [facility] Fentanyl Screen Urine Positive(A) Negative : <1.5 ng/mL 12/16/2024 6:20 AM [facility] Comment:Positive urine fenta nyl screening results should be confirmed by another generally accepted non-immunological method such as gas chromatography or mass spectrometry. Urine URINE / Unknown Collection / Unknown 12/16/2024 5:53 AM CDT 12/16/2024 6:00 AM [facility] - 12/16/2024 6:[address] [facility] The Urine Toxicology Screening Panel does not screen for Propoxyphene, Meprobamate, Carisoprodol, Trazodone, zouv-jlo-dhgwmfu medications and/or volatiles (Acetone, Isopropanol, Methanol or Ethylene Glycol). Ethanol, Salicylate, Acetaminophen, Tricyclic Antidepressants and several therapeutic drugs may be individually assayed in serum or plasma specimen. Toxicology testing by the [facility] is an aid to medical diagnosis and treatment of patients. No documented chain of custody was maintained. Results are intended to be used for clinical purposes only. us Frank River MD LAB - URINE CHEMISTRY ORDE LUIZA Final Result Performing Organization Address City/[facility]/ZIP Co de Phone Number [facility] [address] [place] [address], [facility] [phone] * BLOOD TYPE VERIFICATION (12/15/2024 11:22 PM CDT) ABO Rh O POS 12/16/2024 12:01 AM CDT [facility] BLOOD BANK LAB Blood Bank BLOOD SPECIMEN / Unknown Venipuncture / Unknown 12/15/2024 11:22 PM CDT 12/15/2024 11:27 PM CDT Adis Gillis MD LAB - BLOOD BANK ORDERA BLES Final Result Performing Organization Address [facility] Co de Phone Number [facility] LAB [address] [place] [address], [facility] [phone] * CT CHEST ABDOMEN PELVIS W CONT [...] 6.Cholelithiasis > Dictated by Artem Crowder MD, (residential field manager). IPonce MD have personally reviewed and interpreted this examination/study. > Interpreting Provider: Ponce Segura MD on 12/16/2024 4:45 AM Narrative 12/16/2024 4:45 AM CDT PROCEDURE: CT CHEST ABDOMEN PELVIS W CONT, DATE/TIME OF EXAM: 12/15/2024 11:09 PM, LOCATION [facility] INDICATION: W19.XXXA: Fall, initial encounter COMPARISON: None. [...] CONT, DATE/TIME OF EXAM:12/15/2024 11:09 PM, LOCATION [facility] INDICATION: W19.XXXA: Fall, initial encounter COMPARISON: None. [...] 6.Cholelithiasis > Dictated by Artem Crowder MD, (residential field manager). Ponce Green MD have personally reviewed and [...] pelvis. Report dictated by Paul Landry MD, (Pediatric Nurse Practitioner). Casey Green MD have personally reviewed and interpreted this examination/study. > Interpreting Provider: Casey Smith MD on 12/16/2024 2:16 AM Narrative 12/16/2024 2:16 AM CDT PROCEDURE: CT HEAD WO CONTRAST, CT LUMBAR SPINE WO CONTRAST, CT THORACIC SPINE WO CONTRAST, CT CERVICAL SPINE WO CONTRAST, CT FACIAL BONES WO CONTRAST, DATE/TIME OF EXAM: 12/15/2024 11:09 PM, LOCATION [facility] INDICATION: W19.XXXA: Fall, initial encounter EXAMINATION: 1. [...] effect or midline shift is seen. The givesn-white matter differentiation is obscured by motion artifact. [...] DATE/TIME OF EXAM: 12/15/2024 11:09 PM, LOCATION [facility] INDICATION: W19.XXXA: Fall, initial encounter EXAMINATION: 1. [...] pelvis. Report dictated by Paul Landry MD, (Pediatric Nurse Practitioner). I, Casey Smith MD have personally reviewed [...] pelvis. Report dictated by Paul Landry MD, (Pediatric Nurse Practitioner). I, Casey Smith MD have personally reviewed and interpreted this examination/study. > Interpreting Provider: Casey Smith MD on 12/16/2024 2:16 AM Narrative 12/16/2024 2:16 AM CDT PROCEDURE: CT HEAD WO CONTRAST, CT LUMBAR SPINE WO CONTRAST, CT THORACIC SPINE WO CONTRAST, CT CERVICAL SPINE WO CONTRAST, CT FACIAL BONES WO CONTRAST, DATE/TIME OF EXAM: 12/15/2024 11:09 PM, LOCATION [facility] INDICATION: W19.XXXA: Fall, initial encounter EXAMINATION: 1. [...] DATE/TIME OF EXAM: 12/15/2024 11:09 PM, LOCATION [facility] INDICATION: W19.XXXA: Fall, initial encounter EXAMINATION: 1. [...] pelvis. Report dictated by Paul Landry MD, (Pediatric Nurse Practitioner). I, Casey Smith MD have personally reviewed [...] pelvis. Report dictated by Paul Landry MD, (Pediatric Nurse Practitioner). I, Casey Smith MD have personally reviewed and interpreted this examination/study. > Interpreting Provider: Casey Smith MD on 12/16/2024 2:16 AM Narrative 12/16/2024 2:16 AM CDT PROCEDURE: CT HEAD WO CONTRAST, CT LUMBAR SPINE WO CONTRAST, CT THORACIC SPINE WO CONTRAST, CT CERVICAL SPINE WO CONTRAST, CT FACIAL BONES WO CONTRAST, DATE/TIME OF EXAM: 12/15/2024 11:09 PM, LOCATION [facility] INDICATION: W19.XXXA: Fall, initial encounter EXAMINATION: 1. [...] DATE/TIME OF EXAM: 12/15/2024 11:09 PM, LOCATION [facility] INDICATION: W19.XXXA: Fall, initial encounter EXAMINATION: 1. [...] pelvis. Report dictated by Paul Landry MD, (Pediatric Nurse Practitioner). Casey Green MD have personally reviewed and [...] pelvis. Report dictated by Paul Landry MD, (Pediatric Nurse Practitioner). I, Casey Smith MD have personally reviewed and interpreted this examination/study. > Interpreting Provider: Casey Smith MD on 12/16/2024 2:16 AM Narrative 12/16/2024 2:16 AM CDT PROCEDURE: CT HEAD WO CONTRAST, CT LUMBAR SPINE WO CONTRAST, CT THORACIC SPINE WO CONTRAST, CT CERVICAL SPINE WO CONTRAST, CT FACIAL BONES WO CONTRAST, DATE/TIME OF EXAM: 12/15/2024 11:09 PM, LOCATION [facility] INDICATION: W19.XXXA: Fall, initial encounter EXAMINATION: 1. [...] DATE/TIME OF EXAM: 12/15/2024 11:09 PM, LOCATION [facility] INDICATION: W19.XXXA: Fall, initial encounter EXAMINATION: 1. [...] pelvis. Report dictated by Paul Landry MD, (Pediatric Nurse Practitioner). ICasey MD have personally reviewed and interpretedthis [...] identified. Report dictated by Paul Landry MD, (Pediatric Nurse Practitioner). Lori Green MD have personally reviewed and interpreted this examination/study. > Interpreting Provider: Lori Bernal MD on 12/16/2024 9:36 AM Narrative 12/16/2024 9:36 AM CDT PROCEDURE: XR PELVIS 1 OR 2VW, DATE/TIME OF EXAM: 12/15/2024 10:08 PM, LOCATION [facility] INDICATION: W19.XXXA: Fall, initial encounter COMPARISON: None. [...] DATE/TIME OF EXAM: 12/15/2024 10:08 PM, LOCATION [facility] INDICATION: W19.XXXA: Fall, initial encounter COMPARISON: None. FINDINGS: No acute fracture is identified. Minimal bilateral hip arthritis. The femoral heads appear well-seated within their respective acetabula. Degenerative changes of the symphysis pubis. Bone density and textureare normal. The sacroiliac joints are intact. Vascular calcifications. IMPRESSION: No acute fracture identified. Report dictated by Paul Landry MD, (Pediatric Nurse Practitioner). Lori Green MD have personally reviewed and interpreted this examination/study. > Interpreting Provider: Lori Bernal MD on 12/16/2024 9:36 AM us Frank River MD DIAGNOSTIC IMAGING ORDERAB LES Final Result * TEG 6 GLOBAL HEMOSTASIS W/ LYSIS (12/15/2024 10:06 PM CDT) Citrated Kaolin R (Reaction Time) 5.8 4.6 - 9.1 min 12/15/2024 11:15 PM CDT [facility] Citrated Kaolin LY30 (Lysis) 0.1 0.0 - 2.6 % 12/15/2024 11:15 PM CDT [facility] Citrated Functional Fibrinogen MA (Max Amplitude) 20.4 15.0 - 32.0 mm 12/15/2024 11:15 PM CDT [facility] Citrated RapidTEG MA (Max Amplitude) 65.2 52.0 - 70.0 mm 12/15/2024 11:15 PM CDT [facility] Blood BLOOD SPECIMEN / Unknown Venipuncture / Unknown 12/15/2024 10:06 PM CDT 12/15/2024 10:15 PM CDT us Frank River MD LAB - HEMATOLOGY ORDERABLE S Final Result [facility] [address] [place] [id number], [facility] [phone] * (ABNORMAL) TEG 6S PLATELET MAPPING (12/15/2024 10:06 PM CDT) TEGPLM (Max Amplitude) Koalin 64.7 53.0 - 68.0 mm 12/15/2024 11:05 PM CDT [facility] TEGPLM (Max Amplitude) ACTF 12.0 2.0 - 19.0 mm 12/15/2024 11:05 PM CDT [facility] TEGPLM (Max Amplitude) ADP 61.3 45.0 - 69.0 mm 12/15/2024 11:05 PM CDT [facility] TEGPLM (Max Amplitude) AA 56.0 51.0 - 71.0 mm 12/15/2024 11:05 PM [facility] TEGPLM %Inhibition ADP 6.5 0.0 - 17.0 % 12/15/2024 11:05 PM [facility] TEGPLM %Inhibition AA 16.5(H) 0.0 - 11.0 % 12/15/2024 11:05 PM [facility] TEGPLM %Aggregation ADP 93.5 83.0 - 100.0 % 12/15/2024 11:05 PM [facility] TEGPLM % Aggregation AA 83.5(L) 89.0 - 100.0 % 12/15/2024 11:05 PM [facility] Blood BLOOD SPECIMEN / Unknown Venipuncture / Unknown 12/15/2024 10:06 PM CDT 12/15/2024 10:15 PM CDT us Frank River MD LAB - HEMATOLOGY ORDERABLE S Final Result Performing Organization Address [facility] Co de Phone Number [facility] [address] [place] [address], [facility] [phone] * PT-INR [facility] (12/15/2024 10:06 PM CDT) PT 14.0 12.1 - 14.8 Seconds 12/15/2024 10:32 PM [facility] INR 1.1 See Comment 12/15/2024 10:32 PM [facility] Comment:The suggested therap eutic range for standard coumadin (warfarin) therapy is an INR of 2.0-3.0. For high-risk patients (Mechanical Mitral Valve Prosthesis, etc.), the suggested prophylactic therapeutic range is an INR of 2.5-3.5. Blood BLOOD SPECIMEN / Unknown Venipuncture / Unknown 12/15/2024 10:06 PM CDT 12/15/2024 10:08 PM CDT us Frank River MD LAB - COAGULATION ORDERABL ES Final Result [facility] [address] [place] [address], [place] [phone] * TYPE + SCREEN PANEL (12/15/2024 10:06 PM CDT) Antibody Screen NEG 10:56 PM CDT [facility] BLOOD BANK LAB ABO Rh O POS 12/15/2024 10:56 PM CDT [facility] BLOOD [facility] LAB Blood Bank BLOOD SPECIMEN / Unknown Venipuncture / Unknown 12/15/2024 10:06 PM CDT 12/15/2024 10:12 PM CDT us Frank River MD LAB - BLOOD BANK ORDERABLE S Final Result Performing Organization Address [facility] de Phone Number [facility] BLOOD B[facility] LAB [address] [place] [address], [place] [phone] * ALCOHOL ETHYL BLOOD (12/15/2024 10:06 PM CDT) Ethanol (mg/dL) <10 <10 mg/dL 10:38 PM CDT [facility] Ethanol Calculated (g/dL) <0.010 <=0.010 g/dL 12/15/2024 10:38 PM CDT [facility] Blood BLOOD SPECIMEN / Unknown Venipuncture / Unknown 12/15/2024 10:06 PM CDT 12/15/2024 10:11 PM CDT Narrative [facility] - 12/15/2024 10:38 PM CDT Ethanol Interp <10: None Detected. Depression of A&P TECHNICIAN: >100 mg/dl Potentially Critical: >250 mg/dl Potentially [...] CHEMISTRY ORDERABLES Final Result Performing Organization Address [facility]/ZIP Co de Phone Number [facility] [address] [place] [address], [place] [phone] from Last 3 Months Insurance [facility] MANAGED MEDICARE ADV Advance Directives * Full Code (Latest Code Status on File) Date Activated Date Inactivated Comments 12/16/2024 2:06 AM 12/21/2024 9:26 PM Care Teams Life Insurance Underwriter Relationship Specialty Start Date End Date Sancho Zavala MD [address] [place] [address] PCP - General Family Medicine 12/16/24
--- OUTSIDE RECORDS SUMMARY | 2025-03-03 17:41 | XMS_ITS | Referral Summary ---
Author Organization [place] [address] [address] [place] [phone] Care Team Providers Care Disc Pad Plate Filler Name Role Phone Sancho Zavala MD Primary Care Provider Encounters Date Type Department Care Team Description 01/30/2025 9:00 AM CDT Office Visit [facility] Medical [facility] Cardiology [address] [place] [address] [address] [place] [address] Shaun Benton MD S/P aortic valve replacement with bioprosthetic valve (Primary Dx); History of coronary artery bypass surgery; Persistent atrial fibrillation (HCC) 01/23/2025 2:00 PM CDT Ancillary Procedure [facility] Medical Group Cardiology at [address] [place] [address] Persistent atrial fibrillation (HCC) 01/16/2025 Anticoagulation Visit [facility] Cardiology at [address] [place] [address] Iona Bryan RN Atrial fibrillation, unspecified type (HCC) (Primary Dx) 01/15/2025 Telephone [facility] Cardiology [address] [place] [address] [address] [place] [address] Shaun Benton MD 01/14/2025 2:00 PM CDT Ancillary Procedure [facility] Medical Group Cardiology at [address] [place] [address] 01/14/2025 1:30 PM CDT Office Visit [facility] Medical Group Cardiology at [address] [place] [phone] Shaun Benton MD S/P aortic valve replacement with bioprosthetic valve (Primary Dx); History of coronary artery bypass surgery; Persistent atrial fibrillation (HCC); Other thrombophilia (HCC) 01/13/2025 Telephone [facility] Medical Group Cardiology [address] [place] [address] Shaun Benton MD from Last 3 Months Allergies No known active allergies Medications multivit-minera d-tkfk-vlxwhx (CENTRUM SILVER ULTRA WOMEN'S) tablet 0 0 [...] daily. 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 Gender Identity Not on file Sexual Orientation Not on file Last Filed Vital Signs Vital Sign Reading Time Taken Comments Blood Pressure 122/60 01/30/2025 8:59 AM CDT Pulse 59 01/30/2025 8:59 AM CDT Temperature - - Respiratory Rate 97 09/27/2024 11:06 AM PUBLIC HEALTH PROGRAM MANAGER Oxygen Saturation 96% 01/30/2025 8:59 AM CDT [...] PM CDT Narrative 01/23/2025 4:44 PM CDT [facility] Medical Group Cardiology [address], [place] [address] P:[phone] P:[phone] Echocardiographic Report Patient Name: PATRICIO AGUIRRE A : 1940 Study Date: 01/23/2025 1:58:36 PM Gender: F Range Ecologist: SAMANTHA Location: [facility] Ref Provider: SHAUN BENTON [...] FINDINGS: Interpretation Site: Exam was interpreted at [facility]. Left Ventricle: Normal left ventricular size. [...] Procedure Note Marvin Alvarado MD - 01/23/2025 [facility] Medical Group Cardiology [address], [address], [place] [address] P:[phone] P:[phone] Echocardiographic Report Patient Name: PATRICIO AGUIRRE A : 1940 Study Date: 01/23/2025 1:58:36 PM Gender: F Range Ecologist: SAMANTHA Location: [facility] Ref Provider: SHAUN BENTON [...] FINDINGS: Interpretation Site: Exam was interpreted at [facility]. Left Ventricle: Normal left ventricular size. [...] phy Narrative 01/30/2025 7:01 AM CDT AMBULATORY WARDROBE ATTENDANT REPORT Patient Name: Patricio Aguirre Date of [...] was used to complete this document, therefore, poker machine attendant variances may occur. Shaun Benton MD [facility] 01/30/25 Shaun Benton MD CV CARDIAC [...] Most Recently Relevant to Health Maintenance Insurance [facility] MEDICARE ADVANTAGE Care Teams Disc Pad Plate Filler Relationship Specialty Start Date End Date Sancho Zavala MD [address] [place] [id number] PCP - General Family Medicine 01/14/25
--- OUTSIDE RECORDS SUMMARY | 2025-03-03 17:41 | XMS_ITS | Clinical Summary ---
Author Organization [facility] Address [address] [place] [address] Care Team Providers Care Scale Balancer Name Role Phone Kathleen Vázquez MD Primary Care Provider [phone] Social History Tobacco Use Types Packs/Day Years [...] age to complete this topic Care Teams Scale Balancer Relationship Specialty Start Date End Date Kathleen Vázquez MD PCP - General 10/27/14
[2025-03-03 17:44] LABS: Hematocrit 39.0 % (37.0-47.0); Hemoglobin 12.4 g/dL (12.0-15.0); Immature Granulocyte Percent A 0.4 % (0-0.5); Lymphocytes Absolute Auto 0.92 K/mm3 (0.9-3.2); Mean Corpuscular HGB Conc 31.8 g/dl (32-36); Mean Corpuscular Hemoglobin 27.5 pg (26-34); Mean Corpuscular Volume 86.5 fl (80-100); Nucleated Red Blood Cells Absolute Auto 0.000 K/mm3 (0.0-0.012); Nucleated Red Blood Cells Perc 0.0 % (0.0-0.2); Platelet Count Result 217 k/mm3 (150-375); Red Blood Count 4.51 M/mm3 (4.2-5.4); White Blood Count 9.8 K/mm3 (4.5-10.0)
[2025-03-03 17:53] LABS: Alanine Aminotransferase 24 U/L (6-35); Albumin Level 4.2 g/dL (3.5-5.1); Alkaline Phosphatase 73 U/L (38-126); Anion Gap 12 mmol/L (4-12); Aspartate Amino Transferase 34 U/L (14-36); Bilirubin,Total 1.6 mg/dL (0.2-1.3); Blood Urea Nitrogen 31 mg/dL (7-17); Calcium 9.6 mg/dL (8.4-10.2); Carbon Dioxide 23 mmol/L (22-30); Chloride 102 mmol/L (98-107); Estimated CRCL calculation 35 ml/min; Estimated Glomerular Filt Rate 48; Glucose 137 mg/dL (65-110); Potassium 4.8 mmol/L (3.4-5.0); Sodium 137 mmol/L (137-145); Total Protein 8.0 g/dL (6.3-8.2)
[2025-03-03 18:07] LABS: NT Pro B Type Natriuretic Pept 2890 pg/mL (19.9-100); Troponin I 0.041 ng/mL (0.000-0.034)
[2025-03-03] MEDS: dilTIAZem 100 MG/100 ML 100 MG/100 ML BAG IV CONT (19:24)
--- NOTE | 2025-03-03 19:26 | PC.NURSE ---
rn double check Diltiazem gtt - Patricia SHAH
--- NOTE | 2025-03-03 19:32 | ADMGEN ---
This patient, Yolanda Aguirre, was admitted to IMU Room 202-01 via bed with one tech, on a diltiazem drip going at 5mg/hr, and no issues. Patient/family oriented to hospital policies and general routines including ID bracelet, bed and alarms, visiting hours, pain management, procedures, bathroom and other care routines, personal items, smoking policy, room service/diet, and visiting hours. Information on how to activate the Rapid Response Team has been discussed. Patient/Family are encouraged to report perceived risks to care and to ask questions if they do not understand what they are told or what they should do.
[2025-03-03 19:48] LABS: Add Urine Microscopic? YES; Appearance Urine Cloudy (Clear); Glucose Urine UA Negative (Negative); Leukocyte Esterase Ur 2+ LEU/UL (Negative); Nitrate Urine Negative (Negative); Specific Grav Ur 1.013 (1.001-1.035)
[2025-03-03 19:54] LABS: Magnesium 1.4 mg/dL (1.6-2.3)
[2025-03-03 20:59] LABS: Troponin I 0.294 ng/mL (0.000-0.034)
[2025-03-03] MEDS: cefTRIAXone 1 GM in SODIUM CHLORIDE 0.9% IV 50 ML 100 ML IVPB (21:11)
--- NOTE | 2025-03-03 21:12 | PM.IMHP ---
H&P: HPI History of Present Illness Date/Time: 03/03/25 21:12 Chief Complaint: Jittery and short of breath Narrative: Loquacious and pleasant 84-year-old female with a past medical history of coronary artery disease status post CABG, bioprosthetic aortic valve replacement, bladder mass and recent fall 11/2024 with intercranial hemorrhage no longer on Eliquis who presented to the ER after waking up from a nap and feeling severely chilled and shaking. The patient reports that she then became anxious after she was shaking and did have some shortness of breath. On further questioning she does admit to some intermittent shortness of breath for last couple of days. She is having a cough that occurred after the initiation of shortness of breath today. She reports that her cough has resolved since she is admitted to the hospital. She denies any chest pain or sensation of palpitations. She has not had any nausea or vomiting. She denies any orthopnea or lower extremity swelling. She states that she was only recently diagnosed with AFib at outpatient provider's office. She was told at that time to increase her metoprolol from 12.5 mg b.i.d. to 12.5 mg in the morning and 25 mg in the evening. She has been taking her medications as directed. She was recently taken off of Eliquis due to a subdural hematoma after she fell off the porch. Patient was treated with 2 doses of IV Cardizem in the ER but heart rate remained elevated. And she was started on Cardizem drip and admitted to the IMU. The patient states that she was recently diagnosed with a bladder mass and is supposed to follow-up outpatient with Urology. Her procedure was post julieta in last week but her urine was suspicious for UTI that time. The urologist since the patient's urine for culture but she was never contacted as to the culture results. She denies any increased urinary frequency urgency or hematuria. Review of Systems Review of Systems: 12 systems were reviewed with pertinent positives and negatives per HPI. Except as documented in the HPI, all other systems were reviewed and are negative. [facility] Past Medical History Medical History (Updated 03/03/25 @ 21:41 by Angelica Pompa DO) Atrial fibrillation Eczema Hiatal hernia Bicuspid aortic valve SAH (subarachnoid hemorrhage) (12/15/24) Pneumothorax Osteopenia Mixed hyperlipidemia Former tobacco use Vitamin D deficiency, unspecified Stable angina Ischemic cardiomyopathy Hx of myocardial infarction 2014 CKD (chronic kidney disease) stage 3, GFR 30-59 ml/min Benign essential HTN Major depressive disorder, recurrent, moderate Prediabetes CAD (coronary artery disease) Surgical History Surgical History (Updated 03/03/25 @ 21:38 by Angelica Pompa DO) History of two vessel coronary artery bypass graft (03/25/15) With bypass to the LAD and diagonal at [facility] Status post transcatheter aortic valve replacement (TAVR) using bioprosthesis (03/25/15) [facility] History of right coronary artery stent placement (2014) [facility] Dr. Benton Family History Family History Father Family history of heart disease in male family member before age 55 Family history of coronary artery disease, Onset Age: 79 Hypertension, Onset Age: 79 Myocardial infarction Diabetes mellitus Mother Family history of heart disease in male family member before age 55 Myocardial infarction Sibling No problems noted. Grandparent Family history of heart disease in male family member before age 55 Social History Social History Social History: Smoking packs per day: 0.5 Smoking cigarettes per day: 10.0 Years smoked: 50 Smoking pack-years: 25.00 Smoking status: Former smoker Tobacco type: cigarettes Second hand tobacco smoke exposure: No Smoking end date: 03/03/20 Alcohol intake: never Substance use: never Substance use type: does not use Do You Feel Safe in your Home?: Yes Lack of Transportation: No Lack of Food: Never True Current Housing: I Have Housing Concerned About Future Housing: No Difficulty Paying Gas/Electric Bills: No Difficulty Paying for Meds: YES Currently Unemployed: No Education: High School Diploma/GED Difficulty w/ Childcare or Family Care: No Living arrangements: with family Occupation/Education: retired Gender identity (if verbalized by the patient): Female Sexual Orientation (if Verbalized by the Patient): Straight or Heterosexual Spiritual care concerns: No Meds Home Medications and Allergies Home Medications ?Medication ?Instructions ?Recorded ?Confirmed ?Type aspirin 81 mg tablet,delayed 81 mg PO DAILY 05/18/20 03/03/25 History release (Adult Low Dose Aspirin) lczguuor-yuesemj-myoa-lutein tablet 1 tablet PO DAILY 05/18/20 03/03/25 History nitroglycerin 0.4 mg sublingual 0.4 mg sublingual Q5M PRN chest 05/18/20 03/03/25 History tablet pain omega-3 fatty acids 1,000 mg 1,000 mg PO .Q12HR 05/18/20 03/03/25 History capsule (Fish Oil Concentrate) atorvastatin 20 mg tablet 20 mg PO DAILY #100 tabs 08/21/24 03/03/25 Rx alendronate 70 mg tablet 70 mg PO WEEKLY 03/03/25 03/03/25 History lisinopril 10 mg tablet 10 mg PO .Q12HR 03/03/25 03/03/25 History metoprolol tartrate 25 mg tablet 25 mg PO Q12H 03/03/25 03/03/25 History sertraline 25 mg tablet 50 mg PO DAILY 03/03/25 03/03/25 History Allergies Allergy/AdvReac Type Severity Reaction Status Date / Time No Known Allergies Allergy Mild Verified 03/03/25 17:03 Vital Signs Vital Signs - 24 hr 03/03/25 16:58 03/03/25 17:30 03/03/25 17:30 Temperature 98.9 F Pulse Rate 92 166 H Respiratory Rate 22 H 33 H Blood Pressure 138/73 121/81 Pulse Oximetry 96 97 Oxygen Delivery Room Air Room Air 03/03/25 17:45 03/03/25 19:01 03/03/25 19:24 Temperature Pulse Rate 135 H 119 H 110 H Respiratory Rate 27 H 20 Blood Pressure 114/79 100/66 100/66 Pulse Oximetry 98 96 Oxygen Delivery 03/03/25 19:40 Temperature 98.5 F Pulse Rate 127 H Respiratory Rate 22 H Blood Pressure 95/69 L Pulse Oximetry 96 Oxygen Delivery Exam Narrative: Weight 74.5 kg BMI 28.2 H&P: Results Labs Labs: Laboratory Tests 03/03/25 17:38 03/03/25 17:38 03/03/25 03/03/25 03/03/25 17:37 17:38 17:55 WBC 9.8 RBC 4.51 Hgb 12.4 Hct 39.0 MCV 86.5 MCH 27.5 MCHC 31.8 L RDW 14.1 Plt Count 217 MPV 10.9 H Immature Gran % (Auto) 0.4 Neut % (Auto) 85.7 H Lymph % (Auto) 9.4 L Phelps % (Auto) 3.2 Eos % (Auto) 0.7 Baso % (Auto) 0.6 Lymph # (Auto) 0.92 Phelps # (Auto) 0.3 Eos # (Auto) 0.1 Baso # (Auto) 0.1 Abs Immat Gran (auto) 0.04 H Absolute Neuts (auto) 8.4 H Absolute Nucleated RBC 0.000 Nucleated RBC % 0.0 Sodium 137 Potassium 4.8 Chloride 102 Carbon Dioxide 23 Anion Gap 12 BUN 31 H Creatinine 1.08 H Estim Creat Clear Calc 35 Estimated GFR 48 L Glucose 137 H Lactic Acid 2.3 H Calcium 9.6 Magnesium 1.4 L Total Bilirubin 1.6 H AST 34 ALT 24 Alkaline Phosphatase 73 Troponin I 0.041 H* NT-Pro-B Natriuret Pep 2890 H Total Protein 8.0 Albumin 4.2 Urine Color Urine Appearance Urine pH Ur Specific Paguate Urine Protein Urine Glucose (UA) Urine Ketones Ur Blood (Man) Urine Nitrate Urine Bilirubin Urine Urobilinogen Leukocyte Esterase Rfl Urine RBC Urine WBC Ur Squamous Epith Cells Urine Bacteria Urine Casts 03/03/25 03/03/25 19:21 20:18 WBC RBC Hgb Hct MCV MCH MCHC RDW Plt Count MPV Immature Gran % (Auto) Neut % (Auto) Lymph % (Auto) Phelps % (Auto) Eos % (Auto) Baso % (Auto) Lymph # (Auto) Phelps # (Auto) Eos # (Auto) Baso # (Auto) Abs Immat Gran (auto) Absolute Neuts (auto) Absolute Nucleated RBC Nucleated RBC % Sodium Potassium Chloride Carbon Dioxide Anion Gap BUN Creatinine Estim Creat Clear Calc Estimated GFR Glucose Lactic Acid 1.7 Calcium Magnesium Total Bilirubin AST ALT Alkaline Phosphatase Troponin I 0.294 H* D NT-Pro-B Natriuret Pep Total Protein Albumin Urine Color Yellow Urine Appearance Cloudy H Urine pH 6.5 Ur Specific Paguate 1.013 Urine Protein 2+ H Urine Glucose (UA) Negative Urine Ketones Negative Ur Blood (Man) 1+ H Urine Nitrate Negative Urine Bilirubin Negative Urine Urobilinogen 1.0 Leukocyte Esterase Rfl 2+ H Urine RBC 6-10 H Urine WBC >100 H Ur Squamous Epith Cells None seen Urine Bacteria 4+ Urine Casts 3-5 Impressions Chest X-Ray 03/03/25 17:29 IMPRESSION: No focal infiltrate or effusion. [id number] 17:09:04 Measurements Intervals Elsie Rate: 150 P: 0 FL: 0 QRS: 16 QRSD: 86 T: 31 QT: 276 QTc: 436 Interpretive Statements ATRIAL FIBRILLATION WITH RAPID VENTRICULAR RESPONSE DELAYED PRECORDIAL R/S TRANSITION BORDERLINE ST-T WAVE ABNORMALITY- INF/HIGH LAT LEADS ABNORMAL ECG No previous ECG available for comparison Assessment and Plan Assessment and plan (1) Atrial fibrillation with RVR: Code(s): I48.91 - Unspecified atrial fibrillation Status: Acute (2) Elevated troponin I level: Code(s): R79.89 - Other specified abnormal findings of blood chemistry Status: Acute Plan Patient presented with AFib RVR and was on a Cardizem drip. Initially held the patient's home evening metoprolol as her blood pressures were soft while on Cardizem drip. But by the time I had finished my evaluation with the patient her heart rate had improved down into the 70s. Her blood pressures had also improved with improvement in her heart rate. Subsequently Cardizem drip was discontinued and metoprolol was resumed. The patient's lisinopril was held for the evening due to her soft blood pressures. The patient is not on anticoagulation due to her recent subarachnoid hemorrhage. The patient does have an elevated troponin due to demand ischemia from AFib RVR. Will not start heparin drip due to recent brain bleed. Cardiology was consulted from the ER. Patient does have an abnormal urinalysis but she denies any dysuria, hematuria, changes in urinary frequency or urinary urgency. Patient was started on empiric antibiotic therapy in the ER. Will attempt to obtain urine culture results from urologist office. Urine culture here is also pending. Quality VTE Prophylaxis VTE prophylaxis: mechanical ordered (SCDs) Hospitalist MIPS Advance Care Plan I have confirmed that the patient's Advanced Care Plan is present, code status is documented, or surrogate decision maker is listed in patient medical record.: Yes Medication Reconciliation I have utilized all available resources to obtain, update and review the patients current medications (includes all prescriptions, OTC, herbals, cannabis, and nutritional supplements).: Yes
[2025-03-03] MEDS: OMEGA 3 POLYUNSAT FATTY ACIDS 1 GM CAP PO (22:06)
[2025-03-03] MEDS: MAGNESIUM SULF 4 GM/WATER100ML 4 GM/100 ML BAG IVPB (22:07)
[2025-03-04] VITALS (19 sets, daily range): BP systolic 93–120; BP diastolic 40–70; PULSE 70–114; RESP 16–20; TEMP 36.6–37.1; O2SAT 96–100
--- NOTE | 2025-03-04 | ECHO_ITS ---
Patient Info Name: Yolanda Aguirre Age: 84 years : 1940 Gender: Female Ht: 64 in Wt: 164 lbs BSA: 1.85 m2 HR: 87 bpm BP: 120 / 57 mmHg Heart Rhythm: Atrial Fibrillation Technical Quality: Good Exam Date: 03/04/2025 2:52 PM Patient Status: I Admit Date: 03/04/2025 Exam Type: CA echo doppler color flow Complete two-dimensional, color flow and Doppler transthoracic echocardiogram is performed. Staff Referring Physician: Jeffrey Ash Lehr Tender: Angie Leiva Attending Provider: Monty Solano Summary 1. Complete two-dimensional, color flow and Doppler transthoracic echocardiogram is performed. 2. Left ventricular systolic function is normal, estimated at 55-60. 3. Left atrial chamber dimension is mildly enlarged. 4. There is mild mitral valve calcification. 5. There is mild mitral valve regurgitation. 6. There is moderate tricuspid valve regurgitation. 7. Mild pulmonary hypertension, estimated pulmonary arterial systolic pressure is 43 mmHg. Left Ventricle Left ventricular chamber dimension is normal. Left ventricular systolic function is normal, estimated at 55-60. There is no increased left ventricular wall thickness. Left ventricular septal wall motion is normal. The left ventricular diastolic function is abnormal. Right Ventricle Right ventricular chamber dimension is normal. Right ventricular systolic function is normal. Left Atria Left atrial chamber dimension is mildly enlarged. Right Atria Right atrial chamber dimension is normal. Aortic Valve The aortic valve is trileaflet. There is no aortic valve sclerosis. There is no aortic valve stenosis. There is no aortic valve regurgitation. Pulmonic Valve The pulmonic valve is normal. There is no pulmonic valve stenosis. There is mild pulmonic regurgitation. Mitral Valve The mitral valve has normal leaflets. There is no mitral valve stenosis. There is mild mitral valve regurgitation. There is mild mitral valve calcification. Tricuspid Valve The tricuspid valve leaflets are normal. There is no significant tricuspid valve stenosis. There is moderate tricuspid valve regurgitation. Mild pulmonary hypertension, estimated pulmonary arterial systolic pressure is 43 mmHg. Pericardium/Pleural The pericardium appears normal. There is no pericardial effusion. Inferior Vena Cava Normal inferior vena cava with >50% collapse upon inspiration consistent with normal right atrial pressure, 5 mmHg. Aorta The aortic root size at the sinus of Valsalva is normal. The prox ascending aorta size is normal. Left Ventricular Outflow Tract Name Value Normal LVOT 2D LVOT Diameter 2.0 cm LVOT Doppler LVOT Peak Velocity 171 cm/s LVOT Peak Gradient 8 mmHg LVOT Mean Gradient 5 mmHg LVOT VTI 37 cm LVOT VTI/AV VTI Ratio 0.8 LVOT Stroke Volume 116 ml LVOT CO 7.8 l/min LVOT CI 4.2 l/min/m2 Pulmonic Valve Name Value Normal PV Doppler PV Peak Velocity 139 cm/s PV Peak Gradient 8 mmHg PV Regurgitation Doppler MN Peak End Diastolic Velocity 148 cm/s Mitral Valve Name Value Normal MV Diastolic Function MV E Peak Velocity 137 cm/s MV A Peak Velocity 55 cm/s MV E/A 2.5 MV Decel Time (PW) 131 ms MV Annular TDI MV E/e' (Septal) 19.7 MV E/e' (Lateral) 14.2 MV E/e' (Average) 17.0 Tricuspid Valve Name Value Normal TV Regurgitation Doppler TR Peak Velocity 308 cm/s TR Peak Gradient 38 mmHg Estimated PAP/RSVP RA Pressure 5 mmHg <=5 PA Systolic Pressure 43 mmHg <36 RV Systolic Pressure 43 mmHg <36 TV Annular TDI TV Lateral Jada s' Velocity 7.3 cm/s >=9.5 Aortic Valve Name Value Normal AV Doppler AV Peak Velocity 214 cm/s AV Peak Gradient 14 mmHg AV Mean Gradient 8 mmHg AV VTI 47 cm AV Area (Cont Eq VTI) 2.5 cm2 >=3.0 AV Area (Cont Eq Blu) 2.5 cm2 AV DI (Blu) 0.80 AV Regurgitation 2D LVOT Area 3.2 cm2 Ventricles Name Value Normal LV Dimensions 2D/MM IVS Diastolic Thickness (2D) 0.9 cm 0.6-1.0 LVID Diastole (2D) 4.9 cm 3.8-5.2 LVIW Diastolic Thickness (2D) 1.3 cm 0.6-0.9 LVID Systole (2D) 3.2 cm 2.2-3.5 LVOT Diameter 2.0 cm LV Mass (2D Cubed) 210.48 g 67.00-162.00 LV Mass Index (2D Cubed) 114 g/m2 43-95 Relative Wall Thickness (2D) 0.53 <=0.42 LV Fractional Shortening/Ejection Fraction 2D/MM LV Fractional Shortening (2D) 35 % 27-45 LV EF (2D Teichholz) 63 % LV Diastolic Volume (4C MOD) 73 ml LV EF (4C MOD) 54 % LV Diastolic Volume (2C MOD) 90 ml LV EF (2C MOD) 58 % LV Diastolic Volume (BP MOD) 84 ml 46-106 LV Diastolic Volume Index (BP MOD) 45 ml/m2 29-61 LV Systolic Volume (BP MOD) 37 ml 14-42 LV Systolic Volume Index (BP MOD) 20 ml/m2 8-24 LV EF (BP MOD) 56 % 54-74 LV Diastolic Length (4C) 7.2 cm LV Systolic Length (4C) 6.1 cm LV Stroke Volume (4C MOD) 39 ml Atria Name Value Normal LA Dimensions LA Volume (4C A-L) 80 ml LA Volume (BP A-L) 66 ml Report Signatures
[2025-03-04 01:03] LABS: Troponin I 0.507 ng/mL (0.000-0.034)
[2025-03-04 04:45] LABS: Anion Gap 7 mmol/L (4-12); Blood Urea Nitrogen 38 mg/dL (7-17); Calcium 9.3 mg/dL (8.4-10.2); Carbon Dioxide 27 mmol/L (22-30); Chloride 98 mmol/L (98-107); Estimated CRCL calculation 27 ml/min; Estimated Glomerular Filt Rate 36; Glucose 154 mg/dL (65-110); Magnesium 3.4 mg/dL (1.6-2.3); Potassium 4.7 mmol/L (3.4-5.0); Sodium 132 mmol/L (137-145)
[2025-03-04] MEDS: METOPROLOL TARTRATE 25 MG TABLET PO ×2 (08:30→20:03)
[2025-03-04] MEDS: ATORVASTATIN 20 MG TABLET PO (08:30)
[2025-03-04] MEDS: SERTRALINE HCL 50 MG TABLET PO (08:30)
[2025-03-04] MEDS: OMEGA 3 POLYUNSAT FATTY ACIDS 1 GM CAP PO ×2 (08:30→20:03)
--- NOTE | 2025-03-04 08:30 | P.CONCA_ITS ---
Assessment and Plan Assessment and plan (1) Elevated troponin I level: Code(s): R79.89 - Other specified abnormal findings of blood chemistry Status: Acute (2) Atrial fibrillation with RVR: Code(s): I48.91 - Unspecified atrial fibrillation Status: Acute Assessment and Plan: -AFib with RVR -history of subdural hematoma after a fall November 2024 -urinary bladder mass with recent diagnosis -history of CABG and AVR 2014 -previous history of stenting prior to CABG -hypertension Plan -in regards to AFib with RVR, agree with increasing metoprolol to 25 mg b.i.d.. At home she used to take 12.5 mg in the morning and 25 mg at night. I will hold lisinopril to allow room in blood pressure to titrate up beta-senia. She is not candidate for anticoagulation given recent subdural hematoma after fall. She stated also she does not want to take Eliquis because it is very expensive. Explained to the patient option for left atrial appendage occlusion device and she wants to think about it. -in regards to troponin elevation, patient has a history of CABG 2014 and prior to that she did have stenting. Obtain echocardiogram to assess cardiac structure and function.. Continue aspirin. Continue beta-senia. -regards to history of AVR, obtain echocardiogram to assess. Continue aspirin -regards to UTI continue ceftriaxone. --regards to urinary bladder mass follow-up with urology. -gastro hypertension, blood pressure is running soft. Hold lisinopril. Continue metoprolol. History of Present Illness History of Present Illness Consult date/time: Date of service 03/04/25 08:30 Requesting physician: Frank Bird MD Consult reason: atrial fibrillation and Other (Elevated troponins) Reason For Visit: Afib with RVR Narrative: This is a 84-year-old female with history of hypertension, hyperlipidemia, depression, coronary artery disease status post CABG, bioprosthetic aortic valve replacement, bladder mass and recent fall 11/2024 with intercranial hemorrhage no longer on Eliquis who presented to the ER after waking up from a nap and feeling severely chilled and shaking. The patient reports that she then became anxious after she was shaking and did have some shortness of breath. On further questioning she does admit to some intermittent shortness of breath for last couple of days. S denies chest pain, lower extremity edema, palpitations. She states that she was only recently diagnosed with AFib at outpatient provider's office. She was told at that time to increase her metoprolol from 12.5 mg b.i.d. to 12.5 mg in the morning and 25 mg in the evening. She has been taking her medications as directed. She was recently taken off of Eliquis due to a subdural hematoma after she fell off the porch. She stated Eliquis was too expensive and she does not want to take it. Patient was treated with 2 doses of IV Cardizem in the ER but heart rate remained elevated. And she was started on Cardizem drip and admitted to the IMU. The patient states that she was recently diagnosed with a bladder mass and is supposed to follow-up outpatient with Urology. Her procedure was post julieta in last week but her urine was suspicious for UTI that time. The urologist since the patient's urine for culture but she was never contacted as to the culture results. She denies any increased urinary frequency urgency or hematuria. Apparently her blood pressure dropped and lisinopril was held. She was transitioned from Cardizem IV to p.o. metoprolol. Today her heart rate 70s to 80s beats per minute. Troponin 0.02, peaked at 0.5 creatinine 1, brain atretic peptide 2900. EKG reviewed and was once again shows AFib with RVR and minimal ST depression. Chest x-ray reviewed and was 1 central unremarkable. Review of Systems 2 Constitutional: Comments: Chills Eyes: Comments: No blurred vision ENT: Comments: No runny nose Cardiovascular: Comments: Denies chest pain. Admits to some shortness of breath. Denies any extremity edema Respiratory: Comments: Shortness of breath and some cough Gastrointestinal: Comments: Denies nausea, vomiting Genitourinary: Comments: Denies dysuria Musculoskeletal: Comments: Denies joint pain Integumentary/Breasts: Comments: Denies skin rash Neurologic: Comments: Denies headaches. Psychiatric: Comments: No depression Endocrine: Comments: Denies polyuria Hematologic/Lymphatic: Comments: Denies bruising Allergic/Immunologic: Allergic/Immunologic: Denies lip swelling Comments: [facility] Past Medical History Medical History Atrial fibrillation Eczema Hiatal hernia Bicuspid aortic valve SAH (subarachnoid hemorrhage) (12/15/24) Pneumothorax Osteopenia Mixed hyperlipidemia Former tobacco use Vitamin D deficiency, unspecified Stable angina Ischemic cardiomyopathy Hx of myocardial infarction 2014 CKD (chronic kidney disease) stage 3, GFR 30-59 ml/min Benign essential HTN Major depressive disorder, recurrent, moderate Prediabetes CAD (coronary artery disease) Surgical History Surgical History History of two vessel coronary artery bypass graft (03/25/15) With bypass to the LAD and diagonal at [facility] Status post transcatheter aortic valve replacement (TAVR) using bioprosthesis (03/25/15) [facility] History of right coronary artery stent placement (2014) [facility] Dr. [place] Family History Family History Father Family history of heart disease in male family member before age 55 Family history of coronary artery disease, Onset Age: 79 Hypertension, Onset Age: 79 Myocardial infarction Diabetes mellitus Mother Family history of heart disease in male family member before age 55 Myocardial infarction Sibling No problems noted. Grandparent Family history of heart disease in male family member before age 55 Social History Social History Social History: Smoking packs per day: 0.5 Smoking cigarettes per day: 10.0 Years smoked: 50 Smoking pack-years: 25.00 Smoking status: Former smoker Tobacco type: cigarettes Second hand tobacco smoke exposure: No Smoking end date: 03/03/20 Alcohol intake: never Substance use: never Substance use type: does not use Do You Feel Safe in your Home?: Yes Lack of Transportation: No Lack of Food: Never True Current Housing: I Have Housing Concerned About Future Housing: No Difficulty Paying Gas/Electric Bills: No Difficulty Paying for Meds: YES Currently Unemployed: No Education: High School Diploma/GED Difficulty w/ Childcare or Family Care: No Living arrangements: with family Occupation/Education: retired Gender identity (if verbalized by the patient): Female Sexual Orientation (if Verbalized by the Patient): Straight or Heterosexual Spiritual care concerns: No Meds Home Medications and Allergies Home Medications ?Medication ?Instructions ?Recorded ?Confirmed ?Type aspirin 81 mg tablet,delayed 81 mg PO DAILY 05/18/20 03/03/25 History release (Adult Low Dose Aspirin) ampnlckz-[id number]-ygur-lutein tablet 1 tablet PO DAILY 05/18/20 03/03/25 History nitroglycerin 0.4 mg sublingual 0.4 mg sublingual Q5M PRN chest 05/18/20 03/03/25 History tablet pain omega-3 fatty acids 1,000 mg 1,000 mg PO .Q12HR 05/18/20 03/03/25 History capsule (Fish Oil Concentrate) atorvastatin 20 mg tablet 20 mg PO DAILY #100 tabs 08/21/24 03/03/25 Rx alendronate 70 mg tablet 70 mg PO WEEKLY 03/03/25 03/03/25 History lisinopril 10 mg tablet 10 mg PO .Q12HR 03/03/25 03/03/25 History metoprolol tartrate 25 mg tablet 25 mg PO Q12H 03/03/25 03/03/25 History sertraline 25 mg tablet 50 mg PO DAILY 03/03/25 03/03/25 History Allergies Allergy/AdvReac Type Severity Reaction Status Date / Time No Known Allergies Allergy Mild Verified 03/03/25 17:03 Vital Signs Vital Signs - 24 hr 03/03/25 16:58 03/03/25 17:30 03/03/25 17:30 Temperature 37.2 C Pulse Rate 92 166 H Respiratory Rate 22 H 33 H Blood Pressure 138/73 121/81 Pulse Oximetry 96 97 Oxygen Delivery Room Air Room Air 03/03/25 17:45 03/03/25 19:01 03/03/25 19:24 Temperature Pulse Rate 135 H 119 H 110 H Respiratory Rate 27 H 20 Blood Pressure 114/79 100/66 100/66 Pulse Oximetry 98 96 Oxygen Delivery 03/03/25 19:40 03/03/25 20:00 03/03/25 20:00 Temperature 36.9 C Pulse Rate 127 H 113 H 110 H Respiratory Rate 22 H Blood Pressure 95/69 L 95/69 L Pulse Oximetry 96 Oxygen Delivery 03/03/25 21:45 03/03/25 22:00 03/03/25 22:00 Temperature 37.1 C Pulse Rate 103 H 98 Respiratory Rate 18 Blood Pressure 94/56 L 94/56 L Pulse Oximetry 97 96 Oxygen Delivery Autopap 03/03/25 22:00 03/04/25 00:00 03/04/25 00:00 Temperature 37.1 C Pulse Rate 98 84 76 Respiratory Rate 20 Blood Pressure 98/54 L Pulse Oximetry 98 Oxygen Delivery 03/04/25 00:00 03/04/25 01:59 03/04/25 02:00 Temperature 36.9 C Pulse Rate 75 76 87 Respiratory Rate 18 Blood Pressure 98/54 L 99/45 L Pulse Oximetry 98 Oxygen Delivery 03/04/25 02:01 03/04/25 04:00 03/04/25 04:00 Temperature 36.6 C Pulse Rate 76 70 70 Respiratory Rate 16 Blood Pressure 98/54 L 93/49 L 93/49 L Pulse Oximetry 98 Oxygen Delivery 03/04/25 04:00 03/04/25 06:00 03/04/25 06:00 Temperature Pulse Rate 77 91 77 Respiratory Rate 18 Blood Pressure 105/55 L Pulse Oximetry 98 Oxygen Delivery 03/04/25 06:00 03/04/25 07:32 Temperature 36.6 C Pulse Rate 77 83 Respiratory Rate 18 Blood Pressure 105/55 L 100/40 L Pulse Oximetry 100 Oxygen Delivery Exam 2 Const: General: no acute distress HENMT: Face/Nose/Sinus: no epistaxis Eyes: Sclera: sclerae normal Neck: Neck: supple Lymphatic: lymphadenopathy not noted Resp: Auscultation: no crackles, no rales and no wheezes Cardio: Rhythm: abnormal rhythm Heart sounds: no murmurs GI: GI Palp: Yes Soft to palpation and No Guarding due to palpation present (GI) Skin: General skin exam: normal color and no erythema Neuro: Speech: normal speech Extrem: General: no edema Psych: Mental Status: mental status grossly normal Results Labs and Meds 03/03/25 17:38 03/04/25 03:27 Lab results: Cardiac Enzymes 03/03/25 03/03/25 03/04/25 Range/Units 17:38 20:18 00:15 AST 34 (14-36) U/L Troponin I 0.041 H* 0.294 H* D 0.507 H* D (0.000-0.034) ng/mL CBC 03/03/25 Range/Units 17:38 WBC 9.8 (4.5-10.0) K/mm3 RBC 4.51 (4.2-5.4) M/mm3 Hgb 12.4 (12.0-15.0) g/dL Hct 39.0 (37.0-47.0) % Plt Count 217 (150-375) k/mm3 Lymph # (Auto) 0.92 (0.9-3.2) K/mm3 [place] # (Auto) 0.3 (0.1-0.6) K/mm3 Eos # (Auto) 0.1 (0-0.3) K/mm3 Baso # (Auto) 0.1 (0.0-0.1) K/mm3 Comprehensive Metabolic Panel 03/03/25 03/04/25 Range/Units 17:38 03:27 Sodium 137 132 L (137-145) mmol/L Potassium 4.8 4.7 (3.4-5.0) mmol/L Chloride 102 98 (98-107) mmol/L Carbon Dioxide 23 27 (22-30) mmol/L BUN 31 H 38 H (7-17) mg/dL Creatinine 1.08 H 1.39 H (0.7-1.0) mg/dL Glucose 137 H 154 H (65-110) mg/dL Calcium 9.6 9.3 (8.4-10.2) mg/dL AST 34 (14-36) U/L ALT 24 (6-35) U/L Alkaline Phosphatase 73 (38-126) U/L Total Protein 8.0 (6.3-8.2) g/dL Albumin 4.2 (3.5-5.1) g/dL Intake and Output 03/03/25 03/04/25 03/04/25 23:59 07:59 15:59 Intake Total 63 340.0 Output Total 100 Balance 63 240.0 Intake: IV 63 140.0 dilTIAZem 100 MG/100 ML 100 mg 13 40.0 In 100 ml @ 5 MG/HR 5 mls/hr IV CONT .Q20H STA Rx#:[id number] Magnesium Sulf 4 gm/[id number] 100 4 gm In 100 ml @ 25 mls/hr IVPB ONCE ONE Rx#:[id number] cefTRIAXone 1 gm In Sodium 50 Chloride 0.9% IV 50 ml @ 100 mls/hr IVPB ONCE STA Rx#: [id number] Oral 200 Output: Urine 100 Patient Weight 03/04/25 23:59 Weight 74.5 kg
[2025-03-04] MEDS: ASPIRIN 81 MG ENTERIC TABLET PO (08:31)
--- NOTE | 2025-03-04 09:28 | PM.IMPN ---
Progress Note: A&P Assessment and Plan (1) Atrial fibrillation with RVR: Code(s): I48.91 - Unspecified atrial fibrillation Status: Acute (2) Elevated troponin I level: Code(s): R79.89 - Other specified abnormal findings of blood chemistry Status: Acute (3) Acute UTI: Code(s): N39.0 - Urinary tract infection, site not specified Status: Acute (4) Acute kidney injury superimposed on CKD: Code(s): N17.9 - Acute kidney failure, unspecified; N18.9 - Chronic kidney disease, unspecified Status: Acute Plan This morning her blood pressure is 100/40 and heart rate in the 70s. Continue diltiazem GTT. Cardiology consultation noted. Increase metoprolol to 25 mg p.o. b.i.d.. Continue aspirin. Pending TTE. Hold lisinopril. Patient wants to think about left atrial appendage occlusion device. Trend troponin to peak. Continue ceftriaxone, follow-up urine culture. Discontinue fluids, encourage oral intake. Trend renal function. Patient wishes to be full code. Subjective Date/time seen: 03/04/25 09:28 Interval history: No major acute overnight events. Her rate has been controlled. Patient denies any complaints. Review of Systems Review of Systems: All systems reviewed & are unremarkable except as noted in HPI and below (Subjective) Exam Const: General: comfortable and no acute distress Other: A&O x3 HENMT: Mouth: Yes moist mucous membranes Eyes: Pupils: Equal, round and reactive pupils present Neck: Neck: supple Resp: Effort & Inspection: normal respiratory effort Auscultation: clear to auscultation bilaterally Cardio: Rate: regular rate Rhythm: abnormal rhythm GI: GI Palp: Yes Soft to palpation Extrem: General: no edema Objective Data Vital Signs Vital Signs: Vital Signs - 24 hr 03/03/25 16:58 03/03/25 17:30 03/03/25 17:30 Temperature 98.9 F Pulse Rate 92 166 H Respiratory Rate 22 H 33 H Blood Pressure 138/73 121/81 Pulse Oximetry 96 97 Oxygen Delivery Room Air Room Air 03/03/25 17:45 03/03/25 19:01 03/03/25 19:24 Temperature Pulse Rate 135 H 119 H 110 H Respiratory Rate 27 H 20 Blood Pressure 114/79 100/66 100/66 Pulse Oximetry 98 96 Oxygen Delivery 03/03/25 19:40 03/03/25 20:00 03/03/25 20:00 Temperature 98.5 F Pulse Rate 127 H 113 H 110 H Respiratory Rate 22 H Blood Pressure 95/69 L 95/69 L Pulse Oximetry 96 Oxygen Delivery 03/03/25 21:45 03/03/25 22:00 03/03/25 22:00 Temperature 98.8 F Pulse Rate 103 H 98 Respiratory Rate 18 Blood Pressure 94/56 L 94/56 L Pulse Oximetry 97 96 Oxygen Delivery Autopap 03/03/25 22:00 03/04/25 00:00 03/04/25 00:00 Temperature 98.8 F Pulse Rate 98 84 76 Respiratory Rate 20 Blood Pressure 98/54 L Pulse Oximetry 98 Oxygen Delivery 03/04/25 00:00 03/04/25 01:59 03/04/25 02:00 Temperature 98.5 F Pulse Rate 75 76 87 Respiratory Rate 18 Blood Pressure 98/54 L 99/45 L Pulse Oximetry 98 Oxygen Delivery 03/04/25 02:01 03/04/25 04:00 03/04/25 04:00 Temperature 97.8 F Pulse Rate 76 70 70 Respiratory Rate 16 Blood Pressure 98/54 L 93/49 L 93/49 L Pulse Oximetry 98 Oxygen Delivery 03/04/25 04:00 03/04/25 06:00 03/04/25 06:00 Temperature Pulse Rate 77 91 77 Respiratory Rate 18 Blood Pressure 105/55 L Pulse Oximetry 98 Oxygen Delivery 03/04/25 06:00 03/04/25 07:32 03/04/25 08:00 Temperature 98 F Pulse Rate 77 83 76 Respiratory Rate 18 Blood Pressure 105/55 L 100/40 L 100/40 L Pulse Oximetry 100 Oxygen Delivery 03/04/25 08:30 03/04/25 08:37 Temperature Pulse Rate 75 88 Respiratory Rate Blood Pressure 100/40 L Pulse Oximetry Oxygen Delivery Intake/Output Intake/Output: Intake & Output 03/01/25 03/02/25 03/03/25 03/04/25 23:59 23:59 23:59 23:59 Intake Total 63 353.1 Output Total 100 Balance 63 253.1 Meds/Results Medications: Active Medications Generic Name Dose Route Start Last Admin Trade Name Freq PRN Reason Stop Dose Admin Acetaminophen 650 mg 03/03/25 18:22 Acetaminophen 325 Mg Tablet PO Q4H PRN Mild Pain (1-3) or Fever Aspirin 81 mg 03/04/25 09:00 03/04/25 08:31 Aspirin 81 Mg Enteric Tablet PO 81 mg DAILY [place] Administration Atorvastatin Calcium 20 mg 03/04/25 09:00 03/04/25 08:30 Atorvastatin 20 Mg Tablet PO 20 mg DAILY [place] Administration Fish Oil 1 gm 03/03/25 21:00 03/04/25 08:30 [place] 3 Polyunsat Fatty Acids 1 Gm Cap PO 1 gm Q12HR [place] Administration Diltiazem HCl 100 mg in 100 mls @ 5 mls/hr 03/03/25 19:18 03/04/25 08:37 Cardizem 100 Mg/100 Ml IV CONT 03/04/25 15:17 0 mg/hr .Q20H STA 0 mls/hr Titration Protocol 5 MG/HR Ceftriaxone Sodium 1 gm/ 50 mls @ 100 mls/hr 03/04/25 21:00 Sodium Chloride IVPB Q24H [place] Metoprolol Tartrate 25 mg 03/04/25 09:00 03/04/25 08:30 Metoprolol Tartrate 25 Mg Tablet PO 25 mg Q12HR [place] Administration Perflutren Lipid Microsphere 0 ml 03/04/25 08:53 Perflutren Lipid Microspheres 1.5 Ml Vial Diluted To 10 Ml Total Volume IV PUSH 03/07/25 08:53 ONCE PRN adequate visualization Protocol Sertraline HCl 50 mg 03/04/25 09:00 03/04/25 08:30 Sertraline Hcl 50 Mg Tablet PO 50 mg DAILY [place] Administration Radiology Results: ITS Impressions Chest X-Ray 03/03/25 17:29 IMPRESSION: No focal infiltrate or effusion. Labs Labs: Laboratory Results - last 24 hr 03/03/25 03/03/25 03/03/25 17:37 17:38 17:55 WBC 9.8 RBC 4.51 Hgb 12.4 Hct 39.0 MCV 86.5 MCH 27.5 MCHC 31.8 L RDW 14.1 Plt Count 217 MPV 10.9 H Immature Gran % (Auto) 0.4 Neut % (Auto) 85.7 H Lymph % (Auto) 9.4 L [place] % (Auto) 3.2 Eos % (Auto) 0.7 Baso % (Auto) 0.6 Lymph # (Auto) 0.92 [place] # (Auto) 0.3 Eos # (Auto) 0.1 Baso # (Auto) 0.1 Abs Immat Gran (auto) 0.04 H Absolute Neuts (auto) 8.4 H Absolute Nucleated RBC 0.000 Nucleated RBC % 0.0 Sodium 137 Potassium 4.8 Chloride 102 Carbon Dioxide 23 Anion Gap 12 BUN 31 H Creatinine 1.08 H Estim Creat Clear Calc 35 Estimated GFR 48 L Glucose 137 H Lactic Acid 2.3 H Calcium 9.6 Magnesium 1.4 L Total Bilirubin 1.6 H AST 34 ALT 24 Alkaline Phosphatase 73 Troponin I 0.041 H* NT-Pro-B Natriuret Pep 2890 H Total Protein 8.0 Albumin 4.2 Urine Color Urine Appearance Urine pH Ur Specific [place] Urine Protein Urine Glucose (UA) Urine Ketones Ur Blood (Man) Urine Nitrate Urine Bilirubin Urine Urobilinogen Leukocyte Esterase Rfl Urine RBC Urine WBC Ur Squamous Epith Cells Urine Bacteria Urine Casts 03/03/25 03/03/25 03/04/25 19:21 20:18 00:15 WBC RBC Hgb Hct MCV MCH MCHC RDW Plt Count MPV Immature Gran % (Auto) Neut % (Auto) Lymph % (Auto) [place] % (Auto) Eos % (Auto) Baso % (Auto) Lymph # (Auto) [place] # (Auto) Eos # (Auto) Baso # (Auto) Abs Immat Gran (auto) Absolute Neuts (auto) Absolute Nucleated RBC Nucleated RBC % Sodium Potassium Chloride Carbon Dioxide Anion Gap BUN Creatinine Estim Creat Clear Calc Estimated GFR Glucose Lactic Acid 1.7 Calcium Magnesium Total Bilirubin AST ALT Alkaline Phosphatase Troponin I 0.294 H* D 0.507 H* D NT-Pro-B Natriuret Pep Total Protein Albumin Urine Color Yellow Urine Appearance Cloudy H Urine pH 6.5 Ur Specific [place] 1.013 Urine Protein 2+ H Urine Glucose (UA) Negative Urine Ketones Negative Ur Blood (Man) 1+ H Urine Nitrate Negative Urine Bilirubin Negative Urine Urobilinogen 1.0 Leukocyte Esterase Rfl 2+ H Urine RBC 6-10 H Urine WBC >100 H Ur Squamous Epith Cells None seen Urine Bacteria 4+ Urine Casts 3-5 03/04/25 03:27 WBC RBC Hgb Hct MCV MCH MCHC RDW Plt Count MPV Immature Gran % (Auto) Neut % (Auto) Lymph % (Auto) [place] % (Auto) Eos % (Auto) Baso % (Auto) Lymph # (Auto) [place] # (Auto) Eos # (Auto) Baso # (Auto) Abs Immat Gran (auto) Absolute Neuts (auto) Absolute Nucleated RBC Nucleated RBC % Sodium 132 L Potassium 4.7 Chloride 98 Carbon Dioxide 27 Anion Gap 7 BUN 38 H Creatinine 1.39 H Estim Creat Clear Calc 27 Estimated GFR 36 L Glucose 154 H Lactic Acid Calcium 9.3 Magnesium 3.4 H Total Bilirubin AST ALT Alkaline Phosphatase Troponin I NT-Pro-B Natriuret Pep Total Protein Albumin Urine Color Urine Appearance Urine pH Ur Specific [place] Urine Protein Urine Glucose (UA) Urine Ketones Ur Blood (Man) Urine Nitrate Urine Bilirubin Urine Urobilinogen Leukocyte Esterase Rfl Urine RBC Urine WBC Ur Squamous Epith Cells Urine Bacteria Urine Casts
[2025-03-04 12:46] LABS: Troponin I 0.187 ng/mL (0.000-0.034)
[2025-03-04] MEDS: cefTRIAXone 1 GM in SODIUM CHLORIDE 0.9% IV 50 ML 100 ML IVPB (20:03)
[2025-03-05] VITALS (10 sets, daily range): BP systolic 108–128; BP diastolic 56–65; PULSE 79–117; RESP 16–18; TEMP 36.6–36.9; O2SAT 96–98
[2025-03-05 04:12] LABS: Hematocrit 34.3 % (37.0-47.0); Hemoglobin 11.0 g/dL (12.0-15.0); Immature Granulocyte Percent A 0.4 % (0-0.5); Lymphocytes Absolute Auto 2.42 K/mm3 (0.9-3.2); Mean Corpuscular HGB Conc 32.1 g/dl (32-36); Mean Corpuscular Hemoglobin 28.0 pg (26-34); Mean Corpuscular Volume 87.3 fl (80-100); Nucleated Red Blood Cells Absolute Auto 0.000 K/mm3 (0.0-0.012); Nucleated Red Blood Cells Perc 0.0 % (0.0-0.2); Platelet Count Result 202 k/mm3 (150-375); Red Blood Count 3.93 M/mm3 (4.2-5.4); White Blood Count 10.5 K/mm3 (4.5-10.0)
[2025-03-05 04:40] LABS: Anion Gap 9 mmol/L (4-12); Blood Urea Nitrogen 34 mg/dL (7-17); Calcium 8.6 mg/dL (8.4-10.2); Carbon Dioxide 25 mmol/L (22-30); Chloride 100 mmol/L (98-107); Estimated CRCL calculation 29 ml/min; Estimated Glomerular Filt Rate 39; Glucose 124 mg/dL (65-110); Magnesium 2.4 mg/dL (1.6-2.3); Potassium 4.6 mmol/L (3.4-5.0); Sodium 134 mmol/L (137-145)
[2025-03-05] MEDS: OMEGA 3 POLYUNSAT FATTY ACIDS 1 GM CAP PO (09:03)
[2025-03-05] MEDS: ASPIRIN 81 MG ENTERIC TABLET PO (09:04)
[2025-03-05] MEDS: SERTRALINE HCL 50 MG TABLET PO (09:04)
[2025-03-05] MEDS: ATORVASTATIN 20 MG TABLET PO (09:04)
[2025-03-05] MEDS: METOPROLOL TARTRATE 25 MG TABLET PO (09:04)
--- NOTE | 2025-03-05 12:58 | P.PNCA_ITS ---
Progress Note: A&P Assessment and Plan (1) A-fib: Code(s): I48.91 - Unspecified atrial fibrillation Status: Acute Plan This is an 84-year-old lady with coronary and valvular heart disease with previous surgical valve replacement and surgical revascularization. She has atrial fibrillation of recent onset, her heart rate is well controlled with metoprolol. She is not a candidate for systemic anticoagulation. From the cardiac perspective she can be discharged and outpatient follow-up has already been arranged in our office. She will obviously be in chronic atrial fib since she cannot be cardioverted since she cannot be anti coag Shaun Benton MD [facility] Subjective Date/time seen: Date of service: 03/05/25 12:58 Interval history: Follow-up visit on this 84-year-old lady with: Coronary artery disease with previous bypass grafting and aortic valve replacement. She presented to the hospital with rigors, chills and apparently was found to have evidence of urinary infection. At this time she was also noted to be in atrial fibrillation. Her heart rate is now controlled with metoprolol. She is not an anticoagulation candidate with recent intracranial bleed. She feels well this afternoon and has no cardiovascular complaints. Heart rate is well controlled on telemetry. She is wondering whether she can be discharged. No other providers have written notes on the chart to that effect as of this time. Exam Const: General: comfortable and no acute distress Other: Elderly white female resting comfortably HENMT: Mouth: Yes moist mucous membranes Eyes: Sclera: sclerae normal Neck: Neck: supple and no JVD Resp: Effort & Inspection: normal respiratory effort Auscultation: clear to auscultation bilaterally Cardio: Other: Irregularly irregular, soft crescendo decrescendo murmur at the left sternal border without radiation GI: GI Palp: Yes Soft to palpation Auscultation: normal bowel sounds Skin: General skin exam: normal color Neuro: Other: Alert and oriented x3 Extrem: General: normal to inspection Objective Data Vital Signs Vital Signs: Vital Signs - 24 hr 03/04/25 14:00 03/04/25 16:00 03/04/25 16:00 Temperature 36.6 C Pulse Rate 93 85 90 Respiratory Rate 18 Blood Pressure 115/70 Pulse Oximetry 96 Oxygen Delivery Fraction of Inspired Oxygen 03/04/25 18:00 03/04/25 20:00 03/04/25 20:00 Temperature 36.7 C Pulse Rate 104 H 105 H Respiratory Rate 16 Blood Pressure 119/65 Pulse Oximetry 98 Oxygen Delivery Room Air Fraction of Inspired Oxygen 03/04/25 20:00 03/04/25 20:03 03/04/25 21:28 Temperature Pulse Rate 92 95 96 Respiratory Rate 20 Blood Pressure Pulse Oximetry 96 Oxygen Delivery Room Air Fraction of Inspired Oxygen 21 03/04/25 22:00 03/05/25 00:00 03/05/25 00:00 Temperature 36.7 C Pulse Rate 114 H 98 Respiratory Rate 16 Blood Pressure 128/65 Pulse Oximetry 96 Oxygen Delivery Room Air Fraction of Inspired Oxygen 03/05/25 00:00 03/05/25 02:00 03/05/25 04:00 Temperature 36.6 C Pulse Rate 99 93 90 Respiratory Rate 16 Blood Pressure 125/59 L Pulse Oximetry 98 Oxygen Delivery Fraction of Inspired Oxygen 03/05/25 04:00 03/05/25 04:00 03/05/25 06:00 Temperature Pulse Rate 94 89 Respiratory Rate Blood Pressure Pulse Oximetry Oxygen Delivery Room Air Fraction of Inspired Oxygen 03/05/25 08:00 03/05/25 08:00 03/05/25 09:04 Temperature 36.9 C Pulse Rate 117 H 100 96 Respiratory Rate 18 Blood Pressure 119/56 L Pulse Oximetry 97 Oxygen Delivery Fraction of Inspired Oxygen 03/05/25 10:00 03/05/25 11:37 Temperature 36.8 C Pulse Rate 87 79 Respiratory Rate 18 Blood Pressure 108/64 Pulse Oximetry 98 Oxygen Delivery Fraction of Inspired Oxygen Intake/Output Intake/Output: Intake & Output 03/02/25 03/03/25 03/04/25 03/05/25 23:59 23:59 23:59 23:59 Intake Total 63 983.1 950 Output Total 100 Balance 63 883.1 950 Meds/Results Medications: Active Medications Generic Name Dose Route Start Last Admin Trade Name Freq PRN Reason Stop Dose Admin Acetaminophen 650 mg 03/03/25 18:22 Acetaminophen 325 Mg Tablet PO Q4H PRN Mild Pain (1-3) or Fever Aspirin 81 mg 03/04/25 09:00 03/05/25 09:04 Aspirin 81 Mg Enteric Tablet PO 81 mg DAILY [place] Administration Atorvastatin Calcium 20 mg 03/04/25 09:00 03/05/25 09:04 Atorvastatin 20 Mg Tablet PO 20 mg DAILY [place] Administration Fish Oil 1 gm 03/03/25 21:00 03/05/25 09:03 [place] 3 Polyunsat Fatty Acids 1 Gm Cap PO 1 gm Q12HR [place] Administration Ceftriaxone Sodium 1 gm/ 50 mls @ 100 mls/hr 03/04/25 21:00 03/04/25 20:33 Sodium Chloride IVPB Infused Q24H [place] Infusion Metoprolol Tartrate 25 mg 03/04/25 09:00 03/05/25 09:04 Metoprolol Tartrate 25 Mg Tablet PO 25 mg Q12HR [place] Administration Perflutren Lipid Microsphere 0 ml 03/04/25 08:53 Perflutren Lipid Microspheres 1.5 Ml Vial Diluted To 10 Ml Total Volume IV PUSH 03/07/25 08:53 ONCE PRN adequate visualization Protocol Sertraline HCl 50 mg 03/04/25 09:00 03/05/25 09:04 Sertraline Hcl 50 Mg Tablet PO 50 mg DAILY [place] Administration Radiology Results: ITS Impressions Chest X-Ray 03/03/25 17:29 IMPRESSION: No focal infiltrate or effusion. Labs Labs: Laboratory Results - last 24 hr 03/05/25 03:32 WBC 10.5 H RBC 3.93 L Hgb 11.0 L Hct 34.3 L MCV 87.3 MCH 28.0 MCHC 32.1 RDW 14.0 Plt Count 202 MPV 11.6 H Immature Gran % (Auto) 0.4 Neut % (Auto) 63.8 Lymph % (Auto) 23.2 [place] % (Auto) 10.4 H Eos % (Auto) 1.6 Baso % (Auto) 0.6 Lymph # (Auto) 2.42 [place] # (Auto) 1.1 H Eos # (Auto) 0.2 Baso # (Auto) 0.1 Abs Immat Gran (auto) 0.04 H Absolute Neuts (auto) 6.7 Absolute Nucleated RBC 0.000 Nucleated RBC % 0.0 Sodium 134 L Potassium 4.6 Chloride 100 Carbon Dioxide 25 Anion Gap 9 BUN 34 H Creatinine 1.29 H Estim Creat Clear Calc 29 Estimated GFR 39 L Glucose 124 H Calcium 8.6 Magnesium 2.4 H
--- NOTE | 2025-03-05 13:02 | P.PNIM_ITS ---
Progress Note: A&P Assessment and Plan (1) Atrial fibrillation with RVR: Code(s): I48.91 - Unspecified atrial fibrillation Status: Acute (2) Elevated troponin I level: Code(s): R79.89 - Other specified abnormal findings of blood chemistry Status: Acute (3) Acute UTI: Code(s): N39.0 - Urinary tract infection, site not specified Status: Acute (4) Acute kidney injury superimposed on CKD: Code(s): N17.9 - Acute kidney failure, unspecified; N18.9 - Chronic kidney disease, unspecified Status: Acute Plan Blood pressure is stable. Heart rate irregular and controlled. Diltiazem GTT discontinue on 03/04/2025. Continue metoprolol 25 mg p.o. b.i.d.. Continue daily baby aspirin. TTE ordered. Cardiology recommendations noted. Continue to hold lisinopril. Troponin peaked. Continue ceftriaxone, follow-up urine culture. Discontinue fluids, encourage oral intake. Trend renal function. Patient wishes to be full code. SCDs. Subjective Date/time seen: 03/05/25 13:02 Interval history: No acute overnight events. Patient continues to report no chest pain shortness of breath or palpitations. Review of Systems Review of Systems: All systems reviewed & are unremarkable except as noted in HPI and below (Subjective) Exam Const: General: comfortable and no acute distress Other: A&O x3 HENMT: Mouth: Yes moist mucous membranes Eyes: Pupils: Equal, round and reactive pupils present Neck: Neck: supple Resp: Effort & Inspection: normal respiratory effort Auscultation: clear to auscultation bilaterally Cardio: Rate: regular rate Rhythm: abnormal rhythm Heart sounds: Murmur heart sound present GI: GI Palp: Yes Soft to palpation Extrem: General: no edema Objective Data Vital Signs Vital Signs: Vital Signs - 24 hr 03/04/25 14:00 03/04/25 16:00 03/04/25 16:00 Temperature 98 F Pulse Rate 93 85 90 Respiratory Rate 18 Blood Pressure 115/70 Pulse Oximetry 96 Oxygen Delivery Fraction of Inspired Oxygen 03/04/25 18:00 03/04/25 20:00 03/04/25 20:00 Temperature 98.1 F Pulse Rate 104 H 105 H Respiratory Rate 16 Blood Pressure 119/65 Pulse Oximetry 98 Oxygen Delivery Room Air Fraction of Inspired Oxygen 03/04/25 20:00 03/04/25 20:03 03/04/25 21:28 Temperature Pulse Rate 92 95 96 Respiratory Rate 20 Blood Pressure Pulse Oximetry 96 Oxygen Delivery Room Air Fraction of Inspired Oxygen 21 03/04/25 22:00 03/05/25 00:00 03/05/25 00:00 Temperature 98.1 F Pulse Rate 114 H 98 Respiratory Rate 16 Blood Pressure 128/65 Pulse Oximetry 96 Oxygen Delivery Room Air Fraction of Inspired Oxygen 03/05/25 00:00 03/05/25 02:00 03/05/25 04:00 Temperature 97.8 F Pulse Rate 99 93 90 Respiratory Rate 16 Blood Pressure 125/59 L Pulse Oximetry 98 Oxygen Delivery Fraction of Inspired Oxygen 03/05/25 04:00 03/05/25 04:00 03/05/25 06:00 Temperature Pulse Rate 94 89 Respiratory Rate Blood Pressure Pulse Oximetry Oxygen Delivery Room Air Fraction of Inspired Oxygen 03/05/25 08:00 03/05/25 08:00 03/05/25 09:04 Temperature 98.5 F Pulse Rate 117 H 100 96 Respiratory Rate 18 Blood Pressure 119/56 L Pulse Oximetry 97 Oxygen Delivery Fraction of Inspired Oxygen 03/05/25 10:00 03/05/25 11:37 Temperature 98.3 F Pulse Rate 87 79 Respiratory Rate 18 Blood Pressure 108/64 Pulse Oximetry 98 Oxygen Delivery Fraction of Inspired Oxygen Intake/Output Intake/Output: Intake & Output 03/02/25 03/03/25 03/04/25 03/05/25 23:59 23:59 23:59 23:59 Intake Total 63 983.1 950 Output Total 100 Balance 63 883.1 950 Meds/Results Medications: Active Medications Generic Name Dose Route Start Last Admin Trade Name Freq PRN Reason Stop Dose Admin Acetaminophen 650 mg 03/03/25 18:22 Acetaminophen 325 Mg Tablet PO Q4H PRN Mild Pain (1-3) or Fever Aspirin 81 mg 03/04/25 09:00 03/05/25 09:04 Aspirin 81 Mg Enteric Tablet PO 81 mg DAILY [place] Administration Atorvastatin Calcium 20 mg 03/04/25 09:00 03/05/25 09:04 Atorvastatin 20 Mg Tablet PO 20 mg DAILY [place] Administration Fish Oil 1 gm 03/03/25 21:00 03/05/25 09:03 [place] 3 Polyunsat Fatty Acids 1 Gm Cap PO 1 gm Q12HR [place] Administration Ceftriaxone Sodium 1 gm/ 50 mls @ 100 mls/hr 03/04/25 21:00 03/04/25 20:33 Sodium Chloride IVPB Infused Q24H [place] Infusion Metoprolol Tartrate 25 mg 03/04/25 09:00 03/05/25 09:04 Metoprolol Tartrate 25 Mg Tablet PO 25 mg Q12HR [place] Administration Perflutren Lipid Microsphere 0 ml 03/04/25 08:53 Perflutren Lipid Microspheres 1.5 Ml Vial Diluted To 10 Ml Total Volume IV PUSH 03/07/25 08:53 ONCE PRN adequate visualization Protocol Sertraline HCl 50 mg 03/04/25 09:00 03/05/25 09:04 Sertraline Hcl 50 Mg Tablet PO 50 mg DAILY [place] Administration Radiology Results: ITS Impressions Chest X-Ray 03/03/25 17:29 IMPRESSION: No focal infiltrate or effusion. Labs Labs: Laboratory Results - last 24 hr 03/05/25 03:32 WBC 10.5 H RBC 3.93 L Hgb 11.0 L Hct 34.3 L MCV 87.3 MCH 28.0 MCHC 32.1 RDW 14.0 Plt Count 202 MPV 11.6 H Immature Gran % (Auto) 0.4 Neut % (Auto) 63.8 Lymph % (Auto) 23.2 [place] % (Auto) 10.4 H Eos % (Auto) 1.6 Baso % (Auto) 0.6 Lymph # (Auto) 2.42 [place] # (Auto) 1.1 H Eos # (Auto) 0.2 Baso # (Auto) 0.1 Abs Immat Gran (auto) 0.04 H Absolute Neuts (auto) 6.7 Absolute Nucleated RBC 0.000 Nucleated RBC % 0.0 Sodium 134 L Potassium 4.6 Chloride 100 Carbon Dioxide 25 Anion Gap 9 BUN 34 H Creatinine 1.29 H Estim Creat Clear Calc 29 Estimated GFR 39 L Glucose 124 H Calcium 8.6 Magnesium 2.4 H
--- NOTE | 2025-03-05 14:52 | PM.DS ---
DS: Admitting Diagnosis Discharge Date 03/25/2025 Admitting Diagnosis Atrial fibrillation DS: Discharge Diagnosis Discharge Diagnosis (1) Atrial fibrillation with RVR: Code(s): I48.91 - Unspecified atrial fibrillation Status: Acute (2) Lesion of bladder: Code(s): N32.9 - Bladder disorder, unspecified Status: Acute (3) Acute UTI: Code(s): N39.0 - Urinary tract infection, site not specified Status: Acute DS: Summary Hospital Course Hospital Course: Please see progress note from today for more info. Ultimately, the patient refused to stay any longer. She went to be discharged on Augmentin acknowledging the urine culture was not complete. She wants to follow with Cardiology in the outpatient setting she sees both someone in [place] and the [facility]. She wants to see a neurosurgeon for recommendations on blood thinner. She does have follow-up with urologist for the bladder mass. Otherwise, stable, discharged in stable condition to home on 03/05/2025. Patient was full code during her admission. Time Spent with Patient Time attestation: Total time spent providing and/or coordinating discharge services: Exam Const: General: comfortable and no acute distress Other: A&O x3 HENMT: Mouth: Yes moist mucous membranes Eyes: Pupils: Equal, round and reactive pupils present Neck: Neck: supple Resp: Effort & Inspection: normal respiratory effort Auscultation: clear to auscultation bilaterally Cardio: Rate: regular rate Rhythm: abnormal rhythm Heart sounds: Murmur heart sound present GI: GI Palp: Yes Soft to palpation Extrem: General: no edema DS: Data Data Completed and Pending Labs on day of discharge: Labs from last 24 hours 03/05/25 03:32 WBC 10.5 H RBC 3.93 L Hgb 11.0 L Hct 34.3 L MCV 87.3 MCH 28.0 MCHC 32.1 RDW 14.0 Plt Count 202 MPV 11.6 H Immature Gran % (Auto) 0.4 Neut % (Auto) 63.8 Lymph % (Auto) 23.2 [place] % (Auto) 10.4 H Eos % (Auto) 1.6 Baso % (Auto) 0.6 Lymph # (Auto) 2.42 [place] # (Auto) 1.1 H Eos # (Auto) 0.2 Baso # (Auto) 0.1 Abs Immat Gran (auto) 0.04 H Absolute Neuts (auto) 6.7 Absolute Nucleated RBC 0.000 Nucleated RBC % 0.0 Sodium 134 L Potassium 4.6 Chloride 100 Carbon Dioxide 25 Anion Gap 9 BUN 34 H Creatinine 1.29 H Estim Creat Clear Calc 29 Estimated GFR 39 L Glucose 124 H Calcium 8.6 Magnesium 2.4 H Discharge Plan Discharge Attending physician on discharge: Mary Jane Cui Consulting providers: Shaun Benton Discharging Clinician: Mary Jane Cui Patient Disposition: Home Activity: november shower Diet: heart healthy Patient Instructions: Antibiotic Form, Heart Failure (GEN) Patient Language: Hebrew Stand Alone Forms: General Discharge Information Follow-up/Referrals: Sancho Zavala MD [Primary Care Provider] - Shaun Benton MD [Physician] - Discharge Medications: New amoxicillin-pot clavulanate 875-125 mg tablet 1 tablet PO Q12H Qty: 5 0RF Continued aspirin [Adult Low Dose Aspirin] 81 mg tablet,delayed release (DR/EC) 81 mg PO DAILY [id number] Tablet 1 tablet PO DAILY nitroglycerin 0.4 mg tablet, sublingual 0.4 mg sublingual Q5M PRN (Reason: chest pain) Rx Instructions: do not exceed 3 doses per episode omega-3 fatty acids [Fish Oil Concentrate] 1,000 mg capsule 1,000 mg PO .Q12HR alendronate 70 mg tablet 70 mg PO WEEKLY Rx Instructions: TAKE 1 TABLET BY MOUTH WEEKLY WITH 8 OZ OF PLAIN WATER 30 MINUTES BEFORE FIRST FOOD, DRINK OR MEDS. STAY UPRIGHT FOR 30 MINS sertraline 25 mg tablet 50 mg PO DAILY metoprolol tartrate 25 mg tablet 25 mg PO Q12H atorvastatin 20 mg tablet 20 mg PO DAILY Qty: 100 1RF Discontinued lisinopril 10 mg tablet 10 mg PO .Q12HR Date of admission: 03/04/25 10:36 Primary Care Provider: Sancho Zavala Admitting Provider: Monty Solano Attending physician on admission: Monty Solano Condition: Stable Hospitalist MIPS Heart Failure (Exclusion) Patient has history of Heart Transplant or Left Ventricular Assistive Device?: No IF YES, STOP HERE Heart Failure (Qualifier) Patient has current or prior documentation of LVEF less than or equal to 40%, or mod/servere depressed LVSF?: No IF NO, STOP HERE
== END 2025-03-05 17:41 | disposition home or self-care (01) | DRG 309 ==
LOC: ANHED 18:20 → ANHIMU 19:00
PROVIDERS: Nurse Practitioner; Admitting Provider General Practice; Emergency Provider Family Medicine; PCP Family Medicine; Visit Provider General Practice
DX: I48.91 Unspecified atrial fibrillation (principal); N17.9 Acute kidney failure, unspecified; N39.0 Urinary tract infection, site not specified; Z95.2 Presence of prosthetic heart valve; R79.89 Other specified abnormal findings of blood chemistry; N32.9 Bladder disorder, unspecified; E78.2 Mixed hyperlipidemia; I25.10 Atherosclerotic heart disease of native coronary artery without angina pectoris; I25.2 Old myocardial infarction; I12.9 Hypertensive chronic kidney disease with stage 1 through stage 4 chronic kidney disease, or unspecified chronic kidney disease; N18.30 Chronic kidney disease, stage 3 unspecified; R73.03 Prediabetes; E55.9 Vitamin D deficiency, unspecified; Z79.82 Long term (current) use of aspirin; Z79.899 Other long term (current) drug therapy; Z86.59 Personal history of other mental and behavioral disorders; Z86.79 Personal history of other diseases of the circulatory system; Z87.891 Personal history of nicotine dependence; Z91.81 History of falling; Z95.1 Presence of aortocoronary bypass graft; Z95.5 Presence of coronary angioplasty implant and graft
CPT/HCPCS: 36415; 71045; 80048; 80053; 81001; 83605; 83735; 83880; 84484; 85025; 87086; 93005; 93306; 96361; 96365; 96366; 96367; 96368; 96374; 96376; 99285; A9270; G0378; J0696; J1163; J3475